=== PATIENT | male | born 1950 | race Two or more races ===

== ENCOUNTER → 2020-01-02 10:49 | Outpatient (BNVA) | payer MEDICARE, MEDICAID, SELFPAY | PROVIDERS: PCP Internal Medicine Geriatric Medicine; Visit Provider Surgery Vascular Surgery | DX: I73.9 Peripheral vascular disease, unspecified (principal) | CPT/HCPCS: 99213 ==

== ENCOUNTER 2020-01-10 05:59 | Day surgery (SDC) | payer MEDICARE, MEDICAID, SELFPAY ==
[2020-01-10] VITALS (11 sets, daily range): BP systolic 112–147; BP diastolic 59–83; PULSE 61–90; RESP 16–78; TEMP 36.1–36.6; O2SAT 94–98; BMI 29.2
[2020-01-10 06:26] LABS: Glucose, Whole Blood 166 mg/dL (60-115)
[2020-01-10 06:40] LABS: MANUAL DIFF FLAG NO
[2020-01-10 06:46] LABS: Basophils Absolute Auto 0.1 X10*3/uL (0.0-0.2); Basophils Percent Auto 0.8 % (0-2); Eosinophils Absolute Auto 0.3 X10*3/uL (0.0-0.4); Eosinophils Percent Auto 3.9 % (0-4); Hematocrit 36.7 % (42-52); Hemoglobin 12.6 g/dl (14.0-18.0); Imm Gran Abs Auto 0.05 X10*3/uL (0.00-0.03); Imm Gran Pct Auto 0.6 % (0.0-0.4); Lymphocytes Percent Auto 23.7 % (20-40); Mean Corpuscular HGB Conc 34.3 g/dl (31.0-36.0); Mean Corpuscular Hemoglobin 30.7 pg (27.0-33.0); Mean Corpuscular Volume 89.3 fL (80-98); Mean Platelet Volume 9.5 fL (9.4-12.4); Monocytes Absolute Auto 0.6 X10*3/uL (0.1-1.2); Monocytes Percent Auto 7.3 % (2-11); Neutrophils Absolute Auto 5.5 X10*3/uL (2.0-8.3); Neutrophils Percent Auto 63.7 % (45-73); Platelet Count 375 X10*3/uL (160-400); Red Blood Count 4.11 X10*6/uL (4.60-5.80); Red Cell Distribution Width 12.2 % (11.0-16.0); White Blood Count 8.6 X10*3/uL (4.8-10.8)
[2020-01-10 06:50] LABS: Prothrombin Time 11.9 SEC (10.8-13.0)
[2020-01-10 07:04] LABS: Anion Gap 13 (12-20); Blood Urea Nitrogen 20 mg/dL (9-16); Calcium 9.5 mg/dL (8.4-10.2); Carbon Dioxide 26 mmol/L (22-29); Chloride 103 mmol/L (96-108); Creatinine Clr Calc Pharmacy 47.8; Estimated Glomerular Filt Rate 52; Glucose Random 197 mg/dL (60-115); Partial Thromboplastin Time 32.4 SEC (24.1-38.0); Potassium 4.2 mmol/l (3.3-5.1); Sodium 138 mmol/L (135-145)
[2020-01-10] MEDS: 0.9 % Sodium Chloride 1,000 ML 100 ML IVCONT (07:36)
[2020-01-10] MEDS: iohexoL 300 MG/ML 100 ML INFUS..BTL 40 ML IV (11:16)
[2020-01-10] MEDS: Lidocaine HCl 1 % 20 ML VIAL 10 ML SUBCUT (11:17)
[2020-01-10] MEDS: Heparin Sodium,Porcine 5,000 UNIT/ML VIAL 10000 UNIT IVPUSH (11:23)
--- NOTE | 2020-01-10 12:20 | OP_ITS ---
SURGEON: Ventura Webber MD INDICATIONS: Dg is a 70-year-old gentleman, history of claudication. He had noninvasive testing, which demonstrated some calcified below-knee vessels. He now presents for endovascular intervention. Risks, benefits, and complications were discussed in detail with the patient. The patient understood and consented. PREOPERATIVE DIAGNOSIS: POSTOPERATIVE DIAGNOSIS: PROCEDURE PERFORMED: ESTIMATED BLOOD LOSS: Minimal. COMPLICATIONS: ANESTHESIA: Local with moderate conscious sedation performed by me for a total of 31 minutes. ASSISTANTS: SPECIMENS: None. PREPROCEDURE DIAGNOSIS: Atherosclerosis with claudication. POSTPROCEDURE DIAGNOSIS: Atherosclerosis with claudication. PROCEDURES PERFORMED: 1. Ultrasound-guided right common femoral access. 2. Aortogram with left lower extremity runoff (third order catheter placement). 3. StarClose closure device placement. DESCRIPTION OF PROCEDURE: The patient was brought to the angiography suite, prior to which timeout was called for patient identification and site verification. Bilateral groins were prepped and draped in standard surgical fashion. Under ultrasound guidance, right common femoral was accessed using micropuncture needle, wire, subsequently 4-Wallisian sheath. Flush catheter was brought up to the level of the aorta. Aortogram was then undertaken, brought down to the level of the iliacs. Iliacs were subsequently imaged. Catheter was brought up and over and parked into the SFA, through which runoff study was undertaken. No intervention was indicated. Catheter, wire, and sheath were then removed. Direct pressure was held for 10 minutes. The patient tolerated the procedure well, returned to Recovery with stable vitals. INTERPRETATION OF FILMS: 1. Ultrasound guidance demonstrated appropriate puncture. 2. Aortogram demonstrated normal-caliber aorta with good flow down to the iliacs. 3. Left lower extremity study demonstrated good flow all the way down through the common femoral, profunda femoris. SFA was patent throughout its entire length. Popliteal seemed reasonable with minimal disease. Below-knee anterior tibial and peroneal seem to be fairly normal. Posterior tibial significantly calcified, but patent all the way through with no flow-limiting stenosis and there was a completion arch at the foot. CONCLUSION: Successful diagnostic angiogram. No intervention indicated. The patient will follow up with me as an outpatient. DRAINS: None. MD BIMAL Nye/MLL / [id number]
== END 2020-01-10 13:20 | disposition home or self-care (01) ==
LOC: HO.SSS 06:00
PROVIDERS: PCP Internal Medicine Geriatric Medicine; Visit Provider Surgery Vascular Surgery
PROC: (CPT 36247; principal; 2020-01-10 07:30)
DX: E11.51 Type 2 diabetes mellitus with diabetic peripheral angiopathy without gangrene (principal); I70.212 Atherosclerosis of native arteries of extremities with intermittent claudication, left leg; Z79.4 Long term (current) use of insulin
CPT/HCPCS: 36247; 36245; 36415; 75625; 75710; 76937; 80048; 82947; 85025; 85610; 85730; 99152; 99153; C1760; C1769; C1887; J2250; J3010; Q9967

== ENCOUNTER → 2020-01-23 13:47 | Outpatient (BNVA) | payer MEDICARE, MEDICAID, SELFPAY | PROVIDERS: PCP Internal Medicine Geriatric Medicine; Visit Provider Surgery Vascular Surgery | DX: I73.9 Peripheral vascular disease, unspecified (principal); Z98.890 Other specified postprocedural states | CPT/HCPCS: 99212 ==

== ENCOUNTER 2020-02-12 08:42 | Outpatient (REF) | payer MEDICARE, MEDICAID, SELFPAY ==
[2020-02-12 10:21] LABS: MANUAL DIFF FLAG NO
[2020-02-12 10:34] LABS: Basophils Absolute Auto 0.1 X10*3/uL (0.0-0.2); Basophils Percent Auto 0.7 % (0-2); Eosinophils Absolute Auto 0.3 X10*3/uL (0.0-0.4); Eosinophils Percent Auto 3.1 % (0-4); Hematocrit 38.3 % (42-52); Imm Gran Abs Auto 0.05 X10*3/uL (0.00-0.03); Imm Gran Pct Auto 0.6 % (0.0-0.4); Lymphocytes Absolute Auto 1.9 X10*3/uL (1.2-4.9); Lymphocytes Percent Auto 23.4 % (20-40); Mean Corpuscular HGB Conc 33.9 g/dl (31.0-36.0); Mean Corpuscular Hemoglobin 30.7 pg (27.0-33.0); Mean Corpuscular Volume 90.3 fL (80-98); Monocytes Absolute Auto 0.5 X10*3/uL (0.1-1.2); Monocytes Percent Auto 5.4 % (2-11); Neutrophils Absolute Auto 5.5 X10*3/uL (2.0-8.3); Neutrophils Percent Auto 66.8 % (45-73); Platelet Count 372 X10*3/uL (160-400); Red Blood Count 4.24 X10*6/uL (4.60-5.80); Red Cell Distribution Width 12.3 % (11.0-16.0); White Blood Count 8.3 X10*3/uL (4.8-10.8)
[2020-02-12 10:49] LABS: Glucose Urine UA NEG (NEG); Leukocyte Esterase Urine NEG (NEG); Nitrite Urine NEG (NEG); Specific Gravity - Urine 1.025 (1.005-1.025); Urine Blood NEG (NEG); Urine Ketones NEG (NEG); Urine Protein 1+ MG/DL (NEG-TRACE)
[2020-02-12 10:52] LABS: Appearance Urine CLEAR; Color Urine YELLOW
[2020-02-12 11:04] LABS: Albumin Level 4.3 g/dL (3.5-5.0); Anion Gap 15 (12-20); Blood Urea Nitrogen 25 mg/dL (9-16); Calcium 9.4 mg/dL (8.4-10.2); Carbon Dioxide 27 mmol/L (22-29); Chloride 101 mmol/L (96-108); Estimated Glomerular Filt Rate 52; Magnesium 1.9 mg/dL (1.6-2.6); Phosphorus 3.8 mg/dL (2.7-4.5); Potassium 4.9 mmol/l (3.3-5.1); Sodium 138 mmol/L (135-145)
[2020-02-12 11:08] LABS: Mucus Urine 1+ /LPF; RBC Urine 0 /HPF (0); Squamous Epithelial Cell Urine 1+ /LPF; WBC Urine 0 /HPF (0-4)
[2020-02-12 11:19] LABS: Renal w Reflex Lab Use Only Order verified
[2020-02-12 11:29] LABS: Vitamin D 25-OH Total 28.5 ng/mL (>30)
[2020-02-12 12:25] LABS: Creatinine, mg/dL 113.48
[2020-02-12 12:40] LABS: Creatinine Urine 130.03 mg/dL; Microalbum/Creatinine Ratio Ur 237.6 ug/mg cr; Total Protein Urine Random 52 mg/dL (<12)
[2020-02-12 13:23] LABS: Uric Acid, mg/dL 37.5 mg/dL
[2020-02-12 13:56] LABS: Creatinine (CrCl) 1.35 mg/dL (0.5-1.4); Creatinine, 24Hr Urine 1.7 G/Day (1.0-2.0); Total Volume 24 Hour Urine 1525 mL
[2020-02-12 13:57] LABS: Creatinine, 24Hr Urine 1.7 G/Day (1.0-2.0); Total Volume 24 Hour Urine 1525 mL; Uric Acid, 24 Hr Urine 571.9 mg/Day (250-750)
[2020-02-13 17:58] LABS: Calcium, 24 Hr Urine 85 mg/24 h; Calcium/Creatinine Ratio 47 mg/g creat (30-210); Creatinine, 24U 1.83 g/24 h (0.50-2.15); Urea, 24 Hr Urine 14 g/24 h (6-17)
[2020-02-14 12:12] LABS: Calcium (PTHI) 9.7 mg/dL (8.6-10.3); PTHI 35 pg/mL (14-64)
[2020-02-19 07:42] LABS: 24hr Urine Total Volume 1525 mL; Citric Acid, 24hr Urine 859 mg/24 h (100-1300); Citric Acid/Creat Ratio 24U 486 mg/g creat (60-660)
[2020-02-19 07:59] LABS: Creatinine 24Hr Urine SEE ABOVE
== END 2020-02-12 08:43 | disposition home or self-care (01) ==
LOC: HO.LAB 08:42
PROVIDERS: PCP Internal Medicine Geriatric Medicine; Visit Provider Internal Medicine Nephrology
DX: E11.22 Type 2 diabetes mellitus with diabetic chronic kidney disease (principal); N18.30 Chronic kidney disease, stage 3 unspecified; E78.5 Hyperlipidemia, unspecified
CPT/HCPCS: 36415; 80051; 81001; 82040; 82043; 82306; 82310; 82340; 82507; 82565; 82575; 83735; 83945; 83970; 84100; 84156; 84520; 84540; 84560; 85025

== ENCOUNTER 2020-03-25 11:12 | Outpatient (REF) | payer MEDICARE, MEDICAID, SELFPAY ==
--- NOTE | 2020-03-25 | US_ITS ---
EXAMINATION: US RETROPERITONEAL LIMITED (RENAL ONLY) CLINICAL INFORMATION: Chronic kidney disease stage III. COMPARISON: Renal ultrasound 05/18/2017 TECHNIQUE: Real-time imaging of the kidneys. FINDINGS: RIGHT KIDNEY: 11.8 x 6.3 x 5.1 cm (SAG x AP x TRV). The kidney is normal in size, contour, and echogenicity. Renal cortical thickness is normal. There is a 3 mm echogenic density in the midpole with twinkle artifact questionable for a stone. No focal parenchymal lesions or hydronephrosis. LEFT KIDNEY: 10.7 x 4.9 x 5.4 cm (SAG x AP x TRV). The kidney is normal in size, contour, and echogenicity. Renal cortical thickness is normal. There is a 3 mm echogenic density in the midpole with twinkle artifact and acoustic shadowing suggestive of a stone. No focal parenchymal lesions or hydronephrosis. US/US renal BI IMPRESSION: Left renal stone and probable small right renal stone.
== END 2020-03-25 11:13 | disposition home or self-care (01) ==
LOC: HO.US 11:12
PROVIDERS: Visit Provider Internal Medicine Nephrology
DX: N18.30 Chronic kidney disease, stage 3 unspecified (principal); E11.22 Type 2 diabetes mellitus with diabetic chronic kidney disease; E78.5 Hyperlipidemia, unspecified
CPT/HCPCS: 76775

== ENCOUNTER → 2020-04-03 14:15 | Outpatient (BNVA) | payer MEDICARE, MEDICAID, SELFPAY | PROVIDERS: PCP Internal Medicine Geriatric Medicine; Visit Provider Urology | DX: N48.6 Induration penis plastica (principal) | CPT/HCPCS: 99202 ==

== ENCOUNTER → 2020-05-03 12:16 | Outpatient (BNVA) | payer MEDICARE, MEDICAID, SELFPAY | PROVIDERS: PCP Internal Medicine Geriatric Medicine; Visit Provider Internal Medicine Gastroenterology | DX: Z76.89 Persons encountering health services in other specified circumstances (principal) | CPT/HCPCS: Q3014 ==

== ENCOUNTER 2020-05-09 07:38 | Outpatient (REF) | payer MEDICARE, MEDICAID, SELFPAY | END 2020-05-09 07:39 | disposition home or self-care (01) | LOC: HO.LAB 07:38 | PROVIDERS: Visit Provider Internal Medicine | DX: Z20.822 Contact with and (suspected) exposure to COVID-19 (principal) | CPT/HCPCS: 36415; C9803; U0003; U0005 ==

== ENCOUNTER → 2020-06-20 08:14 | Day surgery (SDC) | payer MEDICARE, MEDICAID, SELFPAY ==
[2020-06-17 08:56] VITALS: BMI 28.9
--- NOTE | 2020-06-19 09:14 | HO.ANESPROP2 ---
Documented by User: Dolores Samayoa 06/19/20 09:15 HPI - Anesthesia Eval Consult details Narrative: 70yo M for Colonoscopy PMFSH Active Problems Active Problems: All Active Problems (Updated 06/17/20 @ 08:56 by Carito Higuera) PAD (peripheral artery disease) (Acute) Peyronie's disease (Acute) Colon polyp (Acute) Past Medical History Medical History (Updated 06/20/20 @ 09:02 by Nesha Driscoll) Anxiety Chronic kidney disease Diabetes Diabetic autonomic neuropathy Hyperglycemia Hyperlipidemia Hypertension S/P angiogram of extremity (~12/2019) Family History Family History Father No problems noted. Mother No problems noted. Surgical History Surgical History History of esophagogastroduodenoscopy (EGD) Hx of colonoscopy Hx of hand surgery Social History Social History (Updated 06/20/20 @ 08:59 by Nesha Driscoll) Smoking Status: Former smoker Tobacco Type: Cigarette Years Smoked: 35 Use of substances other than those prescribed or required for medical reasons: No Advance Directives Information Provided: No Meds Allergies Allergy/AdvReac Type Severity Reaction Status Date / Time No Known Allergies Allergy Verified 05/03/20 12:16 [No Known Allergies*] Home Medications Medication Instructions Recorded Confirmed Last Taken Type atorvastatin 40 mg tablet 40 mg PO DAILY 01/02/20 06/17/20 Unknown History bisacodyl 5 mg tablet,delayed 5 mg PO BEDTIME 01/02/20 05/03/20 Unknown History release escitalopram oxalate 10 mg tablet 10 mg PO DAILY 01/02/20 06/20/20 06/20/20 07:30 History hydrochlorothiazide 25 mg tablet 25 mg PO DAILY 01/02/20 06/17/20 Unknown History insulin admin supplies #1 ea 01/02/20 05/03/20 Unknown History insulin glargine 100 unit/mL 20 unit SUBCUT QPM 01/02/20 06/17/20 Unknown History subcutaneous solution irbesartan 300 mg tablet 300 mg PO DAILY 01/02/20 06/17/20 Unknown History ketotifen fumarate 0.025 % (0.035 1 drp OPHTHALMIC (EYE) BID 10/20/20 04/05/21 Unknown History %) eye drops metformin 1,000 mg tablet 1,000 mg PO DAILY 01/02/20 06/17/20 Unknown History Exam Exam Date and Time: June 19, 2020 0914 Height,Weight and Vital Signs: Height 5 ft 5 in Weight 78.925 kg Pertinent Lab Results Pertinent Lab Results: Laboratory Tests 02/12/20 02/12/20 09:26 09:26 WBC 8.3 Hgb 13.0 L Hct 38.3 L Plt Count 372 Sodium 138 Potassium 4.9 Chloride 101 Carbon Dioxide 27 BUN 25 H Creatinine 1.35 Assessment and Plan Assessment Anesthesia Assessment: Chart Reviewed Documented by User: Nesha Driscoll 06/20/20 09:03 [facility] Past Medical History Medical History (Updated 06/20/20 @ 09:02 by Nesha Driscoll) Anxiety Chronic kidney disease Diabetes Diabetic autonomic neuropathy Hyperglycemia Hyperlipidemia Hypertension S/P angiogram of extremity (~12/2019) Family History Family History Father No problems noted. Mother No problems noted. Family history of problems with anesthesia: No Surgical History Surgical History History of esophagogastroduodenoscopy (EGD) Hx of colonoscopy Hx of hand surgery History of Problems with Anesthesia: No Social History Social History (Updated 06/20/20 @ 08:59 by Nesha Driscoll) Smoking Status: Former smoker Tobacco Type: Cigarette Years Smoked: 35 Use of substances other than those prescribed or required for medical reasons: No Advance Directives Information Provided: No Meds Allergies Allergy/AdvReac Type Severity Reaction Status Date / Time No Known Allergies Allergy Verified 05/03/20 12:16 [No Known Allergies*] Home Medications Medication Instructions Recorded Confirmed Last Taken Type atorvastatin 40 mg tablet 40 mg PO DAILY 01/02/20 06/17/20 Unknown History bisacodyl 5 mg tablet,delayed 5 mg PO BEDTIME 01/02/20 05/03/20 Unknown History release escitalopram oxalate 10 mg tablet 10 mg PO DAILY 01/02/20 06/20/20 06/20/20 07:30 History hydrochlorothiazide 25 mg tablet 25 mg PO DAILY 01/02/20 06/17/20 Unknown History insulin admin supplies #1 ea 01/02/20 05/03/20 Unknown History insulin glargine 100 unit/mL 20 unit SUBCUT QPM 01/02/20 06/17/20 Unknown History subcutaneous solution irbesartan 300 mg tablet 300 mg PO DAILY 01/02/20 06/17/20 Unknown History ketotifen fumarate 0.025 % (0.035 1 drp OPHTHALMIC (EYE) BID 01/02/20 06/17/20 Unknown History %) eye drops metformin 1,000 mg tablet 1,000 mg PO DAILY 01/02/20 06/17/20 Unknown History Exam Height,Weight and Vital Signs: Vital Signs Temp Pulse Resp BP Pulse Ox 06/20/20 08:43 97.5 F 88 18 149/77 H 100 Pertinent Lab Results Pertinent Lab Results: Lab Results 06/20/20 Range/Units 08:31 POC Glucose 143 H (60-115) mg/dL Airway Mallampati Class: III TM Dist: >3cm Neck ROM: Full Loose/Missing/Broken Teeth: Yes (Some missing) Heart: RRR Lungs: CTAB Assessment and Plan Assessment Anesthesia Assessment: Anesthesia Plan Discussed and Chart Reviewed Final Anesthetic Review NPO: Yes ASA Class: III Final Preanesthetic Review: No Changes in Pt Med Stat, Meds/Allgs Chart Reviewed, Consent Obtained/Reviewed and Anes Risks/Benef Reviewed Patient Risk: Intermediate Procedure Risk: Intermediate Assessment/Block/Sedation in SS: Assess/Block/Sedation-SS Anesthetic Plan Anesthetic Plan: MAC: Disposition: Standard PACU
[2020-06-20 08:35] LABS: Glucose, Whole Blood 143 mg/dL (60-115)
[2020-06-20 08:43] VITALS: BP 149/77; PULSE 88; RESP 18; TEMP 36.4; O2SAT 100; BMI 29.2
[2020-06-20] MEDS: Lactated Ringers 1,000 ML 100 ML IVCONT (08:51)
== END ==
PROVIDERS: Visit Provider Internal Medicine Gastroenterology
DX: K63.5 Polyp of colon (principal); E11.9 Type 2 diabetes mellitus without complications; I12.9 Hypertensive chronic kidney disease with stage 1 through stage 4 chronic kidney disease, or unspecified chronic kidney disease; N18.9 Chronic kidney disease, unspecified; Z53.09 Procedure and treatment not carried out because of other contraindication
CPT/HCPCS: 82947

== ENCOUNTER 2020-08-14 08:03 | Outpatient (REF) | payer MEDICARE, SELFPAY | END 2020-08-14 08:04 | disposition home or self-care (01) | LOC: HO.LAB 08:03 | PROVIDERS: Visit Provider Internal Medicine | DX: Z20.822 Contact with and (suspected) exposure to COVID-19 (principal) | CPT/HCPCS: C9803; U0003; U0005 ==

== ENCOUNTER → 2020-11-08 14:29 | Outpatient (BNVA) | payer MEDICARE, SELFPAY | PROVIDERS: Visit Provider Urology | DX: N48.6 Induration penis plastica (principal) | CPT/HCPCS: Q3014 ==

== ENCOUNTER 2021-02-27 14:16 | Emergency (ER) | payer MEDICARE, SELFPAY ==
--- NOTE | ~2021-02-27 | XR_ITS ---
EXAMINATION: XR CHEST CLINICAL INFORMATION: Palpitations COMPARISON: None TECHNIQUE: AP portable view of the chest was obtained. FINDINGS: There is no evidence of acute parenchymal disease, pneumothorax, or pleural effusion. Heart normal size. No evidence of pulmonary edema. XR/XR chest 1V IMPRESSION: No acute disease.
[2021-02-27 14:59] VITALS: BP 147/70; BP 150/83; PULSE 86; PULSE 96; RESP 18; TEMP 36.9; O2SAT 99; BMI 29.2
--- NOTE | 2021-02-27 15:18 | ECG_ITS ---
Test Reason : PALIPITATIONS Blood Pressure : / mmHG Vent. Rate : 071 BPM Atrial Rate : 071 BPM P-R Int : 206 ms QRS Dur : 082 ms QT Int : 392 ms P-R-T Axes : 038 -57 025 degrees QTc Int : 425 ms Normal sinus rhythm Left anterior fascicular block Abnormal ECG No previous ECGs available Referred By: Portillo Jung Electronically Signed By:HERNÁN GARCIA MD
--- NOTE | 2021-02-27 15:29 | ED_ITS ---
HPI - General Adult General Chief complaint: Arrhythmia/Palpitations Stated complaint: ANXIETY W/HEART PALPITATIONS PER PT Time Seen by Provider: 02/27/21 14:45 History of Present Illness HPI narrative: Anterior male history depression, anxiety, and high blood pressure presents to ED for heart palpitations been occurring since last night. He states he had a worrisome thoughts since then been having heart palpitations. Patient denies any chest pain, arm pain, neck pain, swelling of lower extremities, calf pain, coughing up blood, fever, or chills. Patient denies any shortness of breath. Patient denies any recent trauma to the chest. Related Data Home Medications Medication Instructions Recorded Confirmed atorvastatin 40 mg tablet 40 mg PO DAILY 01/02/20 06/17/20 bisacodyl 5 mg tablet,delayed 5 mg PO BEDTIME 01/02/20 05/03/20 release (Dulcolax (bisacodyl)) escitalopram oxalate 10 mg tablet 10 mg PO DAILY 01/02/20 06/20/20 hydrochlorothiazide 25 mg tablet 25 mg PO DAILY 01/02/20 06/17/20 insulin admin supplies (InPen (for #1 ea 01/02/20 05/03/20 Humalog)) insulin glargine 100 unit/mL 20 unit SUBCUT QPM 01/02/20 06/17/20 subcutaneous solution (Lantus U-100 Insulin) irbesartan 300 mg tablet 300 mg PO DAILY 01/02/20 06/17/20 ketotifen fumarate 0.025 % (0.035 1 drp OPHTHALMIC (EYE) BID 01/02/20 06/17/20 %) eye drops (Allergy Eye (ketotifen)) metformin 1,000 mg tablet 1,000 mg PO DAILY 01/02/20 06/17/20 Previous Rx's Medication Instructions Recorded sodium,potassium,mag sulfates 17.5 See Rx Instructions PO .COMPLEX 05/03/20 gram-3.13 gram-1.6 gram oral soln #354 ml (Suprep Bowel Prep Kit) pentoxifylline 400 mg 400 mg PO BID 90 Days #180 tab 09/26/20 tablet,extended release vitamin E (dl, acetate) 450 mg 450 mg PO DAILY #90 cap 09/26/20 (1,000 unit) capsule Allergies Allergy/AdvReac Type Severity Reaction Status Date / Time No Known Allergies Allergy Verified 05/03/20 12:16 [No Known Allergies*] Review of Systems 2 Review of Systems: Yes all other systems are reviewed and are negative Constitutional: Constitutional: Reports as per HPI and Reports no additional constitutional complaints Eyes: Eyes: Reports as per HPI and Reports no additional eye complaints ENT: Reports system reviewed and no additional complaints, except as documented and Reports as per HPI Cardiovascular: Cardiovascular: Reports as per HPI and Reports no additional cardiovascular complaints Comments: Palpitations Respiratory: Respiratory: Reports as per HPI and Reports no additional respiratory complaints Gastrointestinal: Gastrointestinal: Reports as per HPI and Reports no additional gastrointestinal complaints Genitourinary: Genitourinary: Reports no additional male genitourinary complaints and Reports as per HPI Musculoskeletal: Musculoskeletal: Reports no additional musculoskeletal complaints and Reports as per HPI Neurologic: Reports system reviewed and no additional complaints, except as documented and Reports as per HPI Psychiatric: Psychiatric: Reports no additional psychiatric complaints and Reports as per HPI [facility] Past Medical History Medical History (Updated 02/27/21 @ 21:27 by JERAD Crum) Anxiety Chronic kidney disease Diabetes Diabetic autonomic neuropathy Hyperglycemia Hyperlipidemia Hypertension S/P angiogram of extremity (~12/2019) Surgical History History of esophagogastroduodenoscopy (EGD) Hx of colonoscopy Hx of hand surgery Family History Family History Father No problems noted. Mother No problems noted. Social History Social History (Updated 06/20/20 @ 08:59 by Nesha Driscoll MD) Alcohol intake: current Alcohol intake frequency: does not drink Patient Tobacco Use Status: Former Tobacco user Years Smoked: 35 Use of substances other than those prescribed or required for medical reasons: No Advance Directives: No Advance Directives Information Provided: Yes Physical Exam Vital Signs: Vital Signs: Last Vital Signs Temp 98.5 F 02/27/21 14:59 Pulse 67 02/27/21 21:36 Resp 12 02/27/21 21:36 BP 127/64 02/27/21 21:36 Pulse Ox 98 02/27/21 21:36 BMI result Body Mass Index 29.2 Const: General: cooperative, healthy appearing, comfortable, no acute distress, well developed, alert, awake and Physically active Orientation/consciousness: patient oriented x3 HENMT: Head: Yes normal to inspection, Yes No palpable skull fracture present, Yes normocephalic, Yes atraumatic and No abrasion Eyes: General: appearance normal, both eyes and all related structures Neck: Neck: Yes normal visual inspection, Yes full ROM, Yes no lymphadenopathy, Yes no meningeal signs, Yes trachea midline, No supple, No anterior neck swelling and No tender Chest: Chest palpation & inspection: normal inspection of the chest and normal palpation of entire chest wall Resp: Effort & Inspection: normal respiratory effort and able to speak in complete sentences Cardio: Jugular venous distension: no JVD Heart sounds: S1 normal heart sound present and S2 normal heart sound present GI: Inspection: Yes normal to inspection : General: No CVA tenderness and Yes no CVA tenderness Back/Spine/Pelvis: Back: no CVA tenderness, No CVA tenderness and No back tenderness Skin: General skin exam: no rashes or lesions noted and elasticity normal Neuro: General: patient oriented x3, gait normal, no meningeal signs and CN's II-XI intact bilaterally Cranial nerves: Yes CN's II-XII intact bilaterally Extrem: General: Yes normal to inspection and Yes full ROM Psych: Appearance: grossly normal, well kempt and not disheveled Course Course Course Narrative: Patient vital signs are stable. Will do EKG, cardiac evaluation, TSH COVID swab. Chest x-ray ordered. Reevaluation(s) Reevaluation #1: Patient presently asymptomatic. Troponins negative. EKG negative STEMI. Thyroid level normal. Dimer negative. Wells criteria 0. Patient eating food and is comfortable in bed. COVID swab negative. Patient informed to follow-up with primary care provider. Chest x-ray negative pneumonia. Patient never complained of any chest pain or shortness of breath. Symptoms most likely due to anxiety but patient in from he should follow up with primary care provider for referral to cardiology for Holter monitoring if necessary. Time: 21:25 Medical Decision Making [facility] Narrative Medical decision making narrative: Heart palpitation Medical Records Medical records narrative: Normal sinus rhythm. Left anterior fascicular block. Ventricular rate 71. Irritable to a 6. QRS 82. QTC 425. Negative STEMI Lab Data Result diagrams: 02/27/21 15:46 02/27/21 15:46 Labs: Lab Results 02/27/21 02/27/21 02/27/21 Range/Units 15:46 15:46 15:46 WBC 10.3 (4.8-10.8) X10*3/uL RBC 4.20 L (4.60-5.80) X10*6/uL Hgb 12.9 L (14.0-18.0) g/dl Hct 37.4 L (42.0-52.0) % MCV 89.0 (80.0-98.0) fL MCH 30.7 (27.0-33.0) pg MCHC 34.5 (31.0-36.0) g/dl RDW 12.1 (11.0-16.0) % Plt Count 395 (160-400) X10*3/uL MPV 9.4 (9.4-12.4) fL Immature Gran % (Auto) 0.3 (0.0-0.4) % Neut % (Auto) 70.4 (45-73) % Lymph % (Auto) 18.9 L (20-40) % Bulloch % (Auto) 6.9 (2-11) % Eos % (Auto) 2.8 (0-4) % Baso % (Auto) 0.7 (0-2) % Lymph # (Auto) 2.0 (1.2-4.9) X10*3/uL Bulloch # (Auto) 0.7 (0.1-1.2) X10*3/uL Eos # (Auto) 0.3 (0.0-0.4) X10*3/uL Baso # (Auto) 0.1 (0.0-0.2) X10*3/uL Abs Immat Gran (auto) 0.03 (0.00-0.03) X10*3/uL Absolute Neuts (auto) 7.3 (2.0-8.3) x10*3/uL Absolute Nucleated RBC 0.000 (0.0-0.012) X10*3/uL Nucleated RBC % (auto) 0.0 (0.0-0.2) /100WBC PT (9.9-13.0) SEC INR (0.9-1.1) APTT (24.1-38.0) SEC D-Dimer High Sensitivty NG/ML Sodium 137 (135-145) mmol/L Potassium 4.6 (3.3-5.1) mmol/L Chloride 105 (96-108) mmol/L Carbon Dioxide 24 (22-29) mmol/L Anion Gap 13 (12-20) BUN 21 H (9-16) mg/dL Creatinine 1.31 (0.5-1.4) mg/dL Estim Creat Clear Calc 48.8 Estimated GFR 54 Random Glucose 174 H (60-115) mg/dL Calcium 9.7 (8.4-10.2) mg/dL Magnesium 1.7 (1.6-2.6) mg/dL Total Bilirubin 0.4 (0.0-1.0) mg/dL AST 18 (5-37) U/L ALT 18 (0-40) U/L Alkaline Phosphatase 84 (39-117) U/L Troponin I High Sens 6.8 (<3.5-35.0) ng/L B-Natriuretic Peptide 33 (<100) pg/mL Total Protein 7.2 (6.5-8.0) g/dL Albumin 4.3 (3.5-5.0) g/dL TSH 0.87 (0.32-4.0) uIU/mL COVID-19 (TAMANNA) (Negative) COVID-19 Clin Com 02/27/21 02/27/21 02/27/21 Range/Units 15:46 15:46 19:42 WBC (4.8-10.8) X10*3/uL RBC (4.60-5.80) X10*6/uL Hgb (14.0-18.0) g/dl Hct (42.0-52.0) % MCV (80.0-98.0) fL MCH (27.0-33.0) pg MCHC (31.0-36.0) g/dl RDW (11.0-16.0) % Plt Count (160-400) X10*3/uL MPV (9.4-12.4) fL Immature Gran % (Auto) (0.0-0.4) % Neut % (Auto) (45-73) % Lymph % (Auto) (20-40) % Bulloch % (Auto) (2-11) % Eos % (Auto) (0-4) % Baso % (Auto) (0-2) % Lymph # (Auto) (1.2-4.9) X10*3/uL Bulloch # (Auto) (0.1-1.2) X10*3/uL Eos # (Auto) (0.0-0.4) X10*3/uL Baso # (Auto) (0.0-0.2) X10*3/uL Abs Immat Gran (auto) (0.00-0.03) X10*3/uL Absolute Neuts (auto) (2.0-8.3) x10*3/uL Absolute Nucleated RBC (0.0-0.012) X10*3/uL Nucleated RBC % (auto) (0.0-0.2) /100WBC PT 11.1 (9.9-13.0) SEC INR 1.0 (0.9-1.1) APTT 31.6 (24.1-38.0) SEC D-Dimer High Sensitivty < 150 NG/ML Sodium (135-145) mmol/L Potassium (3.3-5.1) mmol/L Chloride (96-108) mmol/L Carbon Dioxide (22-29) mmol/L Anion Gap (12-20) BUN (9-16) mg/dL Creatinine (0.5-1.4) mg/dL Estim Creat Clear Calc Estimated GFR Random Glucose (60-115) mg/dL Calcium (8.4-10.2) mg/dL Magnesium (1.6-2.6) mg/dL Total Bilirubin (0.0-1.0) mg/dL AST (5-37) U/L ALT (0-40) U/L Alkaline Phosphatase (39-117) U/L Troponin I High Sens 7.6 (<3.5-35.0) ng/L B-Natriuretic Peptide (<100) pg/mL Total Protein (6.5-8.0) g/dL Albumin (3.5-5.0) g/dL TSH (0.32-4.0) uIU/mL COVID-19 (TAMANNA) Negative (Negative) COVID-19 Clin Com See Note Discharge Plan Discharge Clinical Impression: Palpitations Patient Disposition: Home, Self-Care Instructions: Heart Palpitations (ED) Prescriptions: No Action pentoxifylline 400 mg tablet extended release 400 mg PO BID 90 Days Qty: 180 RF: 1 vitamin E (dl, acetate) 450 mg (1,000 unit) capsule 450 mg PO DAILY Qty: 90 RF: 1 Suprep Bowel Prep Kit 17.5-3.13-1.6 gram recon soln See Rx Instructions PO .COMPLEX Qty: 354 RF: 0 atorvastatin 40 mg tablet 40 mg PO DAILY RF: 0 irbesartan 300 mg tablet 300 mg PO DAILY RF: 0 metformin 1,000 mg tablet 1,000 mg PO DAILY RF: 0 (DME) InPen (for Humalog) Insulin Pen See Rx Instructions .ROUTE .MEDSUPPLY Qty: 1 RF: 0 Lantus U-100 Insulin 100 unit/mL solution 20 unit subcut QPM RF: 0 hydrochlorothiazide 25 mg tablet 25 mg PO DAILY RF: 0 escitalopram oxalate 10 mg tablet 10 mg PO DAILY RF: 0 bisacodyl [Dulcolax (bisacodyl)] 5 mg tablet,delayed release (DR/EC) 5 mg PO BEDTIME RF: 0 ketotifen fumarate [Allergy Eye (ketotifen)] 0.025 % (0.035 %) drops 1 drp ophthalmic (eye) BID RF: 0 Interventions: ED Discharge Assessment Last Done: 02/27/21 21:37 Discharge Date/Time: 02/27/21 21:50 Print Language: Albanian
[2021-02-27 15:58] LABS: MANUAL DIFF FLAG NO
[2021-02-27 16:00] LABS: Basophils Absolute Auto 0.1 X10*3/uL (0.0-0.2); Basophils Percent Auto 0.7 % (0-2); Eosinophils Absolute Auto 0.3 X10*3/uL (0.0-0.4); Eosinophils Percent Auto 2.8 % (0-4); Hematocrit 37.4 % (42.0-52.0); Hemoglobin 12.9 g/dl (14.0-18.0); Imm Gran Abs Auto 0.03 X10*3/uL (0.00-0.03); Imm Gran Pct Auto 0.3 % (0.0-0.4); Lymphocytes Percent Auto 18.9 % (20-40); Mean Corpuscular HGB Conc 34.5 g/dl (31.0-36.0); Mean Corpuscular Hemoglobin 30.7 pg (27.0-33.0); Mean Platelet Volume 9.4 fL (9.4-12.4); Monocytes Absolute Auto 0.7 X10*3/uL (0.1-1.2); Monocytes Percent Auto 6.9 % (2-11); Neutrophils Absolute Auto 7.3 x10*3/uL (2.0-8.3); Neutrophils Percent Auto 70.4 % (45-73); Platelet Count 395 X10*3/uL (160-400); Red Cell Distribution Width 12.1 % (11.0-16.0); White Blood Count 10.3 X10*3/uL (4.8-10.8)
[2021-02-27 16:01] VITALS: PULSE 90
[2021-02-27 16:05] LABS: Prothrombin Time 11.1 SEC (9.9-13.0)
[2021-02-27 16:08] LABS: Partial Thromboplastin Time 31.6 SEC (24.1-38.0)
[2021-02-27 16:14] LABS: Alanine Aminotransferase 18 U/L (0-40); Albumin Level 4.3 g/dL (3.5-5.0); Alkaline Phosphatase 84 U/L (39-117); Anion Gap 13 (12-20); Aspartate Amino Transferase 18 U/L (5-37); Bilirubin Total 0.4 mg/dL (0.0-1.0); Blood Urea Nitrogen 21 mg/dL (9-16); Calcium 9.7 mg/dL (8.4-10.2); Carbon Dioxide 24 mmol/L (22-29); Chloride 105 mmol/L (96-108); Creatinine Clr Calc Pharmacy 48.8; Estimated Glomerular Filt Rate 54; Glucose Random 174 mg/dL (60-115); Potassium 4.6 mmol/L (3.3-5.1); Sodium 137 mmol/L (135-145); Total Protein 7.2 g/dL (6.5-8.0)
[2021-02-27 16:15] LABS: COVID-19 Test Negative (Negative)
[2021-02-27 16:19] LABS: B Type Natriuretic Peptide 33 pg/mL (<100); Troponin-I High Sensitivity 6.8 ng/L (<3.5-35.0)
[2021-02-27 16:35] LABS: TSH reflex Free T4 0.87 uIU/mL (0.32-4.0)
[2021-02-27 16:37] LABS: D Dimer High Sensitivity < 150 NG/ML
[2021-02-27 16:41] LABS: Magnesium 1.7 mg/dL (1.6-2.6)
[2021-02-27 17:55] VITALS: BP 134/68; PULSE 67; RESP 16; O2SAT 97
--- NOTE | 2021-02-27 17:56 | PC.NURSE ---
Pt denies cp or heart palpitations at this time, awaits repeat troponin
[2021-02-27 20:16] LABS: Troponin-I High Sensitivity 7.6 ng/L (<3.5-35.0)
[2021-02-27 21:36] VITALS: BP 127/64; PULSE 67; RESP 12; O2SAT 98
== END 2021-02-27 21:50 | disposition home or self-care (01) ==
PROVIDERS: Physician Assistant; Emergency Provider Emergency Medicine; PCP Internal Medicine Geriatric Medicine
DX: R00.2 Palpitations (principal); Z20.822 Contact with and (suspected) exposure to COVID-19; F41.9 Anxiety disorder, unspecified; F32.A Depression, unspecified; E11.22 Type 2 diabetes mellitus with diabetic chronic kidney disease; I12.9 Hypertensive chronic kidney disease with stage 1 through stage 4 chronic kidney disease, or unspecified chronic kidney disease; N18.9 Chronic kidney disease, unspecified; Z79.02 Long term (current) use of antithrombotics/antiplatelets; Z79.4 Long term (current) use of insulin
CPT/HCPCS: 36415; 71045; 80053; 83735; 83880; 84443; 84484; 85025; 85379; 85610; 85730; 87635; 93005; 99283; 99284

== ENCOUNTER 2021-09-10 10:03 | Outpatient (REF) | payer MEDICARE, SELFPAY ==
--- NOTE | ~2021-09-10 | XR_ITS ---
EXAMINATION: CHEST, CERVICAL SPINE AND RIGHT KNEE. CLINICAL INFORMATION: Dyspnea. Neck pain and right knee pain. COMPARISON: Chest 02/27/2021. TECHNIQUE: Chest 2 views. Cervical spine 6 views. Right knee 4 views. FINDINGS: Chest: The lungs are well-expanded and clear of acute pneumonic process. The heart size and pulmonary vascularity is normal. No gross bony abnormality seen. Cervical spine: There is mild straightening of cervical lordosis. There is loss of C5-C6, C6-C7 disc heights with mild ventral and posterior spondylosis. Rest the disc heights are normal. There is no visible acute fracture, dislocation or lytic process seen. On oblique views there is mild bilateral narrowing of C5-C6 and C6-C7 neural foramina from uncovertebral hypertrophic changes. There is mild mild S-shaped scoliosis of cervical dorsal spine. Mild left facet joint arthropathy seen at the C2-C3 disc level. The prevertebral soft tissues are normal. Right knee: The tricompartment joint space is maintained normal. There is no bony erosive changes. No acute fractures seen. There is anterior superior patellar enthesophyte. The soft tissues are normal. XR/XR chest 2V IMPRESSION: Mild degenerative changes C5-C6 and C6-C7 disc levels with mild posterior cervical spondylosis. There is bilateral moderate narrowing of neural foramina at these disc levels from uncovertebral hypertrophic changes. Unremarkable right knee exam. Unremarkable chest exam.
--- NOTE | ~2021-09-10 | XR_ITS ---
EXAMINATION: CHEST, CERVICAL SPINE AND RIGHT KNEE. CLINICAL INFORMATION: Dyspnea. Neck pain and right knee pain. COMPARISON: Chest 02/27/2021. TECHNIQUE: Chest 2 views. Cervical spine 6 views. Right knee 4 views. FINDINGS: Chest: The lungs are well-expanded and clear of acute pneumonic process. The heart size and pulmonary vascularity is normal. No gross bony abnormality seen. Cervical spine: There is mild straightening of cervical lordosis. There is loss of C5-C6, C6-C7 disc heights with mild ventral and posterior spondylosis. Rest the disc heights are normal. There is no visible acute fracture, dislocation or lytic process seen. On oblique views there is mild bilateral narrowing of C5-C6 and C6-C7 neural foramina from uncovertebral hypertrophic changes. There is mild mild S-shaped scoliosis of cervical dorsal spine. Mild left facet joint arthropathy seen at the C2-C3 disc level. The prevertebral soft tissues are normal. Right knee: The tricompartment joint space is maintained normal. There is no bony erosive changes. No acute fractures seen. There is anterior superior patellar enthesophyte. The soft tissues are normal. XR/XR knee RT 4V IMPRESSION: Mild degenerative changes C5-C6 and C6-C7 disc levels with mild posterior cervical spondylosis. There is bilateral moderate narrowing of neural foramina at these disc levels from uncovertebral hypertrophic changes. Unremarkable right knee exam. Unremarkable chest exam.
--- NOTE | ~2021-09-10 | XR_ITS ---
EXAMINATION: CHEST, CERVICAL SPINE AND RIGHT KNEE. CLINICAL INFORMATION: Dyspnea. Neck pain and right knee pain. COMPARISON: Chest 02/27/2021. TECHNIQUE: Chest 2 views. Cervical spine 6 views. Right knee 4 views. FINDINGS: Chest: The lungs are well-expanded and clear of acute pneumonic process. The heart size and pulmonary vascularity is normal. No gross bony abnormality seen. Cervical spine: There is mild straightening of cervical lordosis. There is loss of C5-C6, C6-C7 disc heights with mild ventral and posterior spondylosis. Rest the disc heights are normal. There is no visible acute fracture, dislocation or lytic process seen. On oblique views there is mild bilateral narrowing of C5-C6 and C6-C7 neural foramina from uncovertebral hypertrophic changes. There is mild mild S-shaped scoliosis of cervical dorsal spine. Mild left facet joint arthropathy seen at the C2-C3 disc level. The prevertebral soft tissues are normal. Right knee: The tricompartment joint space is maintained normal. There is no bony erosive changes. No acute fractures seen. There is anterior superior patellar enthesophyte. The soft tissues are normal. XR/XR cervical spine 5V IMPRESSION: Mild degenerative changes C5-C6 and C6-C7 disc levels with mild posterior cervical spondylosis. There is bilateral moderate narrowing of neural foramina at these disc levels from uncovertebral hypertrophic changes. Unremarkable right knee exam. Unremarkable chest exam.
== END 2021-09-10 10:04 | disposition home or self-care (01) ==
LOC: HO.XRAY 10:03
PROVIDERS: PCP Internal Medicine Geriatric Medicine; Visit Provider Internal Medicine Geriatric Medicine
DX: M25.561 Pain in right knee (principal); M54.2 Cervicalgia; R06.00 Dyspnea, unspecified
CPT/HCPCS: 71046; 72050; 73564

== ENCOUNTER 2021-10-24 12:24 | Outpatient (REF) | payer OTHER, SELFPAY ==
--- NOTE | ~2021-10-24 | XR_ITS ---
EXAMINATION: XR CHEST CLINICAL INFORMATION: Cough COMPARISON: 09/10/2021, 02/27/2021 TECHNIQUE: 2 views of the chest were obtained. FINDINGS: Frontal view shows questionable faint nodular density overlying confluence right anterior second and right posterior fifth ribs. Additional apical lordotic view is suggested to confirm artifact and exclude nodule in this area. No airspace consolidation or groundglass opacity or effusion. Heart size normal. Vascularity normal. Costophrenic sulci are clear. Heart size normal. The hilar and mediastinal contours normal. There are multilevel degenerative disc changes thoracic spine. XR/XR chest 2V IMPRESSION: -No airspace consolidation or effusion. -Question nodular opacity versus artifact over rib confluence right lateral apex. Recommend apical lordotic view to further assess.
== END 2021-10-24 12:25 | disposition home or self-care (01) ==
LOC: HO.XRAY 12:24
PROVIDERS: Absent Provider Internal Medicine Geriatric Medicine; PCP Internal Medicine Geriatric Medicine; Visit Provider Emergency Medicine
DX: R05.9 Cough, unspecified (principal)
CPT/HCPCS: 71046

== ENCOUNTER 2021-10-28 08:56 | Outpatient (REF) | payer OTHER, SELFPAY ==
--- NOTE | ~2021-10-28 | XR_ITS ---
EXAMINATION: XR CHEST CLINICAL INFORMATION: Solitary pulmonary nodule. COMPARISON: None TECHNIQUE: 2 views of the chest were obtained. FINDINGS: No significant abnormality is noted involving the heart, lungs, mediastinum, bony thorax or soft tissues. XR/XR chest 2V IMPRESSION: Unremarkable chest examination.
== END 2021-10-28 08:57 | disposition home or self-care (01) ==
LOC: HO.XRAY 08:56
PROVIDERS: PCP Internal Medicine Geriatric Medicine; Visit Provider Internal Medicine Geriatric Medicine
DX: R91.1 Solitary pulmonary nodule (principal)
CPT/HCPCS: 71046

== ENCOUNTER 2021-12-24 09:15 | Outpatient (REF) | payer OTHER, SELFPAY ==
--- NOTE | ~2021-12-24 | XR_ITS ---
EXAMINATION: XR CHEST 2 VIEWS CLINICAL INFORMATION: Question pulmonary nodule. COMPARISON: Prior chest radiographs, most recently 10/29/2021 and 10/24/2021. TECHNIQUE: Frontal and lateral views of the chest were obtained. FINDINGS: The heart, great vessels, pulmonary vasculature and mediastinum are normal. The lungs show no focal infiltrate, effusion or pneumothorax. There is no mass, nodule or thoracic lymphadenopathy. There is biapical pleural scarring. There is mild elevation of the right hemidiaphragm. There is no acute osseous abnormality. There are multi-focal mild degenerative changes of the thoracic spine. XR/XR chest 2V IMPRESSION: No active cardiopulmonary disease.
== END 2021-12-24 09:16 | disposition home or self-care (01) ==
LOC: HO.XRAY 09:15
PROVIDERS: PCP Internal Medicine Geriatric Medicine; Visit Provider Internal Medicine Geriatric Medicine
DX: R91.1 Solitary pulmonary nodule (principal)
CPT/HCPCS: 71046

== ENCOUNTER 2022-10-28 11:00 | Outpatient (RCR) | payer MEDICARE, MEDICAID, SELFPAY | END 2022-11-11 10:29 | disposition home or self-care (01) | LOC: HO.PT 11:00 | PROVIDERS: PCP Internal Medicine Geriatric Medicine; Visit Provider Internal Medicine Geriatric Medicine | DX: M47.812 Spondylosis without myelopathy or radiculopathy, cervical region (principal); M54.2 Cervicalgia | CPT/HCPCS: 97012; 97110; 97140; 97161; 97535 ==

== ENCOUNTER 2023-02-15 13:53 | Outpatient (AMB) | payer MEDICARE, MEDICAID, SELFPAY ==
--- NOTE | 2023-02-15 14:11 | MHC.OFFVIS ---
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 Patient reports that he is having neck pain that radiates to bilateral extremities. 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 He complains of pain which radiates from his neck down into his shoulders & arms. He has pain in the axial neck that extends into the head. He does not have shoulder pain. [facility] Medical History (Updated 02/16/23 @ 07:42 by Gume Singh MD) Hyperlipidemia S/P angiogram of extremity (~12/2019) Diabetic autonomic neuropathy Chronic kidney disease Hyperglycemia Anxiety Diabetes Hypertension Surgical History History of esophagogastroduodenoscopy (EGD) Hx of colonoscopy Hx of hand surgery Family History Father No problems noted. Mother No problems noted. Social History (Updated 06/20/20 @ 08:59 by Nesha Driscoll MD) Alcohol intake: current Alcohol intake frequency: does not drink Patient Tobacco Use Status: Former Tobacco user Years Smoked: 35 Review of Systems Const All systems reviewed & are unremarkable except as noted in HPI and below Physical Exam Const General: no acute distress, alert and awake Orientation/consciousness: patient oriented x3 HEENT Head: Yes normocephalic and Yes atraumatic Eyes EOM: EOMs intact bilaterally Resp Effort & Inspection: normal respiratory effort and able to speak in complete sentences Cardio Jugular venous distension: no JVD Skin General skin exam: turgor normal Rashes: no rashes Neuro General: patient oriented x3 Extrem Other: Dull ttp axial neck FUll ROM bilateral shoulders Psych Appearance: grossly normal Affect: normal affect Attitude: cooperative Results Reviewed Results Reviewed: I personally reviewed relevant radiographs. Left shoulder with calcification at RTC insertion. Radiographs otherwise unremarkable Assessment & Plan Assessment & Plan (1) Neck arthralgia: Code(s): M54.2 - Cervicalgia Plan: This is a 73 yo M with axial neck pain without radiations. I referred him to pain management for further workup. No symptomatic shoulder pathology. Orders: Orders XR shoulder LT min 2V 02/15/23 M25.519 - Pain in unspecified shoulder XR shoulder RT min 2V 02/15/23 M25.519 - Pain in unspecified shoulder Referrals Pain Management Referral M54.2 - Cervicalgia Coding Level of Care Code New Pt Level 3 (02108) Diagnoses Neck arthralgia M54.2
== END 2023-02-15 15:03 | disposition home or self-care (01) ==
PROVIDERS: PCP Internal Medicine Geriatric Medicine; Visit Provider Orthopaedic Surgery
DX: M54.2 Cervicalgia (principal); M75.02 Adhesive capsulitis of left shoulder
CPT/HCPCS: 99203

== ENCOUNTER 2023-02-15 13:53 | Outpatient (REF) | payer MEDICARE, MEDICAID, SELFPAY ==
--- NOTE | ~2023-02-15 | XR_ITS ---
EXAMINATION: XR SHOULDER, BILATERAL CLINICAL INFORMATION: Pain COMPARISON: None available. TECHNIQUE: 3 views of each shoulder FINDINGS: RIGHT: No acute visible fracture or dislocation. Mild degenerative changes of the glenohumeral and acromioclavicular joint. Joint spaces and alignment are otherwise maintained. Soft tissues are unremarkable. Visualized portions of the right chest are unremarkable. LEFT: No acute visible fracture or dislocation. Mild to moderate degenerative changes of the glenohumeral and acromioclavicular joint. Suggestion of calcific tendinosis of the supraspinatus tendon. Spaces and alignment are otherwise maintained. Soft tissues are unremarkable. Visualized portions of the right chest are unremarkable. XR/XR shoulder LT min 2V IMPRESSION: 1. No acute visible fracture or dislocation. 2. Bilateral mild to moderate degenerative changes of the bilateral glenohumeral and acromioclavicular joints. 3. Suggestion of calcific tendinosis of the left supraspinatus tendon.
--- NOTE | ~2023-02-15 | XR_ITS ---
EXAMINATION: XR SHOULDER, BILATERAL CLINICAL INFORMATION: Pain COMPARISON: None available. TECHNIQUE: 3 views of each shoulder FINDINGS: RIGHT: No acute visible fracture or dislocation. Mild degenerative changes of the glenohumeral and acromioclavicular joint. Joint spaces and alignment are otherwise maintained. Soft tissues are unremarkable. Visualized portions of the right chest are unremarkable. LEFT: No acute visible fracture or dislocation. Mild to moderate degenerative changes of the glenohumeral and acromioclavicular joint. Suggestion of calcific tendinosis of the supraspinatus tendon. Spaces and alignment are otherwise maintained. Soft tissues are unremarkable. Visualized portions of the right chest are unremarkable. XR/XR shoulder RT min 2V IMPRESSION: 1. No acute visible fracture or dislocation. 2. Bilateral mild to moderate degenerative changes of the bilateral glenohumeral and acromioclavicular joints. 3. Suggestion of calcific tendinosis of the left supraspinatus tendon.
== END 2023-02-15 13:54 | disposition home or self-care (01) ==
LOC: HO.HOSX 13:53
PROVIDERS: PCP Internal Medicine Geriatric Medicine; Visit Provider Orthopaedic Surgery
DX: M54.2 Cervicalgia (principal); M25.511 Pain in right shoulder; M25.512 Pain in left shoulder
CPT/HCPCS: 73030; 99202

== ENCOUNTER 2023-02-22 10:14 | Outpatient (AMB) | payer MEDICARE, MEDICAID, SELFPAY ==
--- NOTE | 2023-02-22 10:27 | A.OFFVIS_ITS ---
Intake Vital Signs 02/22/23 10:42 Height 5 ft 5 in Weight 171 lb BMI 28.5 BP 128/62 Blood Pressure Location Lt brachial Position Sitting Respiration 14 Pulse 92 Pulse Source Pulse Oximeter Pulse Oximetry (%) 98 Oxygen Delivery Method Room Air Intake Visit Reasons: Cervicalgia/confirmed Intake Note: patient comes in for initial visit was referred by orthopedic. He reports pain level of 8/10. Allergies No Known Allergies [No Known Allergies*] Allergy (Verified 05/03/20 12:16) HPI HPI Comments History of Present Illness Details Dg is very pleasant 73 years old Slovenian-speaking gentleman who presents in my office with complains on pain in the base of his skull at these top of his neck with radiation into the posterior head occipital area as well as into bilateral shoulders. He reports that he cannot sleep normally because of his pain he may be able to perform activities of daily living he can take care of himself but he cannot function normally. 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 He reports that movements aggravates his pain and heat from the shower make his pain slightly better. His pain is most severe in the morning. In terms of tissue damage he reports his pain is pulsing, throbbing, pounding, stabbing, lancinating, tugging, pulling, ranging, dull, hurting, heavy, spreading, radiating, piercing, tight, squeezing, tearing sensation. He had physical therapy with some help. He never had any images. His past medical history significant for hypertension and diabetes. Past surgical history significant for Dupuytren contracture bilateral removal. Social history retired individual he denies smoking cigarettes drinking alcohol using recreational drugs. [facility] Medical History (Updated 02/22/23 @ 17:17 by Chase Bateman MD) Hyperlipidemia S/P angiogram of extremity (~12/2019) Diabetic autonomic neuropathy Chronic kidney disease Hyperglycemia Anxiety Diabetes Hypertension Surgical History History of esophagogastroduodenoscopy (EGD) Hx of colonoscopy Hx of hand surgery Family History Father No problems noted. Mother No problems noted. Social History (Updated 06/20/20 @ 08:59 by Nesha Driscoll MD) Alcohol intake: current Alcohol intake frequency: does not drink Patient Tobacco Use Status: Former Tobacco user Years Smoked: 35 Review of Systems Const Denies fatigue, Denies weight gain and Denies weight loss Eyes Denies blurry vision ENT Denies sore throat Card Denies dyspnea Resp Denies cough and Denies dyspnea GI Denies constipation and Denies diarrhea Denies dysuria and Denies urinary frequency Musc Denies numbness and Reports tingling Neuro Denies numbness, Reports tingling and Denies tremor(s) Psych Reports abnormal sleep pattern and Denies depression Endo Denies fatigue Physical Exam Vital Signs: Last Vital Signs Pulse 92 02/22/23 10:42 Resp 14 02/22/23 10:42 BP 128/62 02/22/23 10:42 Pulse Ox 98 02/22/23 10:42 Oxygen Delivery Method Room Air 02/22/23 10:42 BMI result Body Mass Index 28.5 Const General: no acute distress, alert and awake Orientation/consciousness: patient oriented x3 HEENT Head: Yes normocephalic and Yes atraumatic Eyes EOM: EOMs intact bilaterally Neck Other: Significant tenderness on palpation in the projection of bilateral atlantooccipital joints. No tenderness on palpation on paraspinal spinal region cervical spine. Mild tenderness on palpation in bilateral shoulders. Axial compression does not aggravate his pain but axial head extension aggravate his pain!. Flexing head forward and flexing head backwards equal aggravate his pain. 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 I could have offered him injections however never performed this procedures. I offered him to be referred to [facility] for this procedure but he stated that this is very far for him to considered. In this situation I can offer him only physical therapy which was helpful for him continue to perform home exercise program. I will start him on small dose of tizanidine. Orders: Orders PT Evaluation and Treatment Today M47.811 - Spondylosis without myelopathy or radiculopathy, kwcdzwft-ipbnajl-roxet region, M54.2 - Cervicalgia Medications: New tizanidine 2 mg PO Q8H PRN 90 tabs 8RF muscle spasticity 30 days Coding Level of Care Code New Pt Level 3 (63038) Diagnoses Osteoarthritis of xbvedswl-lrztrjm-putgv region without myelopathy or radiculopathy M47.811 Neck arthralgia M54.2
[2023-02-22 10:42] VITALS: BP 128/62; PULSE 92; RESP 14; O2SAT 98; BMI 28.5
== END 2023-02-22 11:20 | disposition home or self-care (01) ==
PROVIDERS: PCP Internal Medicine Geriatric Medicine; Referring Provider Orthopaedic Surgery; Visit Provider Anesthesiology
DX: M47.811 Spondylosis without myelopathy or radiculopathy, occipito-atlanto-axial region (principal); M54.2 Cervicalgia
CPT/HCPCS: 99203

== ENCOUNTER → 2023-02-22 10:14 | Outpatient (BNVA) | payer MEDICARE, MEDICAID, SELFPAY | PROVIDERS: PCP Internal Medicine Geriatric Medicine; Referring Provider Orthopaedic Surgery; Visit Provider Anesthesiology | DX: M47.811 Spondylosis without myelopathy or radiculopathy, occipito-atlanto-axial region (principal); M54.2 Cervicalgia | CPT/HCPCS: 99202 ==

== ENCOUNTER 2023-05-21 08:04 | Outpatient (REF) | payer MEDICARE, MEDICAID, SELFPAY ==
[2023-05-21 11:26] LABS: MANUAL DIFF FLAG NO
[2023-05-21 11:30] LABS: Basophils Absolute Auto 0.1 X10*3/uL (0.0-0.2); Eosinophils Absolute Auto 0.4 X10*3/uL (0.0-0.4); Eosinophils Percent Auto 4.4 % (0-4); Hematocrit 43.5 % (42.0-52.0); Hemoglobin 14.4 g/dl (14.0-18.0); Imm Gran Abs Auto 0.04 X10*3/uL (0.00-0.03); Imm Gran Pct Auto 0.4 % (0.0-0.4); Lymphocytes Absolute Auto 2.2 X10*3/uL (1.2-4.9); Lymphocytes Percent Auto 23.8 % (20-40); Mean Corpuscular HGB Conc 33.1 g/dl (31.0-36.0); Mean Corpuscular Hemoglobin 30.3 pg (27.0-33.0); Mean Corpuscular Volume 91.6 fL (80.0-98.0); Mean Platelet Volume 10.1 fL (9.4-12.4); Monocytes Absolute Auto 0.6 X10*3/uL (0.1-1.2); Monocytes Percent Auto 6.7 % (2-11); Neutrophils Absolute Auto 5.9 x10*3/uL (2.0-8.3); Neutrophils Percent Auto 63.7 % (45-73); Platelet Count 424 X10*3/uL (160-400); Red Blood Count 4.75 X10*6/uL (4.60-5.80); Red Cell Distribution Width 12.4 % (11.0-16.0); White Blood Count 9.2 X10*3/uL (4.8-10.8)
[2023-05-21 12:02] LABS: Creatinine Urine 69.19 mg/dL; Microalbum/Creatinine Ratio Ur 267.3 ug/mg cr (<30)
[2023-05-21 12:53] LABS: Alanine Aminotransferase 21 U/L (0-40); Albumin Level 4.2 g/dL (3.5-5.0); Alkaline Phosphatase 85 U/L (39-117); Anion Gap 13 (12-20); Aspartate Amino Transferase 20 U/L (5-37); Bilirubin Total 0.4 mg/dL (0.0-1.0); Blood Urea Nitrogen 22 mg/dL (9-16); Calcium 9.6 mg/dL (8.4-10.2); Carbon Dioxide 28 mmol/L (22-29); Chloride 106 mmol/L (96-108); Cholesterol 132 mg/dL (<200); Estimated Glomerular Filt Rate 55; Glucose Random 83 mg/dL (60-115); HDL Cholesterol 36 mg/dL (>40); LDL Cholesterol Calculated 64 mg/dL (<100); Potassium 4.6 mmol/L (3.3-5.1); Sodium 142 mmol/L (135-145); Total Protein 7.5 g/dL (6.5-8.0); Triglycerides 161 mg/dL (<150)
== END 2023-05-21 08:05 | disposition home or self-care (01) ==
LOC: HO.HHCL 08:04
PROVIDERS: Visit Provider Internal Medicine Geriatric Medicine
DX: E11.69 Type 2 diabetes mellitus with other specified complication (principal); E11.22 Type 2 diabetes mellitus with diabetic chronic kidney disease; I12.9 Hypertensive chronic kidney disease with stage 1 through stage 4 chronic kidney disease, or unspecified chronic kidney disease; E78.5 Hyperlipidemia, unspecified; N18.32 Chronic kidney disease, stage 3b
CPT/HCPCS: 36415; 80053; 80061; 82043; 82570; 85025

== ENCOUNTER 2023-12-03 11:31 | Outpatient (REF) | payer MEDICARE, MEDICAID, SELFPAY ==
--- NOTE | ~2023-12-03 | XR_ITS ---
EXAMINATION: XR CERVICAL SPINE CLINICAL INFORMATION: Chronic neck pain. COMPARISON: Cervical spine September 10, 2021 TECHNIQUE: AP, lateral, odontoid and bilateral oblique views. FINDINGS: The cervical vertebrae have normal height and alignment. No fracture or bone destruction. There is no prevertebral soft tissue swelling. There is degenerative spondylosis. Marked disc height narrowing with vertebral endplate spur C5-C6 and C6-C7 disc space. Severity similar to prior exam of 2001. There is mild narrowing of the neural foramina bilaterally at C5-C6 due to posterior spurs at the uncinate process of the vertebrae. There is also slight narrowing of the right neural foramina at C6-C7. XR/XR cervical spine 4V IMPRESSION: 1. No acute abnormality. 2. Degenerative spondylosis of cervical spine. Marked disc height narrowing C5-C6 and C6-C7. Electronically signed by: Christopher Vigil MD 12/03/2023 03:47 PM EDT
[2023-12-03 16:17] LABS: Appearance Urine Clear; Color Urine Yellow; Glucose Urine UA >=1000 mg/dL (Negative); Leukocyte Esterase Urine Negative (Negative); Nitrite Urine Negative (Negative); PH 5.5 (5.0-9.0); Specific Gravity - Urine >= 1.030 (1.005-1.025); UMIC TRIGGER UACC YES; Urine Blood Negative (Negative); Urine Ketones Negative (Negative); Urine Protein 30 (1+) mg/dL (Neg-Trace)
[2023-12-03 16:24] LABS: Bacteria Urine None Seen (None Seen); Hyaline Casts Urine 0-2 /LPF (0-2); RBC Urine 0-2 /HPF (0-2); Squamous Epithelial Cell Urine 0-2 /HPF (0-2); WBC Urine 0-5 /HPF (0-5)
[2023-12-03 16:58] LABS: Anion Gap 16 (12-20); Blood Urea Nitrogen 22 mg/dL (9-16); Calcium 10.4 mg/dL (8.4-10.2); Carbon Dioxide 21 mmol/L (22-29); Chloride 107 mmol/L (96-108); Estimated Glomerular Filt Rate 45; Glucose Random 124 mg/dL (60-115); Potassium 4.7 mmol/L (3.3-5.1); Sodium 139 mmol/L (135-145)
[2023-12-03 17:10] LABS: Prostate Specific Antigen 2.86 ng/mL (<0.05-4.0)
== END 2023-12-03 11:32 | disposition home or self-care (01) ==
LOC: HO.HHCL 11:31
PROVIDERS: Visit Provider Internal Medicine Geriatric Medicine
DX: M54.2 Cervicalgia (principal); G89.29 Other chronic pain; R82.90 Unspecified abnormal findings in urine; N40.0 Benign prostatic hyperplasia without lower urinary tract symptoms; E11.69 Type 2 diabetes mellitus with other specified complication; Z12.5 Encounter for screening for malignant neoplasm of prostate
CPT/HCPCS: 36415; 72050; 80048; 81001; 84153

== ENCOUNTER 2024-04-10 08:07 | Outpatient (REF) | payer MEDICARE, MEDICAID, SELFPAY ==
[2024-04-10 11:31] LABS: MANUAL DIFF FLAG NO
[2024-04-10 11:34] LABS: Basophils Absolute Auto 0.1 X10*3/uL (0.0-0.2); Basophils Percent Auto 0.9 % (0-2); Eosinophils Absolute Auto 0.3 X10*3/uL (0.0-0.4); Eosinophils Percent Auto 4.4 % (0-4); Hematocrit 42.9 % (42.0-52.0); Hemoglobin 14.4 g/dl (14.0-18.0); Imm Gran Abs Auto 0.04 X10*3/uL (0.00-0.03); Imm Gran Pct Auto 0.5 % (0.0-0.4); Lymphocytes Absolute Auto 1.3 X10*3/uL (1.2-4.9); Lymphocytes Percent Auto 17.2 % (20-40); Mean Corpuscular HGB Conc 33.6 g/dl (31.0-36.0); Mean Corpuscular Hemoglobin 30.8 pg (27.0-33.0); Mean Corpuscular Volume 91.7 fL (80.0-98.0); Monocytes Absolute Auto 0.6 X10*3/uL (0.1-1.2); Monocytes Percent Auto 7.9 % (2-11); Neutrophils Absolute Auto 5.2 x10*3/uL (2.0-8.3); Neutrophils Percent Auto 69.1 % (45-73); Platelet Count 366 X10*3/uL (160-400); Red Blood Count 4.68 X10*6/uL (4.60-5.80); Red Cell Distribution Width 12.6 % (11.0-16.0); White Blood Count 7.5 X10*3/uL (4.8-10.8)
[2024-04-10 12:01] LABS: Alanine Aminotransferase 27 U/L (0-40); Alkaline Phosphatase 74 U/L (39-117); Anion Gap 12 (12-20); Aspartate Amino Transferase 27 U/L (5-37); Bilirubin Total 0.5 mg/dL (0.0-1.0); Blood Urea Nitrogen 23 mg/dL (9-16); Carbon Dioxide 27 mmol/L (22-29); Chloride 105 mmol/L (96-108); Cholesterol 117 mg/dL (<200); Estimated Glomerular Filt Rate 44; Glucose Random 169 mg/dL (60-115); HDL Cholesterol 37 mg/dL (>40); LDL Cholesterol Calculated 49 mg/dL (<100); Potassium 4.6 mmol/L (3.3-5.1); Sodium 139 mmol/L (135-145); Total Protein 7.7 g/dL (6.5-8.0); Triglycerides 156 mg/dL (<150)
[2024-04-10 12:03] LABS: Creatinine Urine 77.62 mg/dL
--- OUTSIDE RECORDS SUMMARY | 2024-04-10 12:34 | XMS_ITS | Encounter Summary ---
Author Organization [facility] Address [address] [place] [address] Care Team Providers Care Skein Winder Name Role Phone Name, Luis Manuel VLEARDE Primary Care Provider [phone] Jennifer Hernandez PharmD Unavailable [phone] Encounter Details Date Type Department Care Team ([facility] st Contact Info) Description 03/24/2024 9:30 AM EST Office Visit [facility] [address] [place] [address] Barbie Nova MD [address] [place] [address] Actinic keratoses (Primary Dx); Seborrheic dermatitis Social History Tobacco Use Types Packs/Day Years Used Date Smoking Tobacco: Former Cigarettes Passive Smoke Exposure: Never Smokeless Tobacco: Never Alcohol Use Standard Drinks/Week Comments Not Currently 0 (1 standard drink = 0.6 oz pur e alcohol) Alcohol Answer Date Recorded Frequency of Alcohol Consumption Not on file 08/31/2023 Average Number of Drinks Not on file 024 Frequency of Binge Drinking Not on file 08/13 Score 0 08/31/2023 Depression Answer Date Recorded Patient Health Questionnaire-9 Score 0 05/18/2023 Patient Health Questionnaire-9 Score 0 05/18/2023 Last PHQ-9: Questionnaire Data Not on file 0 05/18/2023 Housing Stability Answer Date Recorded What is your housing situation today? I have antonia thornton 05/18/[address] you li ve. Do you have problems with any of the following? None of the above 05/18/2023 Food Insecurity Answer Date Recorded Within the past 12 months, y ou worried that your food would run out before you got money to buy more: Never True 05/18/2023 Within the past 12 months,th e food you bought just didn't last and you didn't have enough money to get more: Never True 07/2023 Transportation Answer Date Recorded In the past 12 months, has l ack of transportation kept you from medical appts, meetings, work or from getting things needed for daily living? No 05/18/2023 Utilities Answer Date Recorded In the past 12 months, has t he electric, gas, oil or water company threatened to shut off services in your home? No 05/18/2023 Depression Answer Date Recorded Patient Health Questionnaire-2 Score 0 05/18/2023 Sex and Gender Information Value Date Recorded Sex Assigned at Male 01/12/2022 10:32 AM EDT Legal Sex Male 10:32 AM EDT Gender Identity Male 01/12/2022 10:32 AM EDT Sexual Orientation Straight 01/12/2022 10 :32 AM EDT documented as of this encounter Last Filed Vital Signs Vital Sign Reading Time Taken Comments Blood Pressure 120/58 03/24/2024 9:17 AM EST Pulse 68 03/24/2024 9:17 AM EST Temperature 36.6 ??C (97.8 ??F) 03/24/2024 9:17 AM ES T Respiratory Rate 14 03/24/2024 9:17 AM EST Oxygen Saturation - - Inhaled Oxygen Concentration - - Weight 76.9 kg (169 lb 8 oz) 03/24/2024 9:17 AM EST Height 167.6 cm (5' 6 ) 03/24/2024 9:17 AM EST Body Mass Index 27.36 03/24/2024 9:17 AM EST documented in this encounter Progress Notes * Barbie Nova MD - 03/24/2024 9:30 AM EST Subjective Patient ID: Dg Chand is a 74 y.o. male who presents for No chief complaint on file.. HPI 74 yr old man with hx of AK here today for follow up. He has itchy spots on his eyebrows and scalp to be checked. Review of Systems Constitutional: Negative for diaphoresis, fatigue and fever. HENT: Negative for ear discharge, ear pain, facial swelling and hearing loss. Respiratory: Negative for cough, choking, chest tightness and shortness of breath. Cardiovascular: Negative for chest pain and leg swelling. Gastrointestinal: Negative for abdominal distention, abdominal pain and anal bleeding. Endocrine: Negative for cold intolerance and heat intolerance. Genitourinary: Negative for enuresis, flank pain and frequency. Musculoskeletal: Negative for arthralgias, back pain and gait problem. Neurological: Negative for dizziness, facial asymmetry and headaches. Psychiatric/Behavioral: Negative for agitation, behavioral problems and confusion. Objective Physical Exam Constitutional: Appearance: Normal appearance. HENT: Head: Normocephalic. Nose: Nose normal. Eyes: Extraocular Movements: Extraocular movements intact. Pulmonary: Effort: Pulmonary effort is normal. Musculoskeletal: Cervical back: Normal range of motion and neck supple. Skin: General: Skin is warm and dry. Comments: Multiple hyperkeratotic papules on scalp , eyebrows and L and R forearms Mild erythema with fine scales on eyebrows and nasolabial folds Neurological: Mental Status: He is alert. Mental status is at baseline. Assessment/Plan Diagnoses and all orders for this visit: Actinic keratoses # Actinic keratoses, 7lesions -premalignant nature discussed. Discussed the importance of photoprotection and photoavoidance -Discussed treatment options including destruction with liquid nitrogen cryotherapy, immunomodulating creams, and topical chemotherapies. The patient chose liquid nitrogen cryotherapy. See procedure note. Destruction with Cryotherapy Procedure Note: Indication: Premalignant Lesions Total of 7 lesions Location: as in physical exam Procedure: The risks, benefits and alternatives were discussed with the patient. Risks include, butare not limited to blistering, pain, dyspigmentation, inefficacy, and potential transformation intoa non-melanoma skin cancer despite treatment. The patient provided verbal consent for treatment with liquid nitrogen. Two freeze thaw cycles were performed. The patient tolerated the procedure well. There were no complications. Aftercare discussed with the patient. Seborrheic dermatitis Unstable, affecting face area Apply hydrocortisone 2.5% cream bid as needed documented in this encounter Plan of Treatment Upcoming Encounters Date Type Department Care Team (Late st Contact Info) Description 05/29/2024 11:30 AM EDT Medication Management [facility] [address] [place] [id number] Jennifer Hernandez PharmD [address] [place] [address] documented as of this encounter Goals Goal Patient Goal Type Associated Problems Recent Progress Patient-Stated? Author Hemoglobin A1c < 8 Result Component 7.9( 4 2:22 PM EST) No Jennifer Hernandez PharmD Note: A1 goal of <8% (personalized based on age, hx of hypoBG) Record your blood sugar as directed Result Component On track( 023 12:34 PM EST) No Jennifer Hernandez PharmD Note: Monitor BG via CGM ensuring sensor is scanned at least once every 8 hours. Use manual SMBG as needed & as directed. documented as of this encounter Visit Diagnoses Diagnosis Actinic keratoses- Primary Actinic keratosis Seborrheic dermatitis Unspecified seborrheic dermatitis documented in this encounter Additional Health Concerns Assessment Noted Time PHQ-9 Depression Total Score: 0 05/18/19 24 11:33 AM EST documented as of this encounter Care Teams Skein Winder Relationship Specialty Start Date End Date Name, MD Luis Manuel [address] [place] [address] PCP - General Family Medicine 03/25/17 Jennifer Hernandez PharmD [address] [place] [address] Pharmacist Internal Medicine 03/17/22 documented as of this encounter
--- OUTSIDE RECORDS SUMMARY | 2024-04-10 12:34 | XMS_ITS | Encounter Summary ---
Author Organization [facility] Address [address] [place] [address] Care Team Providers Care Bituminous Paving Machine Operator Name Role Phone Name, Luis Manuel VELARDE Primary Care Provider [phone] Jennifer Hernandez PharmD Unavailable [phone] Reason for Visit * Reason Comments Med Refill Encounter Details Date Type Department Care Team ([facility] st Contact Info) Description 03/29/2024 Refill [facility] [address] [place], [place] [phone] [facility] [address] [place], [place] [phone] Anxiety disorder, unspecified type Social History Tobacco Use Types Packs/Day Years [...] AM EDT documented as of this encounter Plan of Treatment Upcoming Encounters Date Type Department Care Team (Late st Contact Info) Description 05/29/2024 11:30 AM EDT Medication Management [facility] [address] [place] [address] Jennifer Hernandez, PharmD [address] [place] [address] documented as of this encounter Goals Goal Patient Goal Type Associated Problems Recent Progress Patient-Stated? Author Hemoglobin A1c < 8 Result Component 7.9( 4 2:22 PM EST) No Jennifer Hernandez, PharmD Note: A1 goal of <8% (personalized based on age, hx of hypoBG) Record your blood sugar as directed Result Component On track( 023 12:34 PM EST) No Jennifer Hernandez, PharmD Note: Monitor BG via CGM ensuring sensor is scanned at least once every 8 hours. Use manual SMBG as needed & as directed. documented as of this encounter Visit Diagnoses Diagnosis Anxiety disorder, unspecified type documented in this encounter Additional Health Concerns Assessment Noted Time PHQ-9 Depression Total Score: 0 05/18/19 24 11:33 AM EST documented as of this encounter Care Teams Bituminous Paving Machine Operator Relationship Specialty Start Date End Date Name, MD Luis Manuel [address] [place] [address] PCP - General Family Medicine 03/25/17 Jennifer Hernandez PharmD [address] [place] [address] Pharmacist Internal Medicine 03/17/22 documented as of this encounter
--- OUTSIDE RECORDS SUMMARY | 2024-04-10 12:34 | XMS_ITS | Encounter Summary ---
Author Organization [employer] [facility] Address [address] [place] [address] Care Team Providers Care Event Coordinator Marketing And Sales Name Role Phone Name, Luis Manuel VELARDE Primary Care Provider Jennifer Hernandez PharmD Unavailable Encounter Details Date Type Department Care Team ([facility] Contact Info) Description 02/24/2022 Abstract [facility] [address] [place] [address] Name, MD Luis Manuel [address] [place] [phone] Social History Tobacco Use Types Packs/Day Years Used Date Smoking Tobacco: Never Assessed Depression Answer Date Recorded Patient Health Questionnaire-9 Score 0 02/25/2022 Depression Answer Date Recorded Patient Health Questionnaire-2 Score 0 02/25/2022 Sex and Gender Information Value Date Recorded Sex Assigned at Male 01/12/2022 10:32 AM EDT Legal Sex Male 10:32 AM EDT Gender Identity Male 01/12/2022 10:32 AM EDT Sexual Orientation Straight 01/12/2022 10 :32 AM EDT COVID-19 Exposure Response Date Recorded In the last 10 days, have yo u been in contact with someone who was confirmed or suspected to have Coronavirus/COVID-19? No / Unsure 02/25/2022 3:13 PM EST documented as of this encounter Plan of Treatment Upcoming Encounters Date Type Department Care Team (Late Contact Info) Description 05/29/2024 11:30 AM EDT Medication Management [facility] [address] [place] [address] MonikiaTiffanysa, PharmD [address] [place] [address] documented as of this encounter Visit Diagnoses Not on filedocumented in this encounter Care Teams Event Coordinator Marketing And Sales Relationship Specialty Start Date End Date Name, MD Luis Manuel [address] [place] [address] PCP - General Family Medicine 03/25/17 Jennifer Hernandez, Cornelius [address] [place] [address] Pharmacist Internal Medicine 03/17/22 documented as of this encounter
--- OUTSIDE RECORDS SUMMARY | 2024-04-10 12:34 | XMS_ITS | Encounter Summary ---
Author Organization [employer] [facility] Address [address] [facility] 7t [place] [address] Care Team Providers Care Front Counter Attendant Name Role Phone Name, Luis Manuel VELARDE Primary Care Provider [phone] Jennifer Hernandez PharmD Unavailable [phone] Encounter Details Date Type Department Care Team (Late Contact Info) Description 03/02/2022 Orders Only [facility] [address] [place] [address] Nohemy Diaz LPN Social History Tobacco Use Types Packs/Day Years Used Date Smoking Tobacco: Never Smokeless Tobacco: Never Depression Answer Date Recorded Patient Health Questionnaire-9 [...] Description 05/29/2024 11:30 AM EDT Medication Management [facility] [address] [place] [address] Jennifer Hernandez, PharmD [address] [place], [place] [phone] documented as of this encounter Visit Diagnoses Not on filedocumented in this encounter Additional Health Concerns Assessment Noted Time PHQ-9 Depression Total Score: 0 02/26/20 22 3:35 PM EST documented as of this encounter Care Teams Front Counter Attendant Relationship Specialty Start Date End Date Name, MD Luis Manuel [address] [place] [address] PCP - General Family Medicine 03/25/17 Jennifer Hernandez PharmD [address] [place] [address] Pharmacist Internal Medicine 03/17/22 documented as of this encounter
--- OUTSIDE RECORDS SUMMARY | 2024-04-10 12:34 | XMS_ITS | Referral Summary ---
Author Organization [facility] Address [address] [place] [address] Care Team Providers Care Chief Data Officer Name Role Phone Name, Luis Manuel Primary Care Provider [phone] Allergies No known active allergies Medications acetaminophen (TYLENOL) 500 mg tablet 2 Active amLODIPine (NORVASC) 10 mg tablet Take 10 mg by mouth once a day. 2 Active atorvastatin (LIPITOR) 40 mg tablet Take 40 mg by mouth once a day. 2 Active OneTouch Verio test strips TEST BLOOD SUGAR TWICE DAILY 2 Active clonazePAM (KlonoPIN) 1 mg tablet TAKE 1 TABLET BY MOUTH BEFORE FLIGHT 1 Active escitalopram (LEXAPRO) 10 mg tablet Take 10 mg by mouth once a day. 2 Active fluorouraciL (EFUDEX) 5% cream APPLY TO THE AFFECTED AREA(S) TWICE DAILY DIRECTED 1 Active Lantus U-100 Insulin 100 unit/mL solution injection INJECT 35 UNITS SUBCUTANEOUSLY EVERY EVENING 2 Active HumaLOG U-100 Insulin 100 unit/mL injection INJECT 10 UNITS SUBCUTANEOUSLY BEFORE MEALS 2 Active irbesartan (AVAPRO) 300 mg tablet Take 300 mg by mouth once a day. 2 Active metFORMIN (GLUCOPHAGE) 1,000 mg tablet TAKE 1 TABLET BY MOUTH TWICE DAILY IN THE MORNING AND IN THE EVENING WITH MEALS 2 Active omeprazole (PriLOSEC) 20 mg capsule Take 20 mg by mouth once a day. 2 Active Active Problems No known active problems Social History Tobacco Use Types Packs/Day Years Used Date Smoking Tobacco: Never Smokeless Tobacco: Never Sex and Gender Information Value Date Recorded Sex Assigned at Not on file Legal Sex Male 9:57 AM EDT Gender Identity Not on file Sexual Orientation Not on file Last Filed Vital Signs Vital Sign Reading Time Taken Comments Blood Pressure - - Pulse - - Temperature - - Respiratory Rate - - Oxygen Saturation - - Inhaled Oxygen Concentration - - Weight 79.8 kg (176 lb) 06/16/2021 10:50 AM EDT Height 165.1 cm (5' 5 ) 06/16/2021 10:50 AM EDT Body Mass Index 29.29 06/16/2021 10:50 AM EDT Plan of Treatment Not on file Insurance [facility] [address] Care Teams Chief Data Officer Relationship Specialty Start Date End Date Name, Luis Manuel [address] [place] [address] PCP - General Internal Medicine 01/17/21
--- OUTSIDE RECORDS SUMMARY | 2024-04-10 12:34 | XMS_ITS | Encounter Summary ---
Author Organization [facility] Address [address] 7[address] [place] [address] Care Team Providers Care Pig Sticker Name Role Phone Name, Luis Manuel VELARDE Primary Care Provider [phone] Jennifer Hernandez PharmD Unavailable [phone] Reason for Visit * Reason Comments Med Refill Encounter Details Date Type Department Care Team (Late Contact Info) Description 09/09/2022 Refill [facility] [address] [place] [address] Name, MD Luis Manuel [address] [place] [address] Anxiety disorder, unspecified type Social History Tobacco Use Types Packs/Day Years Used Date Smoking Tobacco: Never Passive Smoke Exposure: Never Smokeless Tobacco: Never Alcohol Use Standard Drinks/Week Comments Not Currently 0 (1 standard drink = 0.6 oz pur e alcohol) Depression Answer Date Recorded Patient Health Questionnaire-9 [...] was confirmed or suspected to have Coronavirus/COVID-19? Unable to assess 08/27/2022 9:52 AM EDT documented as of this encounter Plan of Treatment Upcoming Encounters Date Type Department Care Team (Late Contact Info) Description 05/29/2024 11:30 AM EDT Medication Management [facility] [address] [place] [address] Jennifer Hernandez PharmD [address] [place] [address] documented as of this encounter Goals Goal [...] documented as of this encounter Care Teams Pig Sticker Relationship Specialty Start Date End Date Name, MD Luis Manuel [address] [place] [address] PCP - General Family Medicine 03/25/17 Jennifer Hernandez PharmD [address] [place] [address] Pharmacist Internal Medicine 03/17/22 documented as of this encounter
--- OUTSIDE RECORDS SUMMARY | 2024-04-10 12:34 | XMS_ITS | Encounter Summary ---
Author Organization [employer] Address [address] [place] [address] Care Team Providers Care Test Development Engineer Name Role Phone Name, Luis Manuel VELARDE Primary Care Provider [phone] Jennifer Hernandez PharmD Unavailable [phone] Reason for Visit * Reason Onset Date Comments Pre Op 02/22/2024 Encounter Details Date Type Department Care Team ([facility] Contact Info) Description 02/22/2024 Telephone [facility] [address] [place], [place] [phone] Name, MD Luis Manuel [address] [place] [address] Pre Op Social History Tobacco Use Types Packs/Day Years [...] AM EDT documented as of this encounter Miscellaneous Notes * Telephone Encounter - Sayda Guzman - 02/22/2024 1:29 PM EST Pt scheduled for pre op on 03/03/24 with Mo. Appointment reminder letter mailed * Telephone Encounter - Naida Tran - 02/22/2024 10:21 AM EST Date of Surgery: 03/16/24 right eye and 03/31/24 left eye Surgical procedure being done: cataract surgery Type of anesthesia: MAC Lab needed: No EKG: No Surgeon's name: Dr. Dylan Fontaine MD Facility name: [facility] Surgeon's office number: [phone] ext [facility] Surgeon's office fax number: [phone] Contact name (person you spoke with): Maday Newman office note from surgeon requested: Yes Send Message to Sayda Guzman and Yasir Coley Requested to contact office instead of pt. documented in this encounter Plan of Treatment Upcoming Encounters Date Type Department Care Team (Late st Contact Info) Description 05/29/2024 11:30 AM EDT Medication Management [facility] [address] [place] [address] Jennifer Hernandez PharmD [address] [place] [address] documented as of this encounter Goals Goal [...] documented as of this encounter Care Teams Test Development Engineer Relationship Specialty Start Date End Date Name, MD Luis Manuel [address] [place] [id number] PCP - General Family Medicine 03/25/17 Jennifer Hernandez PharmD [address] [place] [address] Pharmacist Internal Medicine 03/17/22 documented as of this encounter
--- OUTSIDE RECORDS SUMMARY | 2024-04-10 12:34 | XMS_ITS | Clinical Summary ---
Author Organization [facility] Address [address] [place] [address] Care Team Providers Care Transition Specialist Name Role Phone Name, Luis Manuel Primary Care Provider [phone] Allergies No known active allergies Medications acetaminophen [...] 06/16/2021 10:50 AM EDT Plan of Treatment Health Maintenance Due Date Last Done Comments Hepatitis C Screening 1950 DTaP,Tdap,and Td Vaccines (1 - Tdap) 01/07/1970 Zoster Vaccines (1 of 2) 01/07/1998 Pneumococcal Vaccine: 65+ Ye ars (1 of 1 - PCV) 01/07/2013 RSV Vaccine (60+ years old a nd patients) (1 - 1-dose 75+ series) 01/07/2023 COVID-19 Vaccine ( - 2023-2 5 season) 2023 Influenza Vaccine (#1) 2023 Alcohol/Substance Use Screening 03/15/2024 Depression Screening and Follow-Up 03/15/2024 Health Care Proxy Review 03/15/2024 Social Drivers of Health Dyana ual Screening 03/15/2024 Hepatitis B Vaccines Aged Out No long er eligible based on patient's age to complete this topic Insurance [facility] MCR Care Teams Transition Specialist Relationship Specialty Start Date End Date Name, Luis Manuel [address] [place] [address] PCP - General Internal Medicine 01/17/21
--- OUTSIDE RECORDS SUMMARY | 2024-04-10 12:34 | XMS_ITS | Encounter Summary ---
Author Organization [facility] Address [address] [place] [address] Care Team Providers Care Semiconductor Development Technician Name Role Phone Name, Luis Manuel VELARDE Primary Care Provider [phone] Jennifer Hernandez PharmD Unavailable [phone] Reason for Visit * Reason Comments Med Refill Encounter Details Date Type Department Care Team ([facility] st Contact Info) Description 03/02/2022 Refill [facility] [address] [place] [address] Name, MD Luis Manuel [address] [place] [address] Social History Tobacco Use Types Packs/Day Years [...] PM EST documented as of this encounter Miscellaneous Notes * Telephone Encounter - Luis Manuel Wall MD - 03/02/2022 4:57 PM EST I ordered this already documented in this encounter Plan of Treatment Upcoming Encounters Date Type Department Care Team (Late st Contact Info) Description 05/29/2024 11:30 AM EDT Medication Management [facility] [address] [place] [address] Jennifer Hernandez PharmD [address] [place] [address] documented as of this encounter Visit Diagnoses Not on filedocumented in this encounter Additional Health Concerns Assessment Noted Time PHQ-9 Depression Total Score: 0 02/26/20 3:35 PM EST documented as of this encounter Care Teams Semiconductor Development Technician Relationship Specialty Start Date End Date Name, MD Luis Manuel [address] [place] [phone] PCP - General Family Medicine 03/25/17 Jennifer Hernandez PharmD [address] [place] [address] Pharmacist Internal Medicine 03/17/22 documented as of this encounter
--- OUTSIDE RECORDS SUMMARY | 2024-04-10 12:34 | XMS_ITS | Encounter Summary ---
Author Organization [employer] Address [address] [place] [address] Care Team Providers Care Camelid Fiber Sorter Name Role Phone Name, Luis Manuel VELARDE Primary Care Provider Jennifer Hernandez PharmD Unavailable [phone] Reason for Visit * Reason Comments Med Refill Encounter Details Date Type Department Care Team ([facility] st Contact Info) Description 12/23/2022 Refill [facility] [address] [place], [place] [phone] Name, MD Luis Manuel [address] [place] [address] Fear of flying Social History Tobacco Use Types Packs/Day Years Used Date Smoking Tobacco: Never Passive Smoke Exposure: Never Smokeless Tobacco: Never Alcohol Use Standard Drinks/Week Comments Not Currently 0 (1 standard drink = 0.6 oz pur e alcohol) Depression Answer Date Recorded Patient Health Questionnaire-9 Score 0 02/25/2022 Housing Stability Answer Date Recorded What is your housing situation today? I have antonia thornton 12/22/[address] you li ve. Do you have problems with any of the following? None of the above 12/22/2022 Food Insecurity Answer Date Recorded Within the past 12 months, y ou worried that your food would run out before you got money to buy more: Never True 12/22/2022 Within the past 12 months,th e food you bought just didn't last and you didn't have enough money to get more: Never True 12/2022 Transportation Answer Date Recorded In the past 12 months, has l ack of transportation kept you from medical appts, meetings, work or from getting things needed for daily living? No 12/22/2022 Utilities Answer Date Recorded In the past 12 months, has t he electric, gas, oil or water company threatened to shut off services in your home? No 12/22/2022 Depression Answer Date Recorded Patient Health Questionnaire-2 [...] Description 05/29/2024 11:30 AM EDT Medication Management [facility] [address] [place] [address] Jennifer Hernandez PharmD [address] [place] [address] documented as of this encounter Goals Goal [...] as of this encounter Visit Diagnoses Diagnosis Fear of flying documented in this encounter Additional Health Concerns Assessment Noted Time PHQ-9 Depression Total Score: 0 02/26/20 22 3:35 PM EST documented as of this encounter Care Teams Camelid Fiber Sorter Relationship Specialty Start Date End Date Name, MD Luis Manuel [address] [place], [place] [phone] PCP - General Family Medicine 03/25/17 Jennifer Hernandez PharmD [address] [place] [address] Pharmacist Internal Medicine 03/17/22 documented as of this encounter
--- OUTSIDE RECORDS SUMMARY | 2024-04-10 12:34 | XMS_ITS | Clinical Summary ---
Author Organization [employer] [facility] Address [address] [place] [address] Care Team Providers Care Missileman Name Role Phone Name, Luis Manuel VELARDE Primary Care Provider [phone] Jennifer Hernandez PharmD Unavailable [phone] Allergies No known active allergies Medications Dextrose, Diabetic Use, (glucose) 1 g chewable tablet use as needed for low blood sugar 03/01/20 19 Active glucose blood (OneTouch Ultra) test strip every 12 (twelve) hours. 10/09/19 22 Active Lancets (OneTouch Delica Plus [id number]) misc USE 1 TO TEST BLOOD SUGAR TWICE DAILY 10/08/19 22 Active Misc. Devices (Cervical Pillow) miscIndications :Cervical spondylosis,Chr onic neck pain Use daily at bedtime 1 each 04/29/19 23 Active Continuous Blood Gluc Sweeper Cleaner Industrial (FreeStyle Rolando 2 [place]) deviceIndicatio ns:Type 2 diabetes mellitus with other specified complication, unspecified whether exterminator helper termite insulin use ([facility]) Use as directed for CGM 1 each 05/15/19 23 Active clonazePAM (KlonoPIN) 0.5 MG tabletIndicatio ns:Fear of flying One tab as needed 1/2 hour prior to flight 4 tablet 07/04/19 23 Active atorvastatin (Lipitor) 40 MG tabletIndicatio ns:Type 2 diabetes mellitus with other specified complication, unspecified whether fci insulin use ([facility]) Take 1 tablet (40 mg) by mouth Once daily. 90 tablet 3 02/10/20 23 Active insulin glargine (Lantus SoloStar) 100 UNIT/ML penIndications: Type 2 diabetes mellitus with other specified complication, unspecified whether exterminator helper termite insulin use (CMS/[facility]) Inject 22 Units under the skin in the evening. 15 mL 1 10/26/19 24 Active Continuous Glucose Sensor (FreeStyle Rolando 2 Sensor) miscIndications :Type 2 diabetes mellitus with other specified complication, unspecified whether fci insulin use (CMS/[facility]) USE DIRECTED. CHANGE EVERY 14 DAYS 2 each 5 10/29/19 24 Active insulin lispro (HumaLOG KWIKPEN) 100 UNIT/ML injectionIndica tions:Type 2 diabetes mellitus with other specified complication, unspecified whether exterminator helper termite insulin use ([facility]) Inject 10 units subQ before breakfast, 12 units before lunch & 16 units before dinner as directed 15 mL 5 11/26/19 24 Active metFORMIN (Glucophage) 500 MG tablet Take 1 tablet (500 mg) by mouth with breakfast and with evening meal. 60 tablet 11 12/07/19 24 025 Active amLODIPine (Norvasc) 10 MG tablet TAKE 1 TABLET BY MOUTH EVERY DAY 30 tablet 5 01/05/20 24 Active irbesartan (Avapro) 300 MG tabletIndicatio ns:Essential hypertension TAKE 1 TABLET BY MOUTH EVERY DAY 90 tablet 1 02/02/20 24 Active pen needle 32G x 4 mm miscIndications :Type 2 diabetes mellitus with other specified complication, unspecified whether exterminator helper termite insulin use ([facility]) Use 4 times daily for insulin injection 100 each 11 02/15/20 24 025 Active ketorolac (Acular) 0.5 % ophthalmic solution Administer 1 drop into both eyes [address] 1 DROP IN THE AFFECTED EYE THREE TIMES DAILY. START 2 DAYS BEFORE SURGERY, CONTINUE DIRECTED 02/29/20 24 Active empagliflozin (Jardiance) 25 MGIndications:T ype 2 diabetes mellitus with other specified complication, unspecified whether fci insulin use ([facility]) Take 1 tablet (25 mg) by mouth in the morning. 30 tablet 5 03/13/20 24 Active hydrocortisone 2.5 % creamIndication s:Seborrheic dermatitis Apply topically 2 times daily. On seborrheic dermatitis on face 28 g 03/24/19 25 Active escitalopram (Lexapro) 10 MG tabletIndicatio ns:Anxiety disorder, unspecified type TAKE 1 TABLET BY MOUTH EVERY DAY 30 tablet 03/29/19 25 Active tamsulosin (Flomax) 0.4 MG 24 hr capsule Take 2 capsules (0.8 mg) by mouth Once per day. 60 capsule 2 04/05/19 25 025 Active Jardiance 25 MGIndications:T ype 2 diabetes mellitus with other specified complication, unspecified whether fci insulin use ([facility]) TAKE 1 TABLET BY MOUTH EVERY MORNING 30 tablet 5 08/30/19 24 024 Discontinued(R eorder (will not trigger notification to Pharmacy)) escitalopram (Lexapro) 10 MG tabletIndicatio ns:Anxiety disorder, unspecified type TAKE 1 TABLET BY MOUTH EVERY DAY 30 tablet 1 01/31/20 24 025 Discontinued tamsulosin (Flomax) 0.4 MG 24 hr capsule TAKE 1 CAPSULE BY MOUTH EVERY DAY 30 capsule 2 02/29/20 24 025 Discontinued(R eorder (will not trigger notification to Pharmacy)) Active Problems Problem Noted Date Diagnosed Date Acquired cataract 02/16/2024 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 We discussed the possible treatment and side effects He is recommended to cut back on caffeine Basal cell carcinoma (BCC) of skin of face 02/25 Cervical spondylosis 02/20/2022 Gastro-esophageal reflux disease with esophagiti s 02/20/2022 Stage 3b chronic kidney disease 02/20/2022 Tubular adenoma 02/20/2022 Postop check 04/04/2021 Dupuytren's contracture 04/13/2018 Food insecurity 12/20/2017 Onychomycosis 10/13/2017 Diabetic nephropathy associa santa with type 2 diabetes mellitus 06/24/2017 Essential hypertension 06/24/2017 Type 2 diabetes mellitus 06/24/2017 Anxiety disorder 02/23/2017 Hearing loss 02/23/2017 Hyperlipidemia associated wi th type 2 diabetes mellitus ([facility]) 02/23/2017 Encounters Date Type Department Care Team Description 04/05/2024 11:30 AM EST Office Visit [facility] [address] [place] [phone] Luis Manuel Wall MD Type 2 diabetes mellitus with other specified complication, unspecified whether exterminator helper termite insulin use ([facility]) (Primary Dx); Prostatism; Essential hypertension; Hyperlipidemia associated with type 2 diabetes mellitus (CMS/HCC) ([facility]); Cervical spondylosis 03/29/2024 Refill [facility] [address] [place] [address] [place], [facility] Anxiety disorder, unspecified type 03/24/2024 9:30 AM EST Office Visit [facility] [address] [place] [phone] Barbie Nova MD Actinic keratoses (Primary Dx); Seborrheic dermatitis 03/24/2024 Travel 03/03/2024 2:15 PM EST Office Visit [facility] [address] [place] [phone] Sheila Castillo FNP Type 2 diabetes mellitus with other specified complication, unspecified whether fci insulin use ([facility]) 03/03/2024 Travel 02/26/2024 Refill [facility] [address] [place] [phone] Luis Manuel Wall MD 02/22/2024 Telephone [facility] [address] [place] [phone] Luis Manuel Wall MD Pre Op 02/15/2024 Refill [facility] [address] [place], [place] [phone] Luis Manuel Wall MD Type 2 diabetes mellitus with other specified complication, unspecified whether fci insulin use ([facility]) 02/02/2024 Refill [facility] [address] [place] [address] Luis Manuel Wall MD Essential hypertension 01/29/2024 Refill [facility] [address] [place] [phone] Luis Manuel Wall MD Anxiety disorder, unspecified type from Last 3 Months Immunizations Name Administration Dates Next Due Moderna Covid-19 Vaccine 12+ 07/29/2021,03/05/20 21,08/15/2020,07/18/2020 Pneumococcal Conjugate PCV 13 04/22/2017 Pneumococcal Conjugate PCV 20 12/03/2023 Tdap 01/16/2022 Social History Tobacco Use Types Packs/Day Years Used Date Smoking Tobacco: Former Cigarettes Passive Smoke Exposure: Never Smokeless Tobacco: Never Tobacco Cessation:Counseling Given: Not Answered Alcohol Use Standard Drinks/Week Comments Not Currently [...] Orientation Straight 01/12/2022 10 :32 AM EDT Last Filed Vital Signs Vital Sign Reading Time Taken Comments Blood Pressure 105/63 04/05/2024 11:50 AM EST Pulse 119 04/05/2024 11:50 AM EST Temperature 35.6 ??C (96 ??F) 04/05/2024 11: 50 AM EST Respiratory Rate 20 04/05/2024 11:5 0 AM EST Oxygen Saturation 97% 04/05/2024 11: 50 AM EST Inhaled Oxygen Concentration - - Weight 75.7 kg (166 lb 12.8 oz) 025 11:50 AM EST Height 165.1 cm (5' 5 ) 04/05/2024 11:5 0 AM EST Body Mass Index 27.76 04/05/2024 11:50 AM EST Plan of Treatment Upcoming Encounters Date Type Department Care Team (Late st Contact Info) Description 05/29/2024 11:30 AM EDT Medication Management [facility] [address] [place], [place] [phone] Jennifer Hernandez, PharmD [address] [place], [place] [phone] Health Maintenance Due Date Last Done Comments Derm Melanoma Skin Check 1950 Hepatitis C Screening 01/07/1966 Zoster Vaccines (1 of 2) 01/07/1998 RSV Patients and Patients Aged 60 years or older (1 - 1-dose 75+ series) 01/07/2023 COVID-19 Vaccine ( season) 2023 06/01/2022, 07/29/2021, 03/05/2021, Additional history exists Influenza Vaccine (#1) 2023 Depression Screening 05/17/2024 05/18/2023, 05/18/19 24 Diabetes: Foot Exam 05/17/2024 05/18/2023, 05/18/2023, 05/18/2023, Additional history exists SDOH Screening 05/17/2024 05/18/2023 Diabetes: Hemoglobin A1C 06/01/202403/03/ 024, 11/26/2023, 08/31/2023, Additional history exists Alcohol/Substance Use Screening 08/30/2024 08/31/2023 Eye Exam 09/21/2024 09/22/2023, 09/12, 09/22/2023, Additional history exists Tobacco Screening 04/05/2025 04/05/2024 Lipid Panel 04/10/2025 04/10/2024, 0310/2023, 02/26/2022, Additional history exists DTaP/Tdap/Td Vaccines (2 - Td or Tdap) 01/17/2032 01/16/2022 Pneumococcal Vaccine: 65+ Years Completed 12/03/2023, 04/22/2017 HIB Vaccines Aged Out No longer eligi ble based on patient's age to complete this topic HPV Vaccines Aged Out No longer eligi ble based on patient's age to complete this topic Hepatitis A Vaccines Aged Out No long er eligible based on patient's age to complete this topic Hepatitis B Vaccines Aged Out No long er eligible based on patient's age to complete this topic IPV Vaccines Aged Out No longer eligi ble based on patient's age to complete this topic Meningococcal Vaccine Aged Out No [place] eligible based on patient's age to complete this topic RSV under 20 months Aged Out No longe r eligible based on patient's age to complete this topic Rotavirus Vaccines Aged Out No longer eligible based on patient's age to complete this topic Goals Goal Patient Goal Type Associated Problems Recent Progress Patient-Stated? Author Hemoglobin A1c < 8 Result Component 7.9( 4 2:22 PM EST) No Jennifer Hernandez, Cornelius Note: A1 goal of <8% (personalized based on age, hx of hypoBG) Record your blood sugar as directed Result Component On track( 023 12:34 PM EST) No Jennifer Hernandez, PharmOg Note: Monitor BG via CGM ensuring sensor is scanned at least once every 8 hours. Use manual SMBG as needed & as directed. Procedures Procedure Name Priority Date/Time Associated Diagnosis Comments ALBUMIN, RANDOM URINE W/CREATININE Routine 04/10/2024 8:10 AM EST Type 2 diabetes mellitus with other specified complication, unspecified whether exterminator helper termite insulin use ([facility]) Prostatism Essential hypertension Hyperlipidemia associated with type 2 diabetes mellitus ([facility]/HCC) ([facility]) LIPID PANEL, STANDARD Routine 04/10/2024 8:10 AM EST Type 2 diabetes mellitus with other specified complication, unspecified whether fci insulin use (CMS/HCC) Prostatism Essential hypertension Hyperlipidemia associated with type 2 diabetes mellitus (CMS/HCC) ([facility]) COMPREHENSIVE METABOLIC PANEL Routine 04/10/2024 8:10 AM EST Type 2 diabetes mellitus with other specified complication, unspecified whether exterminator helper termite insulin use (CMS/HCC) Prostatism Essential hypertension Hyperlipidemia associated with type 2 diabetes mellitus (CMS/HCC) ([facility]/HCC) CBC WITH AUTO DIFFERENTIAL Routine 04/10/2024 8:10 AM EST Type 2 diabetes mellitus with other specified complication, unspecified whether fci insulin use (CMS/HCC) Prostatism Essential hypertension Hyperlipidemia associated with type 2 diabetes mellitus (CMS/HCC) ([facility]) POCT GLUCOSE Routine 04/05/2024 11:54 AM EST Type 2 diabetes mellitus with other specified complication, unspecified whether exterminator helper termite insulin use ([facility]) POCT GLYCATED HEMOGLOBIN, TOTAL Routine 03/03/2024 2:22 PM EST Type 2 diabetes mellitus with other specified complication, unspecified whether fci insulin use ([facility]) POCT GLUCOSE Routine 03/03/2024 2:20 PM EST Type 2 diabetes mellitus with other specified complication, unspecified whether fci insulin use ([facility]) from Last 3 Months Results * (ABNORMAL) Albumin, Random Urine W/Creatinine (04/10/2024 8:10 AM EST) Creatinine, Urine 77.62 mg/dL [facility] Microalbumin Urine 198.0 mg/L [facility] Microalbum Creatinine Ratio Ur 255.0(H) <30 ug/mg cr [facility] Comment:Albumin/Creatinine R atio Reference Ranges: Normal: < 30 ug/mg creatinine Microalbuminuria: 30 - 300 ug/mg creatinineClinical Albuminuria: > 300 ug/mg creatinine Urine (Urine, Random) 04/10/2024 8:10 AM EST 04/10/2024 11:21 AM EST us Luis Manuel Name LAB URINE ORDERABLES Final Resul t [facility] [address] [place] [address] [phone] * (ABNORMAL) CBC auto differential (04/10/2024 8:10 AM EST) White Blood Count 7.5 4.8 - 10.8 X10*3/uL [facility] Red Blood Count 4.68 4.60 - 5.80 X10*6/uL [facility] Hemoglobin 14.4 14.0 - 18.0 g/dl [facility] Hematocrit 42.9 42.0 - 52.0 % [facility] Mean Corpuscular Volume 91.7 80.0 - 98.0 fL [facility] Mean Corpuscular Hemoglobin 30.8 27.0 - 33.0 pg [facility] Mean Corpuscular HGB Conc 33.6 31.0 - 36.0 g/dl [facility] Red Cell Distribution Width 12.6 11.0 - 16.0 % [facility] Platelet Count 366 160 - 400 X10*3/uL [facility] Mean Platelet Volume 10.0 9.4 - 12.4 fL [facility] Neutrophils Percent Auto 69.1 45 - 73 % [facility] Imm Gran Pct Auto 0.5(H) 0.0 - 0.4 % [facility] Lymphocytes Percent Auto 17.2(L) 20 - 40 % [facility] Monocytes Percent Auto 7.9 2 - 11 % [facility] Eosinophils Percent Auto 4.4(H) 0 - 4 % [facility] Basophils Percent Auto 0.9 0 - 2 % [facility] NRBC Pct Auto 0.0 0.0 - 0.2 /100WBC [facility] Neutrophils Absolute Auto 5.2 2.0 - 8.3 x10*3/uL [facility] Imm Gran Abs Auto 0.04(H) 0.00 - 0.03 X10*3/uL [facility] Lymphocytes Absolute Auto 1.3 1.2 - 4.9 X10*3/uL [facility] Monocytes Absolute Auto 0.6 0.1 - 1.2 X10*3/uL [facility] Eosinophils Absolute Auto 0.3 0.0 - 0.4 X10*3/uL [facility] Basophils Absolute Auto 0.1 0.0 - 0.2 X10*3/uL [facility] NRBC Abs Auto 0.000 0.0 - 0.012 X10*3/uL [facility] Blood Venous blood specimen / Unknown 04/10/2024 8:10 AM EST 04/10/2024 11:25 AM EST us Luis Manuel Name LAB BLOOD ORDERABLES Final Resul t [facility] [address] [place] [address] [phone] * (ABNORMAL) Lipid Panel, Standard (04/10/2024 8:10 AM EST) Triglycerides 156(H) <150 mg/dL [facility] Comment:Desirable Triglyceri de: less than 150 mg/dLBorderline High Triglyceride 150-199 mg/dLHigh Triglyceride: 200-499 mg/dLVery High Triglyceride: greater than or equal to 5OO mg/dL Cholesterol 117 <200 mg/dL [facility] Comment:Desirable Cholestero l: less than 200 mg/dLBorderline High Cholesterol: 200-239 mg/dLHigh Cholesterol: greater than 239 mg/dL LDL Cholesterol Calculated 49 <100 mg/dL [facility] Comment:Desirable LDL: less than 100 mg/dLNear Optimal/Above Optimal LDL: 110- 129 mg/dLBorderline High LDL: 130-159 mg/dLHigh LDL: 160-189 mg/dLVery High LDL: greater than or equal to 190 mg/dL HDL Cholesterol 37(L) >40 mg/dL [facility] Comment:Desirable HDL: great er than 40 mg/dL Note: This HDL assay may give artificially low results in patients with liver disease. Blood Venous blood specimen / Unknown 04/10/2024 8:10 AM EST 04/10/2024 11:25 AM EST us Luis Manuel Name MD LAB BLOOD ORDERABLES Final Resul t [facility] [address] [place] [address] [phone] * (ABNORMAL) Comprehensive Metabolic Panel (04/10/2024 8:10 AM EST) Sodium 139 135 - 145 mmol/L [facility] Potassium 4.6 3.3 - 5.1 mmol/L [facility] Chloride 105 96 - 108 mmol/L [facility] Carbon Dioxide 27 22 - 29 mmol/L [facility] Anion Gap 12 12 - 20 [facility] Urea Nitrogen (BUN) 23(H) 9 - 16 mg/dL [facility] Creatinine, Serum 1.53(H) 0.5 - 1.4 mg/dL [facility] Estimated Glomerular Filt Rate 44 [facility] Comment:Chronic Kidney Disea se: Estimated GFR < 60 mL/min/[id number] Kidney Disease: Estimated GFR < 15 mL/min/1.73m2 Glucose 169(H) 60 - 115 mg/dL [facility] Calcium 9.0 8.4 - 10.2 mg/dL [facility] Bilirubin, Total 0.5 0.0 - 1.0 mg/dL [facility] Aspartate Amino Transferase 27 5 - 37 U/L [facility] Alanine Aminotransferase 27 0 - 40 U/L [facility] Total Protein 7.7 6.5 - 8.0 g/dL [facility] Albumin Level 4.0 3.5 - 5.0 g/dL [facility] Alkaline Phosphatase 74 39 - 117 U/L [facility] Blood Venous blood specimen / Unknown 04/10/2024 8:10 AM EST 04/10/2024 11:25 AM EST Luis Manuel Wall MD LAB BLOOD ORDERABLES Final Resul t [facility] [address], [place] [phone] * (ABNORMAL) POCT Glucose (04/05/2024 11:54 AM EST) Only the most recent of2 resultswithin the time period is included. Glucose Blood, POC 387(A) 60 - 200 mg/dL [employer] Lot # [id number] Lot# Expiration Date 53,025 Blood Capillary blood specimen / Unknown 04/05/2024 11:54 AM EST Luis Manuel Wall MD POINT OF CARE TEST ENTER/EDIT OR DERABLES Final Result * (ABNORMAL) POCT HGB A1C (03/03/2024 2:22 PM EST) Hemoglobin A1C 7.9(A) 4.0 - 6.0 % [employer] Lot # [id number] Lot# Expiration Date 80,826 Blood 03/03/2024 2:22 PM EST Sheila Castillo FLIGHT OPERATIONS COORDINATOR POINT OF CARE TEST ENTER/EDIT ORDERABLES Final Result from Last 3 Months Insurance [facility] DUAL COMPLETE [facility] STANDARD Care Teams [place]man Relationship Specialty Start Date End Date Name, MD Luis Manuel [address] [place] [address] PCP - General Family Medicine 03/25/17 Jennifer Hernandez PharmD [address] [place] [address] Pharmacist Internal Medicine 03/17/22
--- OUTSIDE RECORDS SUMMARY | 2024-04-10 12:34 | XMS_ITS | Encounter Summary ---
Author Organization [employer] [facility] Address [address] [place] [address] Care Team Providers Care Senior Business Intelligence Analyst Name Role Phone Name, Luis Manuel VELARDE Primary Care Provider [phone] Jennifer Hernandez PharmD Unavailable [phone] Encounter Details Date Type Department Care Team (Latest Contact Info) Description 03/24/2024 Travel Social History Tobacco Use Types Packs/Day Years [...] Description 05/29/2024 11:30 AM EDT Medication Management [facility] [address] [place] [address] Jennifer Hernandez PharmD [address] [place] [address] documented as of this encounter Goals Goal [...] documented as of this encounter Care Teams Senior Business Intelligence Analyst Relationship Specialty Start Date End Date Name, MD Luis Manuel [address] [place] [address] PCP - General Family Medicine 03/25/17 Jennifer Hernandez PharmD [address] [place] [address] Pharmacist Internal Medicine 03/17/22 documented as of this encounter
--- OUTSIDE RECORDS SUMMARY | 2024-04-10 12:34 | XMS_ITS | Encounter Summary ---
Author Organization [employer] Address [address] [place] [address] Care Team Providers Care Stripper Apprentice Name Role Phone Name, Luis Manuel VELARDE Primary Care Provider [phone] Jennifer Hernandez PharmD Unavailable [phone] Reason for Visit * Reason Comments Follow-up Encounter Details Date Type Department Care Team ([facility] st Contact Info) Description 04/05/2024 11:30 AM EST Office Visit [facility] [address] [place], [place] [phone] Name, MD Luis Manuel [address] [place] [address] Type 2 diabetes mellitus with other specified complication, unspecified whether polymerization oven tender insulin use (CMS/HCC) (Primary Dx); Prostatism; Essential hypertension; Hyperlipidemia associated with type 2 diabetes mellitus (CMS/HCC) (CMS/HCC); Cervical spondylosis Social History Tobacco Use Types Packs/Day Years [...] Mass Index 27.76 04/05/2024 11:50 AM EST documented in this encounter Progress Notes * Luis Manuel Wall MD - 04/05/2024 11:30 AM EST Subjective Patient ID: Dg Chand is a 74 y.o. male who presents for Follow-up. Patient comes for a follow-up visit. He did not bring his glucose meter. His blood pressure is good. His blood sugar control is acceptable based on his most recent A1c. He is using his medications regularly but continues to have a liberal diet and he is again recommended to avoid sugar in his diet.He has chronic neck pain related to DJD. We discussed the results of his most recent cervical spinex-ray. I would only suggest acetaminophen given his history of CKD. He does not want to do physicaltherapy. I suggested he comes for acupuncture for his chronic neck pain. He describes significant improvement of symptoms of prostatism since he started on Flomax. He is still waking up to urinate at least twice a night. I suggested to double dose of Flomax and he agreed. Review of Systems Constitutional: Negative for chills, fatigue and fever. HENT: Negative for sore throat. Respiratory: Negative for cough, chest tightness and shortness of breath. Cardiovascular: Negative for chest pain, palpitations and leg swelling. Gastrointestinal: Negative for abdominal pain and blood in stool. Musculoskeletal: Positive for neck pain. He has occasional radiation of the pain to the right shoulder and arm Visit Vitals BP 105/63 (BP Location: Right arm, Patient Position: Sitting, BP Cuff Size: Adult) Pulse (!) 119 Temp 96 ??F (35.6 ??C) (Temporal) Resp 20 Ht 5' 5 (1.651 m) Wt 166 lb 12.8 oz (75.7 kg) SpO2 97% BMI 27.76 kg/m?? Smoking Status Former BSA 1.86 m?? Objective Physical Exam Constitutional: Appearance: Normal appearance. Cardiovascular: Rate and Rhythm: Normal rate and regular rhythm. Heart sounds: No murmur heard. Comments: Repeat HR in the 90s and regular Pulmonary: Effort: Pulmonary effort is normal. No respiratory distress. Breath sounds: No wheezing, rhonchi or rales. Abdominal: Palpations: Abdomen is soft. Tenderness: There is no abdominal tenderness. Musculoskeletal: Right lower leg: No edema. Left lower leg: No edema. Neurological: Mental Status: He is alert. Lab Results Component Value Date HGBA1C 7.9 (A) 03/03/2024 HGBA1C 7.8 (A) 11/26/2023 HGBA1C 8.0 (A) 08/31/2023 HGBA1C 7.8 (A) 05/14/2023 HGBA1C 7.6 (A) 02/09/2023 HGBA1C 7.9 (A) 11/09/2022 HGBA1C 7.9 (H) 08/06/2022 HGBA1C 8.0 (H) 05/14/2022 HGBA1C 7.5 (H) 02/26/2022 HGBA1C 8.0 (A) 01/16/2022 HGBA1C 7.7 (H) 09/09/2021 HGBA1C 8.6 (H) 04/11/2020 CREATININE 1.52 (H) 12/03/2023 CREATININE 1.28 05/21/2023 CREATININE 1.41 (H) 05/14/2022 CREATININE 1.36 (H) 02/26/2022 CREATININE 1.31 02/27/2021 CREATININE 1.31 02/27/2021 CREATININE 1.31 02/27/2021 CREATININE 1.35 02/12/2020 CREATININE 1.35 02/12/2020 CREATININE 1.35 02/12/2020 CREATININE 1.36 01/10/2020 Current Outpatient Medications on File Prior to Visit Medication Sig Dispense Refill amLODIPine (Norvasc) 10 MG tablet TAKE 1 TABLET BY MOUTH EVERY DAY 30 tablet 5 atorvastatin (Lipitor) 40 MG tablet Take 1 tablet (40 mg) by mouth Once daily. 90 tablet 3 clonazePAM (KlonoPIN) 0.5 MG tablet One tab as needed 1/2 hour prior to flight 4 tablet 0 Continuous Blood Gluc Quality Head (FreeStyle Rolando 2 [place]) device Use as directed for CGM 1 each 0 Continuous Glucose Sensor (FreeStyle Rolando 2 Sensor) [facility] USE DIRECTED. CHANGE EVERY 14 DAYS 2 each 5 Dextrose, Diabetic Use, (glucose) 1 g chewable tablet use as needed for low blood sugar empagliflozin (Jardiance) 25 MG Take 1 tablet (25 mg) by mouth in the morning. 30 tablet 5 escitalopram (Lexapro) 10 MG tablet TAKE 1 TABLET BY MOUTH EVERY DAY 30 tablet 0 glucose blood (OneTouch Ultra) test strip every 12 (twelve) hours. hydrocortisone 2.5 % cream Apply topically 2 times daily. On seborrheic dermatitis on face 28 g 0 insulin glargine (Lantus SoloStar) 100 UNIT/ML pen Inject 22 Units under the skin in the evening. 15 mL 1 insulin lispro (HumaLOG KWIKPEN) 100 UNIT/ML injection Inject 10 units subQ before breakfast, 12 units before lunch & 16 units before dinner as directed 15 mL 5 irbesartan (Avapro) 300 MG tablet TAKE 1 TABLET BY MOUTH EVERY DAY 90 tablet 1 ketorolac (Acular) 0.5 % ophthalmic solution Administer 1 drop into both eyes [address] 1 DROP IN THE AFFECTED EYE THREE TIMES DAILY. START 2 DAYS BEFORE SURGERY, CONTINUE DIRECTED Lancets (OneTouch Delica Plus [id number]) misc USE 1 TO TEST BLOOD SUGAR TWICE DAILY metFORMIN (Glucophage) 500 MG tablet Take 1 tablet (500 mg) by mouth with breakfast and with evening meal. 60 tablet 11 Misc. Devices (Cervical Pillow) misc Use daily at bedtime 1 each 0 pen needle 32G x 4 mm misc Use 4 times daily for insulin injection 100 each 11 [DISCONTINUED] tamsulosin (Flomax) 0.4 MG 24 hr capsule TAKE 1 CAPSULE BY MOUTH EVERY DAY 30 capsule 2 No current facility-administered medications on file prior to visit. Assessment/Plan Diagnoses and all orders for this visit: Type 2 diabetes mellitus with other specified complication, unspecified whether detention insulin use ([facility]) Comments: Continue current meds. Avoid sweets. Check fasting blood work. Walk daily Orders: - POCT Glucose - CBC auto differential; Future - Comprehensive Metabolic Panel; Future - Lipid Panel, Standard; Future - Albumin, Random Urine W/Creatinine; Future Prostatism Comments: I will double his Flomax Orders: - CBC auto differential; Future - Comprehensive Metabolic Panel; Future - Lipid Panel, Standard; Future - Albumin, Random Urine W/Creatinine; Future Essential hypertension Comments: Continue current meds and check fasting blood work Orders: - CBC auto differential; Future - Comprehensive Metabolic Panel; Future - Lipid Panel, Standard; Future - Albumin, Random Urine W/Creatinine; Future Hyperlipidemia associated with type 2 diabetes mellitus ([facility]) ([facility]) Comments: Continue current meds and check fasting blood work Orders: - CBC auto differential; Future - Comprehensive Metabolic Panel; Future - Lipid Panel, Standard; Future - Albumin, Random Urine W/Creatinine; Future Cervical spondylosis Comments: I recommended to go for acupuncture. Continue as needed Tylenol. Avoid NSAIDs. Other orders - tamsulosin (Flomax) 0.4 MG 24 hr capsule; Take 2 capsules (0.8 mg) by mouth Once per day. documented in this encounter Plan of Treatment Upcoming Encounters Date Type Department Care Team (Late st Contact Info) Description 05/29/2024 11:30 AM EDT Medication Management [facility] [address] [place] [address] Jennifer Hernandez PharmD [address] [place] [address] documented as of this encounter Goals Goal [...] as directed. documented as of this encounter Procedures Procedure Name Priority Date/Time Associated Diagnosis Comments ALBUMIN, RANDOM URINE W/CREATININE Routine 04/10/2024 8:10 AM EST Type 2 diabetes mellitus with other specified complication, unspecified whether detention insulin use ([facility]) Prostatism Essential hypertension Hyperlipidemia associated with type 2 diabetes mellitus (CMS/HCC) ([facility]) CBC WITH AUTO DIFFERENTIAL Routine 04/10/2024 8:10 AM EST Type 2 diabetes mellitus with other specified complication, unspecified whether polymerization oven tender insulin use ([facility]) Prostatism Essential hypertension Hyperlipidemia associated with type 2 diabetes mellitus (CMS/HCC) ([facility]) LIPID PANEL, STANDARD Routine 04/10/2024 8:10 AM EST Type 2 diabetes mellitus with other specified complication, unspecified whether detention insulin use ([facility]) Prostatism Essential hypertension Hyperlipidemia associated with type 2 diabetes mellitus (CMS/HCC) ([facility]) COMPREHENSIVE METABOLIC PANEL Routine 04/10/2024 8:10 AM EST Type 2 diabetes mellitus with other specified complication, unspecified whether polymerization oven tender insulin use ([facility]) Prostatism Essential hypertension Hyperlipidemia associated with type 2 diabetes mellitus ([facility]) ([facility]) POCT GLUCOSE Routine 04/05/2024 11:54 AM EST Type 2 diabetes mellitus with other specified complication, unspecified whether polymerization oven tender insulin use ([facility]) documented in this encounter Results * (ABNORMAL) Albumin, Random Urine W/Creatinine (04/10/2024 8:10 AM EST) Creatinine, Urine 77.62 mg/dL [facility] Microalbumin Urine 198.0 mg/L [facility] Microalbum Creatinine Ratio Ur 255.0(H) <30 ug/mg cr [facility] Comment:Albumin/Creatinine R atio Reference Ranges: Normal: < 30 ug/mg creatinine Microalbuminuria: 30 - 300 ug/mg creatinineClinical Albuminuria: > 300 ug/mg creatinine Urine (Urine, Random) 04/10/2024 8:10 AM EST 04/10/2024 11:21 AM EST us Luis Manuel Name MD LAB URINE ORDERABLES Final Resul t [facility] [address] [place] [address] [phone] * (ABNORMAL) Lipid Panel, Standard (04/10/2024 8:10 AM EST) Triglycerides 156(H) <150 mg/dL [facility] Comment:Desirable Triglyceri de: less than 150 mg/dLBorderline High Triglyceride 150-199 mg/dLHigh Triglyceride: 200-499 mg/dLVery High Triglyceride: greater than or equal to 5OO mg/dL Cholesterol 117 <200 mg/dL [facility] Comment:Desirable Cholestero l: less than 200 mg/dLBorderline High Cholesterol: 200-239 mg/dLHigh Cholesterol: greater than 239 mg/dL LDL Cholesterol Calculated 49 <100 mg/dL [facility] Comment:Desirable LDL: less than 100 mg/dLNear Optimal/Above Optimal LDL: 110- 129 mg/dLBorderline High LDL: 130-159 mg/dLHigh LDL: 160-189 mg/dLVery High LDL: greater than or equal to 190 mg/dL HDL Cholesterol 37(L) >40 mg/dL [facility] Comment:Desirable HDL: great er than 40 mg/dL Note: This HDL assay may give artificially low results in patients with liver disease. Blood Venous blood specimen / Unknown 04/10/2024 8:10 AM EST 04/10/2024 11:25 AM EST us Luis Manuel Name LAB BLOOD ORDERABLES Final Resul t [facility] [address] [place] [phone] * (ABNORMAL) Comprehensive Metabolic Panel (04/10/2024 8:10 AM EST) Sodium 139 135 - 145 mmol/L [facility] Potassium 4.6 3.3 - 5.1 mmol/L [facility] Chloride 105 96 - 108 mmol/L [facility] Carbon Dioxide 27 22 - 29 mmol/L [facility] Anion Gap 12 12 - 20 [facility] Urea Nitrogen (BUN) 23(H) 9 - 16 mg/dL [facility] Creatinine, Serum 1.53(H) 0.5 - 1.4 mg/dL [facility] Estimated Glomerular Filt Rate 44 [facility] Comment:Chronic Kidney Disea se: Estimated GFR < 60 mL/min/[id number] Kidney Disease: Estimated GFR < 15 mL/min/1.73m2 Glucose 169(H) 60 - 115 mg/dL [facility] Calcium 9.0 8.4 - 10.2 mg/dL [facility] Bilirubin, Total 0.5 0.0 - 1.0 mg/dL [facility] Aspartate Amino Transferase 27 5 - 37 U/L [facility] Alanine Aminotransferase 27 0 - 40 U/L [facility] Total Protein 7.7 6.5 - 8.0 g/dL [facility] Albumin Level 4.0 3.5 - 5.0 g/dL [facility] Alkaline Phosphatase 74 39 - 117 U/L [facility] Blood Venous blood specimen / Unknown 04/10/2024 8:10 AM EST 04/10/2024 11:25 AM EST us Luis Manuel Name MD LAB BLOOD ORDERABLES Final Resul t [facility] [address] [place] [phone] * (ABNORMAL) CBC auto differential (04/10/2024 8:10 AM EST) White Blood Count 7.5 4.8 - 10.8 X10*3/uL [facility] Red Blood Count 4.68 4.60 - 5.80 X10*6/uL [facility] Hemoglobin 14.4 14.0 - 18.0 g/dl [facility] Hematocrit 42.9 42.0 - 52.0 % [facility] Mean Corpuscular Volume 91.7 80.0 - 98.0 fL [facility] Mean Corpuscular Hemoglobin 30.8 27.0 - 33.0 pg [facility] Mean Corpuscular HGB Conc 33.6 31.0 - 36.0 g/dl [facility] Red Cell Distribution Width 12.6 11.0 - 16.0 % [facility] Platelet Count 366 160 - 400 X10*3/uL [facility] Mean Platelet Volume 10.0 9.4 - 12.4 fL [facility] Neutrophils Percent Auto 69.1 45 - 73 % [facility] Imm Gran Pct Auto 0.5(H) 0.0 - 0.4 % [facility] Lymphocytes Percent Auto 17.2(L) 20 - 40 % [facility] Monocytes Percent Auto 7.9 2 - 11 % [facility] Eosinophils Percent Auto 4.4(H) 0 - 4 % [facility] Basophils Percent Auto 0.9 0 - 2 % [facility] NRBC Pct Auto 0.0 0.0 - 0.2 /100WBC [facility] Neutrophils Absolute Auto 5.2 2.0 - 8.3 x10*3/uL [facility] Imm Gran Abs Auto 0.04(H) 0.00 - 0.03 X10*3/uL [facility] Lymphocytes Absolute Auto 1.3 1.2 - 4.9 X10*3/uL [facility] Monocytes Absolute Auto 0.6 0.1 - 1.2 X10*3/uL [facility] Eosinophils Absolute Auto 0.3 0.0 - 0.4 X10*3/uL [facility] Basophils Absolute Auto 0.1 0.0 - 0.2 X10*3/uL [facility] NRBC Abs Auto 0.000 0.0 - 0.012 X10*3/uL [facility] Blood Venous blood specimen / Unknown 04/10/2024 8:10 AM EST 04/10/2024 11:25 AM EST us Luis Manuel Wall MD LAB BLOOD ORDERABLES Final Resul t [facility] [address] [place] [phone] * (ABNORMAL) POCT Glucose (04/05/2024 11:54 AM EST) [facility] Signature Glucose Blood, POC 387(A) 60 - 200 mg/dL [employer] Lot # [id number] Lot# Expiration Date Blood Capillary blood specimen / Unknown 04/05/2024 11:54 AM EST us Luis Manuel Wall MD POINT OF CARE TEST ENTER/EDIT OR DERABLES Final Result documented in this encounter Visit Diagnoses Diagnosis Type 2 diabetes mellitus with other specified complication, unspecified whether polymerization oven tender insulin use ([facility])- Primary Prostatism Unspecified hyperplasia of prostate without urinary obstruction and other lower urinary tract symptoms (LUTS) Essential hypertension Unspecified essential hypertension Hyperlipidemia associated with type 2 diabetes mellitus ([facility]) ([facility]) Cervical spondylosis Cervical spondylosis without myelopathy documented in this encounter Additional Health Concerns Assessment Noted Time PHQ-9 Depression Total Score: 0 05/18/19 24 11:33 AM EST documented as of this encounter Care Teams Stripper Apprentice Relationship Specialty Start Date End Date Name, MD Luis Manuel [address] [place] [address] PCP - General Family Medicine 03/25/17 Jennifer Hernandez PharmD [address] [place] [address] Pharmacist Internal Medicine 03/17/22 documented as of this encounter
== END 2024-04-10 08:08 | disposition home or self-care (01) ==
LOC: HO.HHCL 08:07
PROVIDERS: Visit Provider Internal Medicine Geriatric Medicine
DX: E11.69 Type 2 diabetes mellitus with other specified complication (principal); N40.0 Benign prostatic hyperplasia without lower urinary tract symptoms; I10 Essential (primary) hypertension; E78.5 Hyperlipidemia, unspecified
CPT/HCPCS: 36415; 80053; 80061; 82043; 82570; 85025

== ENCOUNTER 2024-10-23 10:55 | Outpatient (AMB) | payer MEDICARE, MEDICAID, SELFPAY ==
--- NOTE | 2024-10-23 11:02 | MHC.OFFVIS ---
Intake Visit Reasons: BPH with nocturia Intake Note: New patient presents today for initial visit for BPH w/nocturia Urology Medication:None Blood Thinner:Aspirin Antibiotic Allergies:None PVR:12ml Hospital Nurse Liaison Name: Magdaleno Spicer Allergies No Known Allergies (No Known Allergies*) Allergy (Verified 10/23/24 11:56) Medication List - Last Reconciled 10/23/24 by KAREEM JerezP- atorvastatin 40 mg PO DAILY bisacodyl (Dulcolax (bisacodyl)) 5 mg PO BEDTIME escitalopram oxalate 10 mg PO DAILY hydrochlorothiazide 25 mg PO DAILY insulin admin supplies (InPen (for Humalog) subcutaneous) As directed insulin glargine (Lantus U-100 Insulin) 20 units subcut QPM irbesartan 300 mg PO DAILY ketotifen fumarate 0.025%(0.035%) (Allergy Eye (ketotifen)) 1 drp ophthalmic (eye) BID metformin 1,000 mg PO DAILY tizanidine 2 mg PO Q8H PRN 30 days HPI Comments Details: Dg is a 74-year-old Albanian-speaking male patient of Dr. Wall. He has a past medical history of hyperlipidemia, diabetes, chronic kidney disease, anxiety, and hypertension. He presents to the office today as a new patient for ongoing lower urinary tract symptoms he is experiencing as well as Peyronie's disease (left dorsal). In discussion with the patient today he reports previously following up here many years ago for Peyronie's disease however never underwent treatment as planned. He discusses more recently over the last 1-2 years he has been experiencing intermittent episodes of nocturia, urinary hesitancy, and weak urinary stream. He reports having followed up with his PCP at which time recommendations were made for urology referral for further assessment evaluation. We did discussed at length potential causes of lower urinary tract symptoms as well as Peyronie's disease. We discussed further treatment options of both these urological conditions as well as risks and benefits of these treatment options. All questions were answered to the best of my ability. He denies urinary urgency, urinary frequency, incontinence,, hematuria, dysuria, foul smelling urine, flank pain, fever, and or chills. In review of patient's chart it appears PSA 12/06 2.9 Information provided regarding Peyronie's disease. We discussed obtaining retroperitoneal ultrasound and PSA for further assessment evaluation. XIMENA was offered however deferred. We discussed importance of management and diabetes for improvement in urological conditions as well as overall health and well-being. In office urinalysis results reviewed with the patient today. PVR 12 mL. He otherwise offers no other issues or concerns at this time. FORMERLY [facility], [facility] Medical History Hyperlipidemia S/P angiogram of extremity (~12/2019) Diabetic autonomic neuropathy Chronic kidney disease Hyperglycemia Anxiety Diabetes Hypertension Surgical History History of esophagogastroduodenoscopy (EGD) Hx of colonoscopy Hx of hand surgery Family History Father No problems noted. Mother No problems noted. Social History Alcohol intake: current Alcohol intake frequency: does not drink Patient Tobacco Use Status: Former Tobacco user Years Smoked: 35 Review of Systems Const All systems reviewed & are unremarkable except as noted in HPI and below Physical Exam Const General: cooperative, healthy appearing, comfortable, no acute distress, well developed, alert and awake Orientation/consciousness: patient oriented x3 Limitations: language barrier HEENT Head: Yes normal to inspection, Yes normocephalic and Yes atraumatic Ears: hearing grossly normal bilaterally Eyes General: appearance normal, both eyes and all related structures Neck Neck: Yes normal visual inspection and Yes trachea midline Chest Chest palpation & inspection: normal inspection of the chest Resp Effort & Inspection: normal respiratory effort and able to speak in complete sentences Cardio Rate: regular rate GI Inspection: Yes normal to inspection General: Yes no CVA tenderness Back/Spine/Pelvis Back: no CVA tenderness Skin General skin exam: no rashes or lesions noted Neuro General: patient oriented x3 Extrem General: Yes normal to inspection Psych Appearance: grossly normal and well kempt Mental Status: mental status grossly normal Speech and movement: Normal speech and movement present and Clear speech present Affect: normal affect Attitude: cooperative Thought process: Normal thought process present Thought content: Normal thought content present Insight: Fair insight present (Psych) Judgement: Fair judgement present (Psych) Office Procedures Post Void Residual Post Residual Void Post Void Residual (PVR): 12 [id number]-[id number] Void Residual by ultrasound Assessment & Plan Assessment & Plan (1) Nocturia: Code(s): R35.1 - Nocturia Category: Medical (2) History of urinary hesitancy: Code(s): Z87.898 - Personal history of other specified conditions Category: Medical (3) Peyronie's disease: Comment: Medications for 6 months Code(s): N48.6 - Induration penis plastica Category: Medical (4) BPH (benign prostatic hyperplasia): Code(s): N40.0 - Benign prostatic hyperplasia without lower urinary tract symptoms Category: Medical Plan In office urinalysis results reviewed with the patient today; as noted above. PVR 12 mL. We discussed potential causes of lower urinary tract symptoms patient is experiencing as well as further treatment options and risks and benefits of these treatment options. We discussed Peyronie's disease at length; information provided We discussed the importance of management and diabetes for improvement lower urinary tract symptoms as well as overall health and well-being. We discussed limiting fluids 2-3 hours prior to bed to decrease episodes of nocturia. Will obtain PSA. Will obtain retroperitoneal ultrasound for further assessment evaluation. All questions were answered. Follow-up in 1-3 months with imaging and labs; or sooner with any issues, concerns, or questions. Orders: Orders US retroperitoneal comp Today R35.1 - Nocturia Prostate Specific Antigen Today N40.0 - Benign prostatic hyperplasia without lower urinary tract symptoms AMB Urinalysis Automated Today N40.0 - Benign prostatic hyperplasia without lower urinary tract symptoms, R35.1 - Nocturia, Z87.898 - Personal history of other specified conditions AMB Post Void Residual by ultrasound Today N40.0 - Benign prostatic hyperplasia without lower urinary tract symptoms, R35.1 - Nocturia, Z87.898 - Personal history of other specified conditions Hemoglobin A1c Today E11.9 - Type 2 diabetes mellitus without complications Medications: Discontinued vitamin E (dl, acetate) Discontinued Reason: Patient no longer taking 450 mg PO DAILY 90 caps 1RF N48.6 - Induration penis plastica pentoxifylline ER administer with meals Discontinued Reason: Patient Refused 400 mg PO BID 90 days 180 tabs 1RF Patient Instructions: The patient had an opportunity to ask questions regarding the treatment plan. All questions were answered. Physical exam, labs, and imaging were discussed and reviewed in detail. As well as risks, benefits, and discussion of treatment choices. No major barriers to understanding were identified. The patient expressed understanding and agreement with the above treatment plan. The patient was made aware they should contact our office by phone for worsening of their current condition, the appearance of new symptoms, or with any questions or concerns. Compliance is encouraged with any medications and follow up testing that is ordered. It is a privilege to be allowed the opportunity to participate in? your urological care.? Again, if you have any questions or concerns If you have any questions or concerns please do not hesitate to contact me. The office is [phone]. This note is constructed using voice recognition software. While every effort has been made to ensure accuracy forensic artist errors may have been included. Yours sincerely, LAMINE Jerez Coding Level of Care Code New Pt Level 4 (62615) Diagnoses Nocturia R35.1 History of urinary hesitancy Z87.898 Peyronie's disease N48.6 BPH (benign prostatic hyperplasia) N40.0 CPT Codes Post Residual Void - PVR CPT Code: 91055-Mfqu Void Residual by ultrasound ([id number]) Time Spent (min) 40
--- OUTSIDE RECORDS SUMMARY | 2024-10-23 11:38 | XMS_ITS | Clinical Summary ---
Author Organization [facility] Address [address] [place] [address] Care Team Providers Care Integration Lead Name Role Phone Name, Luis Manuel Primary Care Provider Allergies No known active allergies Medications acetaminophen [...] Plan of Treatment Not on file Insurance [facility] MCR Care Teams Integration Lead Relationship Specialty Start Date End Date Name, Luis Manuel [address] [place] [address] PCP - General Internal Medicine 01/17/21
--- OUTSIDE RECORDS SUMMARY | 2024-10-23 11:38 | XMS_ITS | Encounter Summary ---
Author Organization [facility] Address [address] [place] [address] Care Team Providers Care Route Supervisor Name Role Phone Name, Luis Manuel VELARDE Primary Care Provider [phone] Jennifer Hernandez PharmD Unavailable [phone] Encounter Details Date Type Department Care Team ([facility] Contact Info) Description 03/02/2022 Orders Only [facility] [address] [place] [address] Nohemy Diaz LPN Social History Tobacco Use [...] Department Care Team (Late Contact Info) Description 12/13/2024 10:45 AM EDT Office Visit [facility] [address] [place], [place] [phone] Name, MD Luis Manuel [address] [place] [address] 01/15/2025 10:00 AM EST Office Visit [facility] [address] [place], [place] [phone] Braydon, Bette, OD [address] [place], [place] [phone] documented as of this encounter Visit Diagnoses Not on filedocumented in this encounter Additional Health Concerns Assessment Noted Time PHQ-9 Depression Total Score: 0 02/26/20 22 3:35 PM EST documented as of this encounter Care Teams Route Supervisor Relationship Specialty Start Date End Date Name, MD Luis Manuel [address] [place], [place] [phone] PCP - General Family Medicine 03/25/17 Jennifer Hernandez PharmD [address] [place], [place] [phone] Pharmacist Internal Medicine 03/17/22 08/23/24 documented as of this encounter
== END 2024-10-23 11:57 | disposition home or self-care (01) ==
LOC: HO.HUSH 10:56
PROVIDERS: PCP Internal Medicine Geriatric Medicine; Visit Provider Nurse Practitioner Family
DX: R35.1 Nocturia (principal); Z87.898 Personal history of other specified conditions; N48.6 Induration penis plastica; N40.0 Benign prostatic hyperplasia without lower urinary tract symptoms
CPT/HCPCS: 99204

== ENCOUNTER → 2024-10-23 10:55 | Outpatient (BNVA) | payer OTHER, SELFPAY | PROVIDERS: PCP Internal Medicine Geriatric Medicine; Visit Provider Nurse Practitioner Family | DX: N40.1 Benign prostatic hyperplasia with lower urinary tract symptoms (principal); R35.1 Nocturia; N48.6 Induration penis plastica; Z87.898 Personal history of other specified conditions | CPT/HCPCS: 51798; 81003; 99202 ==

== ENCOUNTER 2024-12-06 11:03 | Outpatient (REF) | payer OTHER, SELFPAY ==
[2024-12-06 12:31] LABS: Prostate Specific Antigen 2.03 ng/mL (<0.05-4.0)
[2024-12-06 12:34] LABS: Hemoglobin A1C 410.7425 umol/L; Total Hemoglobin (HGBA1C) 5735.1635 umol/L
--- OUTSIDE RECORDS SUMMARY | 2024-12-06 14:14 | XMS_ITS | Encounter Summary ---
Author Organization [employer] Address [address] [place] [address] Care Team Providers Care Digital Specialist Name Role Phone Name, Luis Manuel VELARDE Primary Care Provider [phone] Encounter Details Date Type Department Care Team (Late st Contact Info) Description 12/06/2024 Orders Only GENERIC EXTERNAL DATA DEPARTMENT Provider, Generic External Data Social History Tobacco Use Types Packs/Day Years Used Date Smoking Tobacco: Former Cigarettes Passive Smoke Exposure: Past Smokeless Tobacco: Never Alcohol Use Standard Drinks/Week Comments Not Currently 0 (1 standard drink = 0.6 oz pur e alcohol) Alcohol Answer Date Recorded Frequency of Alcohol Consumption Not on file 08/31/2023 Average Number of Drinks Not on file 024 Frequency of Binge Drinking Not on file 08/13 Score 0 08/31/2023 Depression Answer Date Recorded Patient Health Questionnaire-9 Score 7 08/01/2024 Patient Health Questionnaire-9 Score 7 08/01/2024 Last PHQ-9: Questionnaire Data Not on file 0 08/01/2024 Housing Stability Answer Date Recorded What is your housing situation today? I have antonia thornton 08/01/[address] you li ve. Do you have problems with any of the following? Pests such as bugs, ants, or mice 08/01/2024 Food Insecurity Answer Date Recorded Within the past 12 months, y ou worried that your food would run out before you got money to buy more: Never True 08/01/2024 Within the past 12 months,th e food you bought just didn't last and you didn't have enough money to get more: Never True Transportation Answer Date Recorded In the past 12 months, has l ack of transportation kept you from medical appts, meetings, work or from getting things needed for daily living? No 08/01/2024 Utilities Answer Date Recorded In the past 12 months, has t he electric, gas, oil or water company threatened to shut off services in your home? No 08/01/2024 Depression Answer Date Recorded Patient Health Questionnaire-2 Score 2 08/01/2024 Internet Access Answer Date Recorded Internet Access Q1 Yes 08/01/2024 Internet Access Q2 Not on file 08/01/2024 Sex and Gender Information Value Date Recorded Sex Assigned at Male 01/12/2022 10:32 AM EDT Legal Sex Male 10:32 AM EDT Gender Identity Male 01/12/2022 10:32 AM EDT Sexual Orientation Straight 01/12/2022 10 :32 AM EDT documented as of this encounter Plan of Treatment Upcoming Encounters Date Type Department Care Team (Late st Contact Info) Description 12/13/2024 10:45 AM EDT Office Visit [facility] [address] [place] [address] Name, MD Luis Manuel [address] [place] [address] 01/15/2025 10:00 AM EST Office Visit [facility] OPTOMETRY [address] [place] [address] Braydon, Bette, OD [address] [place] [address] 02/16/2025 1:00 PM EST Office Visit [facility] MED[facility] [address] [place] [address] Barbie Nova MD [address] [place] [address] documented as of this encounter Goals Goal Patient Goal Type Associated Problems Recent Progress Patient-Stated? Author Hemoglobin A1c < 8 Result Component 8.7( 11:23 AM EDT) No Jennifer Hernandez PharmD Note: A1 goal of <8% (personalized based on age, hx of hypoBG) Record your blood sugar as directed Result Component On track( 023 12:34 PM EST) No Puia, Jennifer, PharmD Note: Monitor BG via CGM ensuring sensor is scanned at least once every 8 hours. Use manual SMBG as needed & as directed. documented as of this encounter Procedures Procedure Name Priority Date/Time Associated Diagnosis Comments PSA, TOTAL Routine 12/06/2024 11:23 AM EDT HEMOGLOBIN A1C Routine 12/06/2024 11:23 AM EDT documented in this encounter Results * (ABNORMAL) Hemoglobin A1c (12/06/2024 11:23 AM EDT) Hemoglobin A1c 8.7(H) <6.0 % [facility] Comment:Hemoglobin A1C Refer ence Range Adults: 4.8 - 6.0 % Non diabetic: < 6.0 % Goal: < 7.0 %Additional Action Suggested: > 8.0 %Note: Hemoglobin A1c results are invalid for patients with abnormal amounts of HbF. Blood transfusions may impact the HbA1c concentration in the patient sample. Estimated Average Glucose 203 mg/dL [facility] Comment:eAG = Estimated ave rage glucose which is %A1C expressed asaverage glucose, using the formula of the E8I-FniwbkdPjxeqsk Glucose study (ADAG), Diabetes Care, Vol.31,#8,Oct. 2007 12/06/2024 11:2 3 AM EDT 12/06/2024 11:23 AM EDT us Generic External Data Provider LAB BLOOD ORDERAB LES Final Result [facility] [address] [place] [phone] * PSA,Total (12/06/2024 11:23 AM EDT) Prostate Specific Antigen 2.03 <0.05 - 4.0 ng/mL [facility] Comment:PSA methodology: Abb charlene Alinity i ChemiluminescentMicroparticle Immunoassay (CMIA) 12/06/2024 11:2 3 AM EDT 12/06/2024 11:23 AM EDT us Generic External Data Provider LAB BLOOD ORDERAB LES Final Result [facility] [address] [place] [address] [phone] documented in this encounter Visit Diagnoses Not on filedocumented in this encounter Additional Health Concerns Assessment Noted Time PHQ-9 Depression Total Score: 7 08/02/19 25 11:00 AM EDT documented as of this encounter Care Teams Digital Specialist Relationship Specialty Start Date End Date Name, MD Luis Manuel [address] [place] [address] PCP - General Family Medicine 03/25/17 documented as of this encounter
--- OUTSIDE RECORDS SUMMARY | 2024-12-06 14:14 | XMS_ITS | Encounter Summary ---
Author Organization [facility] Address [address] [place] [address] Care Team Providers Care Service Car Driver Name Role Phone Name, Luis Manuel VELARDE Primary Care Provider [phone] Jennifer Hernandez PharmD Unavailable [phone] Reason for Visit * Reason Comments Med Refill Encounter Details Date Type Department Care Team (Late Contact Info) Description 09/09/2022 Refill [facility] [address] [place] [address] Name, MD Luis Manuel [address] [place] [address] Anxiety disorder, unspecified type Social History Tobacco [...] Description 12/13/2024 10:45 AM EDT Office Visit [facility] [address] [place] [address] Name, MD Luis Manuel [address] [place] [address] 01/15/2025 10:00 AM EST Office Visit [facility] OPTOMETRY [address] [place] [address] Braydon, Bette, OD [address] [place] [address] 02/16/2025 1:00 PM EST Office Visit [facility] [address] [place] [address] Barbie Nova MD [address] [place], [place] [phone] documented as of this encounter Goals Goal [...] documented as of this encounter Care Teams Service Car Driver Relationship Specialty Start Date End Date Name, MD Luis Manuel [place] [place], [place] PCP - General Family Medicine 03/25/17 Jennifer Hernandez PharmD [address] [place] [phone] Pharmacist Internal Medicine 03/17/22 08/23/24 documented as of this encounter
--- OUTSIDE RECORDS SUMMARY | 2024-12-06 14:14 | XMS_ITS | Encounter Summary ---
Author Organization [employer] Address [address] [place] [address] Care Team Providers Care Distribution Driver Name Role Phone Name, Luis Manuel VELARDE Primary Care Provider [phone] Jennifer Hernandez PharmD Unavailable [phone] Reason for Visit * Reason Onset Date Comments Pre Op 02/22/2024 Encounter Details Date Type Department Care Team ([facility] st Contact Info) Description 02/22/2024 Telephone [facility] [address] [place] [address] Name, MD Luis Manuel [address] [place] [address] Pre Op Social History Tobacco Use Types [...] MD Facility name: [facility] Surgeon's office number: [phone] ext [facility] Surgeon's office fax number: [phone] Contact name (person you spoke with): Maday Newman office note from surgeon requested: Yes Send Message to Sayda Guzman and Yasir Coley Requested to contact office instead of pt. documented in this encounter Plan of Treatment Upcoming Encounters Date Type Department Care Team (Late st Contact Info) Description 12/13/2024 10:45 AM EDT Office Visit [facility] [address] [place] [address] Name, MD Luis Manuel [address] [place] [address] 01/15/2025 10:00 AM EST Office Visit [facility] OPTOMETRY [address] [place] [address] Braydon, Bette, OD [address] [place] [address] 02/16/2025 1:00 PM EST Office Visit [facility] MED[facility] [address] [place] [address] Barbie Nova MD [address] [place] [address] documented as of this encounter Goals Goal [...] documented as of this encounter Care Teams Distribution Driver Relationship Specialty Start Date End Date Name, MD Luis Manuel [address] [place], [place] PCP - General Family Medicine 03/25/17 Jennifer Hernandez PharmD [address] [place], [place] [phone] Pharmacist Internal Medicine 03/17/22 08/23/24 documented as of this encounter
--- OUTSIDE RECORDS SUMMARY | 2024-12-06 14:14 | XMS_ITS | Encounter Summary ---
Author Organization [employer] Address [address] [place] [address] Care Team Providers Care Head Golf Professional Name Role Phone Name, Luis Manuel VELARDE Primary Care Provider [phone] Jennifer Hernandez PharmD Unavailable [phone] Reason for Visit * Reason Comments Med Refill Encounter Details Date Type Department Care Team ([facility] st Contact Info) Description 12/23/2022 Refill [facility] [address] [place], [place] [phone] Name, MD Luis Manuel [address] [place] [address] Fear of flying Social History Tobacco Use [...] Description 12/13/2024 10:45 AM EDT Office Visit [facility] MED[facility] [address] [place] [phone] Name, MD Luis Manuel [address] [place] [address] 01/15/2025 10:00 AM EST Office Visit [facility] OPTOMETRY [address] [place] [address] Braydon, Bette, OD [address] [place] [address] 02/16/2025 1:00 PM EST Office Visit [facility] MED[facility] [address] [place] [address] Barbie Nova MD [address] [place] [address] documented as of this encounter Goals Goal Patient Goal Type Associated Problems Recent Progress Patient-Stated? Author Hemoglobin A1c < 8 Result Component 8.7( 5 11:23 AM EDT) No Jennifer Hernandez, PharmD Note: A1 goal [...] documented as of this encounter Care Teams Head Golf Professional Relationship Specialty Start Date End Date Name, MD Luis Manuel [address] [place] [address] PCP - General Family Medicine 03/25/17 Jennifer Hernandez PharmD [address] [place] [address] Pharmacist Internal Medicine 03/17/22 08/23/24 documented as of this encounter
--- OUTSIDE RECORDS SUMMARY | 2024-12-06 14:14 | XMS_ITS | Encounter Summary ---
Author Organization [employer] Address [address] [place] [address] Care Team Providers Care Milk Route Supervisor Name Role Phone Name, Luis Manuel VELARDE Primary Care Provider [phone] Jennifer Hernandez PharmD Unavailable Reason for Visit * Reason Comments Med Refill Encounter Details Date Type Department Care Team ([facility] st Contact Info) Description 03/02/2022 Refill [facility] MED[facility] [address] [place] [address] Name, MD Luis Manuel [address] [place] [address] Social History Tobacco Use Types Packs/Day Years [...] Description 12/13/2024 10:45 AM EDT Office Visit [facility] MEDIC[facility] [address] [place] [address] Name, MD Luis Manuel [address] [place], [place] 01/15/2025 10:00 AM EST Office Visit [facility] OPTOMETRY [address] [place] [address] Braydon, Bette, OD [address] [place] [address] 02/16/2025 1:00 PM EST Office Visit [facility] MEDICINE [address] [place] [address] Barbie Nova MD [address] [place], [place] documented as of this encounter Visit Diagnoses Not on filedocumented in this encounter Additional Health Concerns Assessment Noted Time PHQ-9 Depression Total Score: 0 02/26/20 22 3:35 PM EST documented as of this encounter Care Teams Milk Route Supervisor Relationship Specialty Start Date End Date Name, MD Luis Manuel [address] [place] [address] PCP - General Family Medicine 03/25/17 Jennifer Hernandez PharmD [address] [place] [address] Pharmacist Internal Medicine 03/17/22 08/23/24 documented as of this encounter
--- OUTSIDE RECORDS SUMMARY | 2024-12-06 14:14 | XMS_ITS | Clinical Summary ---
Author Organization [employer] Address [address] [place] [address] Care Team Providers Care Pie Filler Name Role Phone Name, Luis Manuel VELARDE Primary Care Provider [phone] Allergies No known active allergies Medications Dextrose, Diabetic Use, (glucose) 1 g chewable tablet use as needed for low blood sugar 019 Active Misc. Devices (Cervical Pillow) miscIndications :Cervical spondylosis,Chr onic neck pain Use daily at bedtime 1 each 023 Active clonazePAM (KlonoPIN) 0.5 MG tabletIndicatio ns:Fear of flying One tab as needed 1/2 hour prior to flight 4 tablet 023 Active Additional Information Patient not taking.Reason: prescribed for use prior to flights, last in 2022, Reported on 08/24/2024 metFORMIN (Glucophage) 500 MG tablet Take 1 tablet (500 mg) by mouth with breakfast and with evening meal. 60 tablet 11 024 Active pen needle 32G x 4 mm miscIndications :Type 2 diabetes mellitus with other specified complication, unspecified whether retirement insulin use ([facility]) Use 4 times daily for insulin injection 100 each 11 024 2024 Active amLODIPine (Norvasc) 10 MG tablet TAKE 1 TABLET BY MOUTH EVERY DAY 30 tablet 5 025 Active irbesartan (Avapro) 300 MG tabletIndicatio ns:Essential hypertension TAKE 1 TABLET BY MOUTH EVERY DAY 90 tablet 1 025 Active Continuous Glucose Sound Recordist (FreeStyle Rolando 3 Amery) device 1 each Once per day. Use as directed for CGM 1 each 025 Active Continuous Glucose Sensor (FreeStyle Rolando 3 Plus Sensor) misc Apply 1 every 15 days as directed for CGM 2 each 025 Active empagliflozin (Jardiance) 25 MGIndications:T ype 2 diabetes mellitus with other specified complication, unspecified whether retirement insulin use ([facility]) Take 1 tablet (25 mg) by mouth in the morning. 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 15 mL 5 025 Active insulin lispro (HumaLOG) 100 UNIT/ML injectionIndica tions:Type 2 diabetes mellitus with other specified complication, unspecified whether retirement insulin use ([facility]) INJECT 10 UNITS SUBCUTANEOUSLY EVERY DAY BEFORE BREAKFAST, 12 UNITS DAILY BEFORE LUNCH, AND 16 UNITS DAILY BEFORE SUPPER DIRECTED 15 mL 025 Active Additional Information Patient taking differently: No details specified, Reason: taking 14 units w/ dinner but directed to use 16 units in CDTM 08/24/24, Reported on 08/24/2024 Lancets (OneTouch Delica Plus [id number]) [facility] Use to test blood sugar 4 times daily as directed 100 each 025 Active atorvastatin (Lipitor) 40 MG tabletIndicatio ns:Type 2 diabetes mellitus with other specified complication, 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 ([facility]) Use to test blood sugar 4 time(s) daily as directed 100 each 025 Active tamsulosin (Flomax) 0.4 MG 24 hr capsule TAKE 2 CAPSULES BY MOUTH EVERY DAY 60 capsule 2 025 Active escitalopram (Lexapro) 10 MG tabletIndicatio ns:Anxiety disorder, unspecified type TAKE 1 TABLET BY MOUTH EVERY DAY 30 tablet 025 Active escitalopram (Lexapro) 10 MG tabletIndicatio ns:Anxiety disorder, unspecified type TAKE 1 TABLET BY MOUTH EVERY DAY 30 tablet 025 2024 Discontinued Active Problems Problem Noted Date Diagnosed Date Acquired cataract 02/16/2024 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 02/16/2024 Overview (02/16/2024): Follows and [facility] Essential tremor 02/25/2022 Overview [...] disorder 02/23/2017 Hearing loss 02/23/2017 Hyperlipidemia associated with type 2 diabetes m adelfo 02/23/2017 Encounters Date Type Department Care Team Description 12/06/2024 Orders Only GENERIC EXTERNAL DATA DEPARTMENT Provider, Generic External Data 12/04/2024 Refill [facility] [address] [place], [place] [phone] Luis Manuel Wall MD Anxiety disorder, unspecified type 11/21/2024 Telephone [facility] MEDICINE [address] [place] [address] Luis Manuel Wall MD telephone call 11/21/2024 Telephone [facility] [address] [place], [place] [phone] Luis Manuel Wall MD Referral 11/01/2024 Refill [facility] [address] [place], [place] [phone] Luis Manuel Wall MD Anxiety disorder, unspecified type 09/29/2024 Refill [facility] [address] [place] [address] NameLuis Manuel MD Anxiety disorder, unspecified type 09/14/2024 Telephone [facility] [address] [place] [address] Kirit Jesus [place] november recalls 09/08/2024 Refill [facility] [address] [place] [address] Name, MD Luis Manuel from Last 3 Months Immunizations Immunization Administration Dates Next Due Moderna Covid-19 Vaccine 12+ 07/29/2021,03/05/20 21,08/15/2020,07/18/2020 Pneumococcal Conjugate PCV 13 04/22/2017 Pneumococcal Conjugate PCV 20 12/03/2023 Tdap 01/16/2022 Social History Tobacco Use Types Packs/Day Years Used Date Smoking Tobacco: Former Cigarettes Passive Smoke Exposure: Past Smokeless Tobacco: Never Tobacco Cessation:Counseling Given: Not [...] Sign Reading Time Taken Comments Blood Pressure 111/63 08/01/2024 10:55 AM EDT Pulse 82 08/01/2024 10:55 AM EDT Temperature 36.7 C (98 F) 08/01/2024 10:55 AM EDT Respiratory Rate 18 08/01/2024 10:55 AM EDT Oxygen Saturation 98% 08/01/2024 10:55 AM EDT Inhaled Oxygen Concentration - - Weight 76.4 kg (168 lb 6 oz) 08/01/2024 10:55 AM EDT Height 165.1 cm (5' 5 ) 08/01/2024 10:55 AM EDT Body Mass Index 28.02 08/01/2024 10:55 AM EDT Plan of Treatment Upcoming Encounters Date Type Department Care Team (Late st Contact Info) Description 12/13/2024 10:45 AM EDT Office Visit [facility] MED[facility]INE [address] [place] [phone] Name, MD Luis Manuel [address] [place] [address] 01/15/2025 10:00 AM EST Office Visit [facility] OPTOMETRY [address] [place] [address] Bette Bryson, OD [address] [place] [address] 02/16/2025 1:00 PM EST Office Visit [facility] MEDICINE [address] [place] [address] Barbie Nova MD [address] [place] [address] Health Maintenance Due Date Last Done Comments Derm Melanoma Skin Check 1948 Alcohol/Substance Use Screening 1960 Hepatitis C Screening 01/07/1966 Zoster Vaccines (1 of 2) 01/07/1998 RSV Patients and Patients Aged 60 years or older (1 - 1-dose 75+ series) 01/07/2023 Diabetes: Foot Exam 05/17/2024 05/18/2023, 05/18/2023, 05/18/2023, Additional history exists Eye Exam 09/21/2024 09/22/2023, 09/12, 09/22/2023, Additional history exists COVID-19 Vaccine ( season) 2024 06/01/2022, 07/29/2021, 03/05/2021, Additional history exists Influenza Vaccine (#1) 2024 Diabetes: Hemoglobin A1C 03/07/2025 025, 08/01/2024, 03/03/2024, Additional history exists Lipid Panel 04/10/2025 04/10/2024, 03/0 10/2023, 02/26/2022, Additional history exists Depression Screening 08/01/2025 08/01/2024, 08/02/19 SDOH Screening 08/01/2025 08/01/2024 Tobacco Screening 08/01/2025 08/01/2024 DTaP/Tdap/Td Vaccines (2 - Td or Tdap) 01/17/2032 01/16/2022 Pneumococcal Vaccine: 50+ Years Completed 12/03/2023, 04/22/2017 HIB Vaccines Aged [...] patient's age to complete this topic Meningococcal B Vaccine Aged Out No l onger eligible based on patient's age to complete [...] Procedure Name Priority Date/Time Associated Diagnosis Comments HEMOGLOBIN A1C Routine 12/06/2024 11:23 AM EDT PSA, TOTAL Routine 12/06/2024 11:23 AM EDT LIPID PANEL, STANDARD Routine 04/10/2024 8:10 AM EST Type 2 diabetes mellitus with other specified complication, 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 ([facility]) Prostatism Essential hypertension Hyperlipidemia associated with type 2 diabetes mellitus ([facility]) ([facility]) from Last 3 Months or Most Recently Relevant to Health Maintenance Results * PSA,Total (12/06/2024 11:23 AM EDT) Prostate Specific Antigen 2.03 <0.05 - 4.0 ng/mL [facility] Comment:PSA methodology: Missy Funez i ChemiluminescentMicroparticle Immunoassay (CMIA) 12/06/2024 11:2 3 AM EDT 12/06/2024 11:23 AM EDT Generic External Data Provider LAB BLOOD ORDERAB LES Final Result Performing Organization Address [facility]/ZIP Co de Phone Number [facility] [address] [place] [phone] * (ABNORMAL) Hemoglobin A1c (12/06/2024 11:23 AM EDT) Hemoglobin A1c 8.7(H) <6.0 % [facility] Comment:Hemoglobin A1C Refer ence Range Adults: 4.8 - 6.0 % Non diabetic: < 6.0 % Goal: < 7.0 %Additional Action Suggested: > 8.0 %Note: Hemoglobin A1c results are invalid for patients with abnormal amounts of HbF. Blood transfusions may impact the HbA1c concentration in the patient sample. Estimated Average Glucose 203 mg/dL [facility] Comment:eAG = Estimated ave rage glucose which is %A1C expressed asaverage glucose, using the formula of the S3Y-QauihrfPlgwzff Glucose study (ADAG), Diabetes Care, Vol.31,#8,Oct. 2007 12/06/2024 11:2 3 AM EDT 12/06/2024 11:23 AM EDT Generic External Data Provider LAB BLOOD ORDERAB LES Final Result Performing Organization Address [facility] Co de Phone Number [facility] [address] [place] [phone] * (ABNORMAL) Lipid Panel, Standard (04/10/2024 8:10 AM EST) Triglycerides 156(H) <150 mg/dL [facility] Comment:Desirable Triglyceri de: less than 150 mg/dLBorderline High Triglyceride 150-199 mg/dLHigh Triglyceride: 200-499 mg/dLVery High Triglyceride: greater than or equal to 5OO mg/dL Cholesterol 117 <200 mg/dL [facility] Comment:Desirable Cholestero l: less than 200 mg/dLBorderline High Cholesterol: 200-239 mg/dLHigh Cholesterol: greater than 239 mg/dL LDL Cholesterol Calculated 49 <100 mg/dL [facility] Comment:Desirable LDL: less than 100 mg/dLNear Optimal/Above Optimal LDL: 110- 129 mg/dLBorderline High LDL: 130-159 mg/dLHigh LDL: 160-189 mg/dLVery High LDL: greater than or equal to 190 mg/dL HDL Cholesterol 37(L) >40 mg/dL [facility] Comment:Desirable HDL: great er than 40 mg/dL Note: This HDL assay may give artificially low results in patients with liver disease. Blood Venous blood specimen / Unknown 04/10/2024 8:10 AM EST 04/10/2024 11:25 AM EST us Luis Manuel Wall MD LAB BLOOD ORDERABLES Final Resul t [facility] [address] [place] [phone] from Last 3 Months or Most Recently Relevant to Health Maintenance Insurance [facility] DUAL COMPLETE [facility] STANDARD Care Teams Pie Filler Relationship Specialty Start Date End Date Name, MD Luis Manuel [address] [place] [phone] PCP - General Family Medicine 03/25/17
--- OUTSIDE RECORDS SUMMARY | 2024-12-06 14:14 | XMS_ITS | Clinical Summary ---
Author Organization [facility] Address [address] [place] [address] Care Team Providers Care Filling Station Attendant Name Role Phone Name, Luis Manuel Primary Care Provider [phone] Allergies No known active allergies Medications acetaminophen [...] Plan of Treatment Not on file Insurance [facility] MCR Care Teams Filling Station Attendant Relationship Specialty Start Date End Date Name, Luis Manuel [address] [place] [address] PCP - General Internal Medicine 01/17/21
--- OUTSIDE RECORDS SUMMARY | 2024-12-06 14:14 | XMS_ITS | Encounter Summary ---
Author Organization [employer] Address [address]t [place] [address] Care Team Providers Care Board Turner Name Role Phone Name, Luis Manuel VELARDE Primary Care Provider [phone] Jennifer Hernandez PharmD Unavailable Encounter Details Date Type Department Care Team ([facility] st Contact Info) Description 02/24/2022 Abstract [facility] [address] [place] [address] Name, MD Luis Manuel [address] [place] [address] Social History Tobacco Use Types Packs/Day Years [...] PM EST documented as of this encounter Functional Status * Over the past 2 weeks, how often have you been bothered by any of the following problems? Question Answer Date of Assessment Author Little interest or pleasure in doing things Not at all 02/25/2022 3:35 PM EST Ruth Euceda MA Feeling down, depressed, or hopeless Not at all 02/25/2022 3:35 PM Ruth Sutherland MA Patient Health Questionnaire -2 Score 0 02/25/2022 3:35 PM Ruth Sutherland MA * Over the past 2 weeks, how often have you been bothered by any of the following problems? Question Answer Date of Assessment Author Trouble falling or staying asleep, or sleeping too much Not at all 02/25/2022 3:35 PM Ruth Sutherland MA Feeling tired or having sylvia le energy Not at all 02/25/2022 3:35 PM Ruth Sutherland [place] Poor appetite or overeating Not at all 02/25/2022 3: 35 PM Ruth Sutherland MA Feeling bad about yourself - or that you are a failure or have let yourself or your family down Not at all 02/25/2022 3:35 PM Ruth Sutherland MA Trouble concentrating on things, such as reading the newspaper or watching television Not at all 02/25/2022 3:35 PM Ruth Sutherland MA Moving or speaking so slowly that other people could have noticed? Or the opposite - being so fidgety or restless that you have been moving around a lot more than usual. Not at all 02/25/2022 3:35 PM Ruth Sutherland MA Thoughts that you would be better off or hurting yourself in some way Not at all 02/25/2022 3:35 PM Ruth Sutherland MA Patient Health Questionnaire -9 Score 0 02/25/2022 3:35 PM Ruth Sutherland MA documented as of this encounter Plan of Treatment Upcoming Encounters Date Type Department Care Team (Late st Contact Info) Description 12/13/2024 10:45 AM EDT Office Visit [facility] [address] [place] [address] Name, MD Luis Manuel [address] [place] [address] 01/15/2025 10:00 AM EST Office Visit [facility] OPTOMETRY [address] [place] [address] Bette Bryson, OD [address] [place], [place] [phone] 02/16/2025 1:00 PM EST Office Visit [facility] [address] [place], [place] [phone] Barbie Nova MD [address] [place], [place] [phone] documented as of this encounter Visit Diagnoses Not on filedocumented in this encounter Care Teams Board Turner Relationship Specialty Start Date End Date Name, MD Luis Manuel [address] [place], [place] [phone] PCP - General Family Medicine 03/25/17 Jennifer Hernandez PharmD [address] [place] [phone] Pharmacist Internal Medicine 03/17/22 08/23/24 documented as of this encounter
--- OUTSIDE RECORDS SUMMARY | 2024-12-06 14:14 | XMS_ITS | Encounter Summary ---
Author Organization [employer] Address [address] [place] [address] Care Team Providers Care Brick Tester Name Role Phone Name, Luis Manuel VELARDE Primary Care Provider [phone] Reason for Visit * Reason Comments Med Refill Encounter Details Date Type Department Care Team (Late st Contact Info) Description 12/04/[address] [facility] [address] [place], [place] [phone] Name, MD Luis Manuel [address] [place] [address] Anxiety disorder, unspecified type Social History Tobacco [...] your housing situation today? I have antonia norberto 08/01/[address] you li [...] Description 12/13/2024 10:45 AM EDT Office Visit [facility] [address] [place] [phone] Name, MD Luis Manuel [address] [place] [address] 01/15/2025 10:00 AM EST Office Visit [facility] OPTOMETRY [address] [place] [address] Bette Bryson, OD [address] [place] [address] 02/16/2025 1:00 PM EST Office Visit [facility] [address] [place] [address] Barbie Nova MD [address] [place] [address] documented as of this encounter Goals Goal Patient Goal Type Associated Problems Recent Progress Patient-Stated? Author Hemoglobin A1c < 8 Result Component 8.7( 11:23 AM EDT) No Jennifer Hernandez Cornelius Note: A1 goal of <8% (personalized based on age, hx of hypoBG) Record your blood sugar as directed Result Component On track( 023 12:34 PM EST) No Jennifer Hernandez, Cornelius Note: Monitor BG via CGM ensuring sensor is scanned at least once every 8 hours. Use manual SMBG as needed & as directed. documented as of this encounter Visit Diagnoses Diagnosis Anxiety disorder, unspecified type documented in this encounter Additional Health Concerns Assessment Noted Time PHQ-9 Depression Total Score: 7 08/02/19 25 11:00 AM EDT documented as of this encounter Care Teams Brick Tester Relationship Specialty Start Date End Date Name, MD Luis Manuel [address] [place] [address] PCP - General Family Medicine 03/25/17 documented as of this encounter
--- OUTSIDE RECORDS SUMMARY | 2024-12-06 14:14 | XMS_ITS | Encounter Summary ---
Author Organization [employer] [facility] Address [address] [facility] [address] [place] [address] Care Team Providers Care Tile Grinder Name Role Phone Name, Luis Manuel VELARDE Primary Care Provider [phone] Jennifer Hernandez PharmD Unavailable [phone] Encounter Details Date Type Department Care Team ([facility] Contact Info) Description 03/02/2022 Orders Only [facility] [address] [place] [address] Nohemy Diaz LPN Social History Tobacco Use [...] Description 12/13/2024 10:45 AM EDT Office Visit [facility] [address] [place], [place] [phone] Name, MD Luis Manuel [address] [place] [address] 01/15/2025 10:00 AM EST Office Visit [facility] OPTOMETRY [address] [place], [place] [phone] Braydon, Bette, OD [address] [place] [address] 02/16/2025 1:00 PM EST Office Visit [facility] MED[facility] [address] [place] [address] Barbie Nova MD [address] [place] [address] documented as of this encounter Visit Diagnoses Not on filedocumented in this encounter Additional Health Concerns Assessment Noted Time PHQ-9 Depression Total Score: 0 02/26/20 22 3:35 PM EST documented as of this encounter Care Teams Tile Grinder Relationship Specialty Start Date End Date Name, MD Luis Manuel [address] [place] [phone] PCP - General Family Medicine 03/25/17 Jennifer Hernandez PharmD [address] [place] [address] [phone] Pharmacist Internal Medicine 03/17/22 08/23/24 documented as of this encounter
== END 2024-12-06 11:04 | disposition home or self-care (01) ==
LOC: HO.LAB 11:03
PROVIDERS: PCP Internal Medicine Geriatric Medicine; Visit Provider Nurse Practitioner Family
DX: Z12.5 Encounter for screening for malignant neoplasm of prostate (principal); E11.9 Type 2 diabetes mellitus without complications; N40.0 Benign prostatic hyperplasia without lower urinary tract symptoms
CPT/HCPCS: 36415; 83036; 84153

== ENCOUNTER 2024-12-18 12:59 | Outpatient (REF) | payer OTHER, SELFPAY ==
--- OUTSIDE RECORDS SUMMARY | 2024-12-13 10:45 | XMS_ITS | Encounter Summary ---
Author Organization [employer] Address [address] [place] [address] Care Team Providers Care Review Engineer Name Role Phone Name, Luis Manuel VELARDE Primary Care Provider [phone] Reason for Visit * Reason Comments Diabetes Encounter Details Date Type Department Care Team (Late st Contact Info) Description 12/13/2024 10:45 AM EDT Office Visit [facility] MEDICINE [address] [place], [place] [phone] Name, MD Luis Manuel [address] [place] [address] Type 2 diabetes mellitus with stage 3a chronic kidney disease, with long-term current use of insulin (HCC) (Primary Dx) Social History Tobacco Use Types Packs/Day Years [...] the past 12 months, has t he [place], gas, oil or water company threatened to [...] Sign Reading Time Taken Comments Blood Pressure 130/54 12/13/2024 10:45 AM EDT Pulse 100 12/13/2024 10:45 AM EDT Temperature 35.7 C (96.2 F) 12/13/2024 10:45 AM EDT Respiratory Rate 12 12/13/2024 10:45 AM EDT Oxygen Saturation 98% 12/13/2024 10:45 AM EDT Inhaled Oxygen Concentration - - Weight 75.8 kg (167 lb 3.2 oz) 12/13/2024 10:45 AM EDT Height 165.1 cm (5' 5 ) 12/13/2024 10:45 AM EDT Body Mass Index 27.82 12/13/2024 10:45 AM EDT documented in this encounter Progress Notes * Luis Manuel Wall MD - 12/13/2024 10:45 AM EDT Images from the original note were not included. Subjective Patient ID: Dg Chand is a 74 y.o. male who presents for Diabetes. Patient comes for follow-up visit. He is doing well. Blood sugar control is acceptable without episodes of hypoglycemia. He is using his metformin, Jardiance, insulin as prescribed. He has CGM in place. He has upcoming appointments for eye exam, dermatology. Unfortunately he refuses any vaccination. Review of Systems Constitutional: Negative for chills, fatigue and fever. HENT: Negative for sore throat. Respiratory: Negative for cough, chest tightness and shortness of breath. Cardiovascular: Negative for chest pain, palpitations and leg swelling. Gastrointestinal: Negative for abdominal pain and blood in stool. 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 Cardiovascular: Rate and Rhythm: Normal rate and regular rhythm. Pulses: Dorsalis pedis pulses are 2+ on the right side and 2+ on the left side. Posterior tibial pulses are 2+ on the right side and 2+ on the left side. Heart sounds: No murmur heard. Pulmonary: Effort: Pulmonary effort is normal. No respiratory distress. Breath sounds: No wheezing, rhonchi or rales. Abdominal: Palpations: Abdomen is soft. Tenderness: There is no abdominal tenderness. Musculoskeletal: Right lower leg: No edema. Left lower leg: No edema. Right foot: Normal range of motion. Bunion present. Left foot: Normal range of motion. Bunion present. Feet: Right foot: Protective Sensation: 5 sites tested. 5 sites sensed. Skin integrity: Skin integrity normal. Toenail Condition: Right toenails are normal. Left foot: Protective Sensation: 5 sites tested. 5 sites sensed. Skin integrity: Skin integrity normal. Toenail Condition: Left toenails are normal. Neurological: General: No focal deficit present. Mental Status: He is alert. Motor: No weakness. Hemoglobin A1c Order: [id number] Status: Final result Test Result Released: No (inaccessible in [facility]) 0 Result Notes 1 Topic Component Ref Range & Units (hover) 7 d ago (12/06/24) 4 mo ago (5/20/25) 9 mo ago (03/03/24) 1 yr ago (11/26/23) 1 yr ago (08/31/23) 1 yr ago (05/14/23) 1 yr ago (02/09/23) Hemoglobin A1c 8.7 High 8.1 Abnormal R 7.9 Abnormal R 7.8 Abnormal R 8.0 Abnormal R 7.8 Abnormal R 7.6 Abnormal R Latest Reference Range & Units 04/10/24 08:10 Glucose 60 - 115 mg/dL 169 (H) Urea Nitrogen (BUN) 9 - 16 mg/dL 23 (H) Creatinine, Serum 0.5 - 1.4 mg/dL 1.53 (H) Sodium 135 - 145 mmol/L 139 Potassium 3.3 - 5.1 mmol/L 4.6 Chloride 96 - 108 mmol/L 105 Carbon Dioxide 22 - 29 mmol/L 27 Calcium 8.4 - 10.2 mg/dL 9.0 Albumin Level 3.5 - 5.0 g/dL 4.0 Bilirubin, Total 0.0 - 1.0 mg/dL 0.5 AST 5 - 37 U/L 27 ALT 0 - 40 U/L 27 Anion Gap 12 - 20 12 Total Protein 6.5 - 8.0 g/dL 7.7 Cholesterol <200 mg/dL 117 HDL Cholesterol >40 mg/dL 37 (L) LDL Cholesterol Calculated <100 mg/dL 49 Triglycerides <150 mg/dL 156 (H) Red Blood Count 4.60 - 5.80 X10*6/uL 4.68 Hemoglobin 14.0 - 18.0 g/dl 14.4 Hematocrit 42.0 - 52.0 % 42.9 Mean Corpuscular Volume 80.0 - 98.0 fL 91.7 Mean Corpuscular Hemoglobin 27.0 - 33.0 pg 30.8 Mean Corpuscular HGB Conc 31.0 - 36.0 g/dl 33.6 Red Cell Distribution Width 11.0 - 16.0 % 12.6 Platelet Count 160 - 400 X10*3/uL 366 Eosinophils Percent Auto 0 - 4 % 4.4 (H) Lymphocytes Absolute Auto 1.2 - 4.9 X10*3/uL 1.3 Basophils Absolute Auto 0.0 - 0.2 X10*3/uL 0.1 Monocytes Absolute Auto 0.1 - 1.2 X10*3/uL 0.6 Neutrophils Absolute Auto 2.0 - 8.3 x10*3/uL 5.2 Neutrophils Percent Auto 45 - 73 % 69.1 Basophils Percent Auto 0 - 2 % 0.9 Eosinophils Absolute Auto 0.0 - 0.4 X10*3/uL 0.3 Lymphocytes Percent Auto 20 - 40 % 17.2 (L) Monocytes Percent Auto 2 - 11 % 7.9 Imm Gran Abs Auto 0.00 - 0.03 X10*3/uL 0.04 (H) Imm Gran Pct Auto 0.0 - 0.4 % 0.5 (H) Microalbumin Urine mg/L 198.0 Alkaline Phosphatase 39 - 117 U/L 74 Creatinine, Urine mg/dL 77.62 Estimated Glomerular Filt Rate 44 Mean Platelet Volume 9.4 - 12.4 fL 10.0 Microalbum Creatinine Ratio Ur <30 ug/mg cr 255.0 (H) NRBC Abs Auto 0.0 - 0.012 X10*3/uL 0.000 NRBC Pct Auto 0.0 - 0.2 /100WBC 0.0 White Blood Count 4.8 - 10.8 X10*3/uL 7.5 (H): Data is abnormally high (L): Data is abnormally low Assessment/Plan Diagnoses and all orders for this visit: Type 2 diabetes mellitus with stage 3a chronic kidney disease, with long-term current use of insulin (HCC) Comments: Continue current medication regimen, patient is reminded to avoid sweets and soda, I recommended towalk after meals, he is recommended to go to the lab for BMP and urine for microalbumin we ordered for him back in July Orders: - POCT Glucose Future Appointments Date Time Provider Department Center 01/15/2025 10:00 AM Bette Bryson OD [facility] 02/16/2025 1:00 PM Barbie Nova MD MEDICINE [facility] documented in this encounter Plan of Treatment Upcoming Encounters Date Type Department Care Team (Late st Contact Info) Description 01/15/2025 10:00 AM EST Office Visit [facility] OPTOMETRY [address] [place] [address] Bette Bryson, BALAJI [address] [place], [place] [phone] 02/16/2025 1:00 PM EST Office Visit [facility] [place] [address] Barbie Nova MD [address] [place], [place] [phone] 03/13/2025 10:00 AM EST Office Visit [facility] [address] [place], [place] [phone] Name, MD Luis Manuel [place] [place], [place] [phone] documented as of this encounter Goals Goal Patient Goal Type Associated Problems Recent Progress Patient-Stated? Author Hemoglobin A1c < 8 Result Component 8.7( 11:23 AM EDT) No Jennifer Hernandez, Cornelius Note: A1 goal [...] Procedure Name Priority Date/Time Associated Diagnosis Comments POCT GLUCOSE Routine 12/13/2024 10:46 AM EDT Type 2 diabetes mellitus with stage 3a chronic kidney disease, with long-term current use of insulin ([facility]) documented in this encounter Results * (ABNORMAL) POCT Glucose (12/13/2024 10:46 AM EDT) [facility] Glucose Blood, POC 312(A) 60 - 200 mg/dL QC Media Lot # [id number] Lot# Expiration Date Blood Capillary blood specimen / Unknown 12/13/2024 10:46 AM EDT us Luis Manuel Wall MD POINT OF CARE TEST ENTER/EDIT OR DERABLES Final Result documented in this encounter Visit Diagnoses Diagnosis Type 2 diabetes mellitus with stage 3a chronic kidney disease, with long-term current use of insulin (HCC)- Primary documented in this encounter Additional Health Concerns Assessment Noted Time PHQ-9 Depression Total Score: 7 08/02/19 25 11:00 AM EDT documented as of this encounter Care Teams Review Engineer Relationship Specialty Start Date End Date Name, MD Luis Manuel [address] [place] [address] PCP - General Family Medicine 03/25/17 documented as of this encounter
--- NOTE | ~2024-12-18 | US_ITS ---
EXAMINATION: US RETROPERITONEAL COMPLETE (RENAL) CLINICAL INFORMATION: Nocturia. COMPARISON: Renal ultrasound 03/25/2020. TECHNIQUE: Real-time imaging of the kidneys and bladder. FINDINGS: RIGHT KIDNEY: 11.1 x 5.3 x 6.1 cm (SAG x AP x TRV). The kidney is normal in size, contour, and echogenicity. Renal cortical thickness is normal. No calculi or focal parenchymal lesions. No hydronephrosis. There is a mid pole simple cyst measuring 3 mm. LEFT KIDNEY: 10.6 x 4.5 x 4.5 cm (SAG x AP x TRV). The kidney is normal in size, contour, and echogenicity. Renal cortical thickness is normal. No focal parenchymal lesions. No hydronephrosis. There is a nonobstructing 5 mm calculus in the mid to lower pole. BLADDER: Well-distended. The wall is mildly thickened and trabeculated suggesting chronic outlet obstruction versus neurogenic bladder. Bilateral ureteral jets are demonstrated. Prevoid bladder volume is 178 mL. Postvoid bladder volume is 67 mL. (Postvoid residual = 38%) Prostate volume is estimated at 43 mL. US/US retroperitoneal comp IMPRESSION: 1. Nonobstructing 5 mm calculus in the left kidney mid to lower pole. 2. No hydronephrosis of either kidney. 3. Bladder demonstrates mild wall thickening and trabeculation, suggesting chronic outlet obstruction versus neurogenic bladder. 38% post void residual is present. Normal ureteral jets. 4. Prostate is moderately enlarged at 43 mL estimated. Electronically signed by: Chadd Chapa MD 12/18/2024 02:08 PM EDT
--- OUTSIDE RECORDS SUMMARY | 2024-12-18 15:20 | XMS_ITS | Encounter Summary ---
Author Organization [employer] Address [address] [place] [address] Care Team Providers Care Senior Associate Name Role Phone Name, Luis Manuel VELARDE Primary Care Provider [phone] Encounter Details Date Type Department Care Team (Latest Contact Info) Description 12/13/2024 Travel Social History Tobacco Use Types Packs/Day [...] Description 01/15/2025 10:00 AM EST Office Visit [facility] OPTOMETRY [address] [place] [address] Braydon, Bette, OD [address] [place] [address] 02/16/2025 1:00 PM EST Office Visit [facility] MEDICINE [address] [place] [address] Barbie Nova MD [address] [place] [address] 03/13/2025 10:00 AM EST Office Visit [facility] MEDICINE [address] [place] [address] Name, MD Luis Manuel [address] [place] [address] documented as of this encounter Goals Goal Patient Goal Type Associated Problems Recent Progress Patient-Stated? Author Hemoglobin A1c < 8 Result Component 8.7( 11:23 AM EDT) No Jennifer Hernandez, PharmOg Note: A1 goal of <8% (personalized based [...] as of this encounter Care Teams Senior Associate Relationship Specialty Start Date End Date Name, MD Luis Manuel [address] [place] [address] PCP - General Family Medicine 03/25/17 documented as of this encounter
--- OUTSIDE RECORDS SUMMARY | 2024-12-18 15:20 | XMS_ITS | Clinical Summary ---
Author Organization [facility] Address [address] [place] [address] Care Team Providers Care Lead Person Name Role Phone Name, Luis Manuel Primary [...] Plan of Treatment Not on file Insurance [facility] M[facility] Care Teams Lead Person Relationship Specialty Start Date End Date Name, Luis Manuel [address] [place] [address] PCP - General Internal Medicine 01/17/21
--- OUTSIDE RECORDS SUMMARY | 2024-12-18 15:20 | XMS_ITS | Encounter Summary ---
Author Organization [employer] Address [address] [place] [address] Care Team Providers Care Claim Representative Name Role Phone Name, Luis Manuel VELARDE Primary Care Provider [phone] Jennifer Hernandez PharmD Unavailable [phone] Reason for Visit * Reason Comments Med Refill Encounter Details Date Type Department Care Team ([facility] st Contact Info) Description 03/02/2022 Refill [facility] MEDICINE [address] [place] [address] Name, MD Luis Manuel [address] [place] [address] Social History Tobacco Use Types Packs/Day Years [...] Description 01/15/2025 10:00 AM EST Office Visit [facility] OPTOMETRY [address] [place] [address] Braydon, Bette, OD [address] [place] [address] 02/16/2025 1:00 PM EST Office Visit [facility] MEDICINE [address] [place] [address] Barbie Nova MD [address] [place] [address] 03/13/2025 10:00 AM EST Office Visit [facility] MEDICINE [address] [place] [address] Name, MD Luis Manuel [address] [place] [address] documented as of this encounter Visit Diagnoses Not on filedocumented in this encounter Additional Health Concerns Assessment Noted Time PHQ-9 Depression Total Score: 0 02/26/20 22 3:35 PM EST documented as of this encounter Care Teams Claim Representative Relationship Specialty Start Date End Date Name, MD Luis Manuel [address] [place] [address] PCP - General Family Medicine 03/25/17 Jennifer Hernandez PharmD [address] [place] [address] Pharmacist Internal Medicine 03/17/22 08/23/24 documented as of this encounter
--- OUTSIDE RECORDS SUMMARY | 2024-12-18 15:20 | XMS_ITS | Encounter Summary ---
Author Organization [employer] Address [address] [place] [address] Care Team Providers Care Anesthesiology Physician Name Role Phone Name, Luis Manuel VELARDE Primary Care Provider [phone] Reason for Visit * Reason Comments Med Refill Encounter Details Date Type Department Care Team (Late st Contact Info) Description 12/14/2024 Refill [facility] MEDICINE [address] [place], [place] [phone] Name, MD Luis Manuel [address] [place] [address] Type 2 diabetes mellitus with other specified complication, unspecified whether terminal system operator insulin use (HCC) Social History Tobacco Use Types Packs/Day Years [...] Description 01/15/2025 10:00 AM EST Office Visit [facility] OPTOMETRY [address] [place] [address] Braydon, Bette, OD [address] [place] [address] 02/16/2025 1:00 PM EST Office Visit [facility] MEDICINE [address] [place] [address] Barbie Nova MD [address] [place] [address] 03/13/2025 10:00 AM EST Office Visit [facility] MEDICINE [address] [place] [address] Name, MD Luis Manuel [address] [place] [address] documented as of this encounter Goals Goal Patient Goal Type Associated Problems Recent Progress Patient-Stated? Author Hemoglobin A1c < 8 Result Component 8.7(09/24/202 5 11:23 AM EDT) No Jennifer Hernandez PharmD [...] as of this encounter Visit Diagnoses Diagnosis Type 2 diabetes mellitus with other specified complication, unspecified whether halfway insulin use (HCC) documented in this encounter Additional Health Concerns Assessment Noted Time PHQ-9 Depression Total Score: 7 08/02/19 25 11:00 AM EDT documented as of this encounter Care Teams Anesthesiology Physician Relationship Specialty Start Date End Date Name, MD Luis Manuel [address] [place] [address] PCP - General Family Medicine 03/25/17 documented as of this encounter
--- OUTSIDE RECORDS SUMMARY | 2024-12-18 15:20 | XMS_ITS | Encounter Summary ---
Author Organization [employer] [facility] Address [address] [facility] 7t [place] [address] Care Team Providers Care Hog Pusher Name Role Phone Name, Luis Manuel VELARDE Primary Care Provider [phone] Jennifer Hernandez PharmD Unavailable [phone] Encounter Details Date Type Department Care Team ([facility] Contact Info) Description 03/02/2022 Orders Only [facility] [address] [place] [address] Nohemy Diaz LPN Social History Tobacco Use [...] Department Care Team (Late Contact Info) Description 01/15/2025 10:00 AM EST Office Visit [facility] OPTOMETRY [address] [place] [address] Braydon, Bette, OD [address] [place] [address] 02/16/2025 1:00 PM EST Office Visit [facility] MEDICINE [address] [place] [address] Barbie Nova MD [address] [place] [address] 03/13/2025 10:00 AM EST Office Visit [address] [address] Name, MD Luis Manuel [address] [place] [address] documented as of this encounter Visit Diagnoses Not on filedocumented in this encounter Additional Health Concerns Assessment Noted Time PHQ-9 Depression Total Score: 0 02/26/20 22 3:35 PM EST documented as of this encounter Care Teams Hog Pusher Relationship Specialty Start Date End Date Name, MD Luis Manuel [address] [place] [address] PCP - General Family Medicine 03/25/17 Jennifer Hernandez, AnjelicaD [address] [place] [address] Pharmacist Internal Medicine 03/17/22 08/23/24 documented as of this encounter
--- OUTSIDE RECORDS SUMMARY | 2024-12-18 15:20 | XMS_ITS | Encounter Summary ---
Author Organization [employer] Address [address] [place] [address] Care Team Providers Care Melter Supervisor Oxygen Furnace Name Role Phone Name, Luis Manuel VELARDE Primary Care Provider [phone] Reason for Visit * Reason Comments Med Refill Encounter Details Date Type Department Care Team ([facility] st Contact Info) Description 12/13/2024 Refill [facility] MEDICINE [address] [place], [place] [phone] Name, MD Luis Manuel [address] [place] [address] Social History Tobacco Use Types Packs/Day Years [...] Description 01/15/2025 10:00 AM EST Office Visit [facility] OPTOMETRY [address] [place] [address] Braydon, Bette, OD [address] [place] [address] 02/16/2025 1:00 PM EST Office Visit [facility] MEDICINE [address] [place] [address] Barbie Nova MD [address] [place] [address] 03/13/2025 10:00 AM EST Office Visit [facility] MEDICINE [address] [place] [address] Name, MD Luis Manuel [address] [place] [address] documented as of this encounter Goals Goal Patient Goal Type Associated Problems Recent Progress Patient-Stated? Author Hemoglobin A1c < 8 Result Component 8.7( 11:23 AM EDT) No Jennifer Hernandez, PharmD [...] documented as of this encounter Care Teams Melter Supervisor Oxygen Furnace Relationship Specialty Start Date End Date Name, MD Luis Manuel [address] [place] [address] PCP - General Family Medicine 03/25/17 documented as of this encounter
--- OUTSIDE RECORDS SUMMARY | 2024-12-18 15:20 | XMS_ITS | Encounter Summary ---
Author Organization [employer] Address [address] [place] [address] Care Team Providers Care Tar Heater Name Role Phone Name, Luis Manuel VELARDE Primary Care Provider [phone] Jennifer Hernandez PharmD Unavailable [phone] Reason for Visit * Reason Onset Date Comments Pre Op 02/22/2024 Encounter Details Date Type Department Care Team ([facility] st Contact Info) Description 02/22/2024 Telephone [facility] MEDICINE [address] [place] [address] Name, MD Luis Manuel [address] [place] [address] Pre Op Social History Tobacco Use Types [...] MD Facility name: [facility] Surgeon's office number: [phone] ext [facility] Surgeon's office fax number: [phone] Contact name (person you spoke with): Maday [place] office note from surgeon requested: Yes Send Message to Sayda Guzman and Yasir Coley Requested to contact office instead of pt. documented in this encounter Plan of Treatment Upcoming Encounters Date Type Department Care Team (Late st Contact Info) Description 01/15/2025 10:00 AM EST Office Visit [facility] OPTOMETRY [address] [place] [address] Bette Bryson, OD [address] [place] [address] 02/16/2025 1:00 PM EST Office Visit [facility] MEDICINE [address] [place] [address] Barbie Nova MD [address] [place] [address] 03/13/2025 10:00 AM EST Office Visit [facility] MEDICINE [address] [place] [address] Name, MD Luis Manuel [address] [place] [address] documented as of this encounter Goals Goal [...] documented as of this encounter Care Teams Tar Heater Relationship Specialty Start Date End Date NameLuis Manuel [place] [address] PCP - General Family Medicine 03/25/17 Jennifer Hernandez [place] [address] Pharmacist Internal Medicine 03/17/22 08/23/24 documented as of this encounter
--- OUTSIDE RECORDS SUMMARY | 2024-12-18 15:20 | XMS_ITS | Encounter Summary ---
Author Organization [employer] Address [address] [place] [address] Care Team Providers Care Conservator Artifacts Name Role Phone Name, Luis Manuel VELARDE Primary Care Provider [phone] Jennifer Hernandez PharmD Unavailable Encounter Details Date Type Department Care Team ([facility] st Contact Info) Description 02/24/2022 Abstract [facility] MEDICINE [address] [place] [address] Name, MD Luis Manuel [address] [place] [address] Social History Tobacco Use Types Packs/Day Years [...] Office Visit [facility] OPTOMETRY [address] [place] [address] Bette Bryson OD [address] [place] [address] 02/16/2025 1:00 PM EST Office Visit [facility] MEDICINE [address] [place] [address] Barbie Nova MD [address] [place] [address] 03/13/2025 10:00 AM EST Office Visit [facility] MEDICINE [address] [place], [place] [phone] Name, MD [place] [address] documented as of this encounter Visit Diagnoses Not on filedocumented in this encounter Care Teams Conservator Artifacts Relationship Specialty Start Date End Date Name, [place] [address] PCP - General Family Medicine 03/25/17 Jennifer Hernandez PharmD [address] [place] [address] Pharmacist Internal Medicine 03/17/22 08/23/24 documented as of this encounter
--- OUTSIDE RECORDS SUMMARY | 2024-12-18 15:20 | XMS_ITS | Encounter Summary ---
Author Organization [employer] Address [address] [place] [address] Care Team Providers Care Documentation Writer Name Role Phone Name, Luis Manuel VELARDE Primary Care Provider [phone] Jennifer Hernandez PharmD Unavailable [phone] Reason for Visit * Reason Comments Med Refill Encounter Details Date Type Department Care Team ([facility] st Contact Info) Description 12/23/2022 Refill [facility] MEDICINE [address] [place], [place] [phone] Name, MD Luis Manuel [address] [place] [address] Fear of flying Social History Tobacco Use [...] Description 01/15/2025 10:00 AM EST Office Visit [facility] OPTOMETRY [address] [place] [address] BraydonBette, OD [address] [place] [address] 02/16/2025 1:00 PM EST Office Visit [facility] MEDICINE [address] [place] [address] Barbie Nova MD [address] [place] [address] 03/13/2025 10:00 AM EST Office Visit [facility] MEDICINE [address] [place] [address] Name, MD Luis Manuel [address] [place] [address] documented as of this encounter Goals Goal [...] documented as of this encounter Care Teams Documentation Writer Relationship Specialty Start Date End Date Name, MD Luis Manuel [address] [place] [address] PCP - General Family Medicine 03/25/17 Jennifer Hernandez, Cornelius [address] [place] [address] Pharmacist Internal Medicine 03/17/22 08/23/24 documented as of this encounter
--- OUTSIDE RECORDS SUMMARY | 2024-12-18 15:21 | XMS_ITS | Clinical Summary ---
Author Organization [employer] Address [address] [place] [address] Care Team Providers Care Retail Stock Clerk Name Role Phone Name, Luis Manuel VELARDE Primary Care Provider [phone] Allergies No known active allergies Medications Dextrose, Diabetic Use, (glucose) 1 g chewable tablet use as needed for low blood sugar 019 Active Misc. Devices (Cervical Pillow) miscIndications :Cervical spondylosis,Chr onic neck pain Use daily at bedtime 1 each 023 Active clonazePAM (KlonoPIN) 0.5 MG tabletIndicatio ns:Fear of flying One tab as needed 1/2 hour prior to flight 4 tablet 023 Active pen needle 32G x 4 mm miscIndications :Type 2 diabetes mellitus with other specified complication, unspecified whether intermediate insulin use (HCC) Use 4 times daily for insulin injection 100 each 024 2024 Active amLODIPine (Norvasc) 10 MG tablet TAKE 1 TABLET BY MOUTH EVERY DAY 30 tablet 5 025 Active irbesartan (Avapro) 300 MG tabletIndicatio ns:Essential hypertension TAKE 1 TABLET BY MOUTH EVERY DAY 90 tablet 1 025 Active Continuous Glucose Landscape Crew Member (FreeStyle Rolando 3 [place]) device 1 each Once per day. Use as directed for CGM 1 each 025 Active Continuous Glucose Sensor (FreeStyle Rolando 3 Plus Sensor) misc Apply 1 every 15 days as directed for CGM 2 each 025 Active empagliflozin (Jardiance) 25 MGIndications:T ype 2 diabetes mellitus with other specified complication, unspecified whether intermediate insulin use (HCC) Take 1 tablet (25 mg) by mouth in the morning. 30 tablet 5 025 Active insulin glargine (Lantus SoloStar) 100 UNIT/ML penIndications: Type 2 diabetes mellitus with other specified complication, unspecified whether intermediate insulin use (HCC) Inject 22 Units under the skin at bedtime. 15 mL 5 025 Active Lancets (OneTouch Delica Plus [id number]) mis Use to test blood sugar 4 times daily as directed 100 each 025 Active atorvastatin (Lipitor) 40 MG tabletIndicatio ns:Type 2 diabetes mellitus with other specified complication, unspecified whether intermodal customer service insulin use (HCC) Take 1 tablet (40 mg) by mouth Once per day. 90 tablet 3 025 Active glucose blood (OneTouch Verio) test stripIndication s:Type 2 diabetes mellitus with other specified complication, unspecified whether intermediate insulin use (HCC) Use to test blood sugar 4 time(s) daily as directed 100 each 025 Active escitalopram (Lexapro) 10 MG tabletIndicatio ns:Anxiety disorder, unspecified type TAKE 1 TABLET BY MOUTH EVERY DAY 30 tablet 025 Active tamsulosin (Flomax) 0.4 MG 24 hr capsule TAKE 2 CAPSULES BY MOUTH EVERY DAY 60 capsule 2 025 Active metFORMIN (Glucophage) 500 MG tablet TAKE 1 TABLET BY MOUTH TWICE DAILY IN THE MORNING AND IN THE EVENING WITH MEALS 60 tablet 11 025 Active insulin lispro (HumaLOG) 100 UNIT/ML injectionIndica tions:Type 2 diabetes mellitus with other specified complication, unspecified whether intermodal customer service insulin use (HCC) INJECT 10 UNITS SUBCUTANEOUSLY BEFORE BREAKFAST, 12 UNITS BEFORE LUNCH, AND 16 UNITS BEFORE SUPPER DIRECTED 15 mL 1 025 Active metFORMIN (Glucophage) 500 MG tablet Take 1 tablet (500 mg) by mouth with breakfast and with evening meal. 60 tablet 11 024 2024 Discontinued insulin lispro (HumaLOG) 100 UNIT/ML injectionIndica tions:Type 2 diabetes mellitus with other specified complication, unspecified whether intermodal customer service insulin use (HCC) INJECT 10 UNITS SUBCUTANEOUSLY EVERY DAY BEFORE BREAKFAST, 12 UNITS DAILY BEFORE LUNCH, AND 16 UNITS DAILY BEFORE SUPPER DIRECTED 15 mL 025 2024 Discontinued tamsulosin (Flomax) 0.4 MG 24 hr capsule TAKE 2 CAPSULES BY MOUTH EVERY DAY 60 capsule 2 025 2024 Discontinued escitalopram (Lexapro) 10 MG tabletIndicatio ns:Anxiety disorder, unspecified type TAKE 1 TABLET BY MOUTH EVERY DAY 30 tablet 025 2024 Discontinued Active Problems Problem Noted Date Diagnosed Date Acquired cataract 02/16/2024 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 06/24/2017 Essential hypertension 06/24/2017 Type 2 diabetes mellitus 06/24/2017 Anxiety disorder 02/23/2017 Hearing loss 02/23/2017 Hyperlipidemia associated with type 2 diabetes m adelfo 02/23/2017 Encounters Date Type Department Care Team Description 12/14/2024 Refill [facility] [address] [place], [place] [phone] Name, MD Luis Manuel Type 2 diabetes mellitus with other specified complication, unspecified whether intermediate insulin use (HCC) 12/13/2024 10:45 AM EDT Office Visit [facility] [address] [place] [address] Name, MD Luis Manuel Type 2 diabetes mellitus with stage 3a chronic kidney disease, with long-term current use of insulin (HCC) (Primary Dx) 12/13/2024 Travel 12/13/2024 Refill [facility] [address] [place] [address] Luis Manuel Wall MD 12/06/2024 Orders Only GENERIC EXTERNAL DATA DEPARTMENT Provider, Generic External Data 12/04/2024 Refill [facility] [address] [place] [address] Luis Manuel Wall MD Anxiety disorder, unspecified type 11/21/2024 Telephone [facility] [address] [place] [address] Luis Manuel Wall MD telephone call 11/21/2024 Telephone [facility] [address] [place] [address] [phone] Luis Manuel Wall MD Referral 11/01/2024 Refill [facility] [address] [place], [place] [phone] Luis Manuel Wall MD Anxiety disorder, unspecified type 09/29/2024 Refill [facility] [address] [place], [place] [phone] Luis Manuel Wall MD Anxiety disorder, unspecified type from Last 3 Months Immunizations Immunization Administration [...] Mass Index 27.82 12/13/2024 10:45 AM EDT Plan of Treatment Upcoming Encounters Date Type Department Care Team (Late st Contact Info) Description 01/15/2025 10:00 AM EST Office Visit [facility] [address] [place] [address] Bette Bryson, OD [address] [place] [address] 02/16/2025 1:00 PM EST Office Visit [facility] [address] [place] [address] Barbie Nova MD [address] [place] [address] 03/13/2025 10:00 AM EST Office Visit [facility] [address] [place] [address] Luis Manuel Wall MD [address] [place], [place] [phone] Health Maintenance Due Date Last Done Comments Derm Melanoma Skin Check 1950 Alcohol/Substance Use Screening 1960 Hepatitis C Screening 01/07/1966 Zoster Vaccines (1 of 2) 01/07/1998 RSV Patients and Patients Aged 60 years or older (1 - 1-dose 75+ series) 01/07/2023 Eye Exam 09/21/2024 09/22/2023, 09/12, 09/22/2023, Additional history exists COVID-19 Vaccine ( season) 2024 06/01/2022, 07/29/2021, 03/05/2021, Additional history exists Influenza Vaccine (#1) 2024 Diabetes: Hemoglobin A1C 03/07/20252 025, 08/01/2024, 03/03/2024, Additional history exists Lipid Panel 04/10/2025 04/10/2024, 0310/2023, 02/26/2022, Additional history exists Depression Screening 08/01/2025 08/01/2024, 08/02/19 SDOH Screening 08/01/2025 08/01/2024 Diabetes: Foot Exam 12/13/2025 12/13/2024, 12/13/2024, 12/13/2024, Additional history exists Tobacco Screening 12/13/2025 12/13/2024 DTaP/Tdap/Td Vaccines (2 - Td or Tdap) [...] Procedure Name Priority Date/Time Associated Diagnosis Comments US RETROPERITONEAL COMPLETE Routine 12/18/2024 1:33 PM EDT POCT GLUCOSE Routine 12/13/2024 10:46 AM EDT Type 2 diabetes mellitus with stage 3a chronic kidney disease, with long-term current use of insulin (HCC) HEMOGLOBIN A1C Routine 12/06/2024 11:23 AM EDT PSA, TOTAL Routine 12/06/2024 11:23 AM EDT LIPID PANEL, STANDARD Routine 04/10/2024 8:10 AM EST Type 2 diabetes mellitus with other specified complication, unspecified whether intermodal customer service insulin use (CMS/HCC) Prostatism Essential hypertension Hyperlipidemia associated with type 2 diabetes mellitus (CMS/HCC) (CMS/HCC) from Last 3 Months or Most Recently Relevant to Health Maintenance Results * US Retroperitoneal Complete (12/18/2024 1:33 PM EDT) Anatomical Region Laterality Modality Ultrasound 12/18/2024 1:33 PM EDT Narrative 12/18/2024 2:11 PM EDT [place] [id number] Ultrasound Report Signed Patient: Dg Meza MR#: [id number] : 1950 Acct:[id number] Age/Sex: 74 / M ADM Date: 12/18/24 Loc: HO.US Attending Dr: Caren RAMAN Ordering Physician: Caren Gambino Date of Service: 12/18/24 Procedure(s): US retroperitoneal comp Accession Number(s): [id number] cc: Caren Gambino; Name,Luis Manuel VELARDE Reason for Exam: R35.1 - Nocturia EXAMINATION: US RETROPERITONEAL COMPLETE (RENAL) CLINICAL INFORMATION: Nocturia. COMPARISON: Renal ultrasound 03/25/2020. TECHNIQUE: Real-time imaging of the kidneys and bladder. FINDINGS: RIGHT KIDNEY: 11.1 x 5.3 x 6.1 cm (SAG x AP x TRV). The kidney is normal in size, contour, and echogenicity. Renal cortical thickness is normal. No calculi or focal parenchymal lesions. No hydronephrosis. There is a mid pole simple cyst measuring 3 mm. LEFT KIDNEY: 10.6 x 4.5 x 4.5 cm (SAG x AP x TRV). The kidney is normal in size, contour, and echogenicity. Renal cortical thickness is normal. No focal parenchymal lesions. No hydronephrosis. There is a nonobstructing 5 mm calculus in the mid to lower pole. BLADDER: Well-distended. The wall is mildly thickened and trabeculated suggesting chronic outlet obstruction versus neurogenic bladder. Bilateral ureteral jets are demonstrated. Prevoid bladder volume is 178 mL. Postvoid bladder volume is 67 mL. (Postvoid residual = 38%) Prostate volume is estimated at 43 mL. US/US retroperitoneal comp IMPRESSION: 1. Nonobstructing 5 mm calculus in the left kidney mid to lower pole. 2. No hydronephrosis of either kidney. 3. Bladder demonstrates mild wall thickening and trabeculation, suggesting chronic outlet obstruction versus neurogenic bladder. 38% post void residual is present. Normal ureteral jets. 4. Prostate is moderately enlarged at 43 mL estimated. Electronically signed by: Chadd Chapa MD 12/18/2024 02:08 PM EDT RP Dictated By: Chadd Chapa MD Signed By: <Electronically signed by Chadd Chapa MD in [place]> 12/18/24 1408 DD/ 1333 TD/TT: 12/18/24 1355 Golf Cart Repairer: Procedure Note Donotuseinterpreter, Image - 12/18/2024 [place] [address] Ultrasound Report Signed Patient: Dg MezaMR#: [id number] : 8Acct:[id number] Age/Sex: 74 / MADM Date: 12/18/24 Loc: HO.US Attending Dr: Caren RAMAN Ordering Physician: Caren Gambino Date of Service: 12/18/24 Procedure(s): US retroperitoneal comp Accession Number(s): [id number] cc: Caren Gambino; Name,Luis Manuel VELARDE Reason for Exam: R35.1 - Nocturia EXAMINATION: US RETROPERITONEAL COMPLETE (RENAL) CLINICAL INFORMATION: Nocturia. COMPARISON: Renal ultrasound 03/25/2020. TECHNIQUE: Real-time imaging of the kidneys and bladder. FINDINGS: RIGHT KIDNEY: 11.1 x 5.3 x 6.1 cm (SAG x AP x TRV). The kidney is normal in size, contour, and echogenicity. Renal cortical thickness is normal. No calculi or focal parenchymal lesions. No hydronephrosis. There is a mid pole simple cyst measuring 3 mm. LEFT KIDNEY: 10.6 x 4.5 x 4.5 cm (SAG x AP x TRV). The kidney is normal in size, contour, and echogenicity. Renal cortical thickness is normal. No focal parenchymal lesions. No hydronephrosis. There is a nonobstructing 5 mm calculus in the mid to lower pole. BLADDER: Well-distended. The wall is mildly thickened and trabeculated suggesting chronic outlet obstruction versus neurogenic bladder. Bilateral ureteral jets are demonstrated. Prevoid bladder volume is 178 mL. Postvoid bladder volume is 67 mL. (Postvoid residual = 38%) Prostate volume is estimated at 43 mL. US/US retroperitoneal comp IMPRESSION: 1. Nonobstructing 5 mm calculus in the left kidney mid to lower pole. 2. No hydronephrosis of either kidney. 3. Bladder demonstrates mild wall thickening and trabeculation, suggesting chronic outlet obstruction versus neurogenic bladder. 38% post void residual is present. Normal ureteral jets. 4. Prostate is moderately enlarged at 43 mL estimated. Electronically signed by: Chadd Chapa MD 12/18/2024 02:08 PM EDT Dictated By: Chadd Chapa MD Signed By: <Electronically signed by Chadd Chapa MD in [place]> 12/18/24 1408 DD/ 1333 TD/TT: 12/18/24 1355 Golf Cart Repairer: [facility] External Provider IMG US PROCEDURES Final Result * (ABNORMAL) POCT Glucose (12/13/2024 10:46 AM EDT) Glucose Blood, POC 312(A) 60 - 200 mg/dL QC Media Lot # [id number] Lot# Expiration Date Blood Capillary blood specimen / Unknown 12/13/2024 10:46 AM EDT Luis Manuel Name MD POINT OF CARE TEST ENTER/EDIT OR DERABLES Final Result * PSA,Total (12/06/2024 11:23 AM EDT) Prostate Specific Antigen 2.03 <0.05 - 4.0 ng/mL [facility] Comment:PSA methodology: Missy chang Alijenellety i ChemiluminescentMicroparticle Immunoassay (CMIA) 12/06/2024 11:2 3 AM EDT 12/06/2024 11:23 AM EDT Generic External Data Provider LAB BLOOD ORDERAB LES Final Result Performing Organization Address [facility] Co de Phone Number [facility] [address] [place] [phone] * (ABNORMAL) Hemoglobin A1c (12/06/2024 11:23 AM EDT) Hemoglobin A1c 8.7(H) <6.0 % [facility] Comment:Hemoglobin A1C Refer ence Range Adults: 4.8 - 6.0 % Non diabetic: < 6.0 % Goal: < 7.0 %Additional Action Suggested: > 8.0 %Note: Hemoglobin A1c results are invalid for patients with abnormal amounts of HbF. Blood transfusions may impact the HbA1c concentration in the patient sample. Estimated Average Glucose 203 mg/dL [facility] Comment:eAG = Estimated ave rage glucose which is %A1C expressed asaverage glucose, using the formula of the [id number] Glucose study (ADAG), Diabetes Care, Vol.31,#8,Oct. 2007 12/06/2024 11:2 3 AM EDT 12/06/2024 11:23 AM EDT Generic External Data Provider LAB BLOOD ORDERAB LES Final Result Performing Organization Address [facility] Co de Phone Number [facility] [address] [place] [phone] * (ABNORMAL) Lipid Panel, Standard (04/10/2024 8:10 AM EST) Triglycerides 156(H) <150 mg/dL [facility] Comment:Desirable Triglyceri de: less than 150 mg/dLBorderline High Triglyceride 150-199 mg/dLHigh Triglyceride: 200-499 mg/dLVery High Triglyceride: greater than or equal to 5OO mg/dL Cholesterol 117 <200 mg/dL [facility] Comment:Desirable Cholestero l: less than 200 mg/dLBorderline High Cholesterol: 200-239 mg/dLHigh Cholesterol: greater than 239 mg/dL LDL Cholesterol Calculated 49 <100 mg/dL [facility] Comment:Desirable LDL: less than 100 mg/dLNear Optimal/Above Optimal LDL: 110- 129 mg/dLBorderline High LDL: 130-159 mg/dLHigh LDL: 160-189 mg/dLVery High LDL: greater than or equal to 190 mg/dL HDL Cholesterol 37(L) >40 mg/dL [facility] Comment:Desirable HDL: great er than 40 mg/dL Note: This HDL assay may give artificially low results in patients with liver disease. Blood Venous blood specimen / Unknown 04/10/2024 8:10 AM EST 04/10/2024 11:25 AM EST us Luis Manuel Wall MD LAB BLOOD ORDERABLES Final Resul t [facility] [address] [place] [phone] from Last 3 Months or Most Recently Relevant to Health Maintenance Insurance [facility] DUAL COMPLETE [facility] STANDARD Care Teams Retail Stock Clerk Relationship Specialty Start Date End Date Name, MD Luis Manuel [address] [place] [address] PCP - General Family Medicine 03/25/17
--- OUTSIDE RECORDS SUMMARY | 2024-12-18 15:21 | XMS_ITS | Encounter Summary ---
Author Organization [employer] [facility] Address [address] [place] [address] Care Team Providers Care Billing And Quality Technician Name Role Phone Name, Luis Manuel VELARDE Primary Care Provider [phone] Jennifer Hernandez PharmD Unavailable [phone] Reason for Visit * Reason Comments Med Refill Encounter Details Date Type Department Care Team (Late Contact Info) Description 09/09/2022 Refill [facility] [address] [place] [address] Name, MD Luis Manuel [address] [place] [address] Anxiety disorder, unspecified type Social History Tobacco [...] Description 01/15/2025 10:00 AM EST Office Visit [facility] [address] [place], [place] [phone] Bette Bryson, OD [address] [place] [address] 02/16/2025 1:00 PM EST Office Visit [facility] [address] [place] [address] Barbie Nova MD [address] [place] [address] 03/13/2025 10:00 AM EST Office Visit [facility] [address] [place] [address] Name, MD Luis Manuel [address] [place] [address] documented as of this encounter Goals Goal [...] documented as of this encounter Care Teams Billing And Quality Technician Relationship Specialty Start Date End Date Name, [place] [address] PCP - General Family Medicine 03/25/17 Jennifer Hernandez PharmD [address] [place] [phone] Pharmacist Internal Medicine 03/17/22 08/23/24 documented as of this encounter
== END 2024-12-18 13:00 | disposition home or self-care (01) ==
LOC: HO.US 12:59
PROVIDERS: PCP Internal Medicine Geriatric Medicine; Visit Provider Nurse Practitioner Family
DX: R35.1 Nocturia (principal)
CPT/HCPCS: 76770

== ENCOUNTER → 2024-12-18 13:01 | Outpatient (BNV) | payer OTHER, SELFPAY | PROVIDERS: PCP Internal Medicine Geriatric Medicine; Visit Provider Radiology Diagnostic Radiology | DX: N20.0 Calculus of kidney (principal); N40.0 Benign prostatic hyperplasia without lower urinary tract symptoms | CPT/HCPCS: 76770 ==

== ENCOUNTER 2025-01-01 09:31 | Outpatient (AMB) | payer OTHER, SELFPAY ==
--- NOTE | 2025-01-01 09:46 | A.OFFVIS_ITS ---
Intake Visit Reasons: 2m/US/PSA Intake Note: patient presents today for: 2m/US/PSA urology medications: none blood thinners: none AIC 8.7 PSA 2.03 imagning merissa: 12/18/24 today's PVR: 100mls Composition Stone Applicator Required: Yes Composition Stone Applicator Name: [id number] Accompanied by: Spouse Allergies No Known Allergies (No Known Allergies*) Allergy (Verified 01/01/25 10:40) Medication List - Last Reconciled 01/01/25 by CHRISTINE Jerez- atorvastatin 40 mg PO DAILY bisacodyl (Dulcolax (bisacodyl)) 5 mg PO BEDTIME escitalopram oxalate 10 mg PO DAILY finasteride 5 mg PO DAILY 90 days hydrochlorothiazide 25 mg PO DAILY insulin admin supplies (InPen (for Humalog) subcutaneous) As directed insulin glargine (Lantus U-100 Insulin) 20 units subcut QPM irbesartan 300 mg PO DAILY ketotifen fumarate 0.025%(0.035%) (Allergy Eye (ketotifen)) 1 drp ophthalmic (eye) BID metformin 1,000 mg PO DAILY tamsulosin 0.8 mg PO BEDTIME tizanidine 2 mg PO Q8H PRN 30 days HPI Comments Details: Dg is a 74-year-old Kinyarwanda-speaking male patient of Dr. Wall. He has a past medical history of hyperlipidemia, diabetes, chronic kidney disease, anxiety, and hypertension. He presents to the office today for follow-up. Of note, patient was seen approximately 2 months ago as a new patient for ongoing lower urinary tract symptoms he is experiencing as well as Peyronie's disease (left dorsal) he has been experiencing at which time a retroperitoneal ultrasound and PSA were ordered for further assessment evaluation. These results were reviewed and communicated with the patient today. 01/06 bilateral kidneys are normal in size, contour, and echogenicity. There is a nonobstructing 5 mm calculus in the mid to lower pole of the left kidney. The bladder is well distended. No hydronephrosis noted bilaterally. There is mildly thickened and trabeculated bladder wall. Postvoid bladder volume 67 mL. The prostate measures 43 mL. PSAs are as follows: 12/06 2.9, 12/07 2.0 During last office visit we discussed further treatment options of Peyronie's disease. Information was provided. He discusses his main concern is his ongoing lower urinary tract symptoms. However he does feel symptoms have somewhat improved with initiation of tamsulosin by his PCP. We did discuss bladder wall thickening, nephrolithiasis, mildly enlarged prostate, and bladder wall trabeculations and thickening. This was discussed at length. We did discussed further treatment options of these urological conditions and risks and benefits of these treatment options. All questions were answered. He denies hematuria, dysuria, foul smelling urine, flank pain, fever, and or chills. We discussed importance of management and diabetes for improvement in urological conditions as well as overall health and well-being. In office urinalysis results reviewed with the patient today. PVR 100 mL. He otherwise offers no other issues or concerns at this time. [facility] Medical History Hyperlipidemia S/P angiogram of extremity (~12/2019) Diabetic autonomic neuropathy Chronic kidney disease Hyperglycemia Anxiety Diabetes Hypertension Surgical History History of esophagogastroduodenoscopy (EGD) Hx of colonoscopy Hx of hand surgery Family History Father No problems noted. Mother No problems noted. Social History Alcohol intake: current Alcohol intake frequency: does not drink Patient Tobacco Use Status: Former Tobacco user Years Smoked: 35 Review of Systems Const All systems reviewed & are unremarkable except as noted in HPI and below Physical Exam Const General: cooperative, healthy appearing, comfortable, no acute distress, well developed, alert and awake Orientation/consciousness: patient oriented x3 Limitations: language barrier HEENT Head: Yes normal to inspection, Yes normocephalic and Yes atraumatic Ears: hearing grossly normal bilaterally Eyes General: appearance normal, both eyes and all related structures Neck Neck: Yes normal visual inspection and Yes trachea midline Chest Chest palpation & inspection: normal inspection of the chest Resp Effort & Inspection: normal respiratory effort and able to speak in complete sentences Cardio Rate: regular rate GI Inspection: Yes normal to inspection General: Yes no CVA tenderness Back/Spine/Pelvis Back: no CVA tenderness Skin General skin exam: no rashes or lesions noted Neuro General: patient oriented x3 Extrem General: Yes normal to inspection Psych Appearance: grossly normal and well kempt Mental Status: mental status grossly normal Speech and movement: Normal speech and movement present and Clear speech present Affect: normal affect Attitude: cooperative Thought process: Normal thought process present Thought content: Normal thought content present Insight: Fair insight present (Psych) Judgement: Fair judgement present (Psych) Office Procedures Post Void Residual Post Residual Void Post Void Residual (PVR): 100 [id number] Void Residual by ultrasound Results AMB Urinalysis, Automated UA Leukoctes 0 Rachna/uL Last Edit by MIKE Ortiz on 01/01/25 13:32 UA Nitrite Last Edit by MIKE Ortiz on 01/01/25 13:32 UA Urobilinogen 0.2 mg/dL Last Edit by MIKE Ortiz on 01/01/25 13:3 2 UA Protein 15 mg/dL Last Edit by MIKE Ortiz on 01/01/25 13:32 UA pH 6.0 Last Edit by MIKE Ortiz on 01/01/25 13:32 UA Blood 0 Lucio/uL Last Edit by MIKE Ortiz on 01/01/25 13:32 UA Specific [place] 1.010 Last Edit by MIKE Ortiz on 01/01/25 13: 32 UA Ketone Last Edit by MIKE Ortiz on 01/01/25 13:32 UA Bilirubin 0 mg/dL Last Edit by MIKE Ortiz on 01/01/25 13:32 UA Glucose 1000 mg/dL Last Edit by MIKE Ortiz on 01/01/25 13:32 Results Reviewed Results Reviewed: Laboratory Last Values Urine pH (Auto) 6.0 01/01/25 13:31 Specific [place] (Auto) 1.010 01/01/25 13:31 Urine Protein (Auto) 15 mg/dL 01/01/25 13:31 Glucose (UA)(Auto) 1000 mg/dL 01/01/25 13:31 Urine Blood (Auto) 0 Lucio/uL 01/01/25 13:31 Urine Bilirubin (Auto) 0 mg/dL 01/01/25 13:31 Urine Urobilinogen (Auto) 0.2 mg/dL 01/01/25 13:31 Leukocyte Esterase (Auto) 0 Rachna/uL 01/01/25 13:31 Date of Service: 12/18/24 Procedure(s): US retroperitoneal comp FINDINGS: RIGHT KIDNEY: 11.1 x 5.3 x 6.1 cm (SAG x AP x TRV). The kidney is normal in size, contour, and echogenicity. Renal cortical thickness is normal. No calculi or focal parenchymal lesions. No hydronephrosis. There is a mid pole simple cyst measuring 3 mm. LEFT KIDNEY: 10.6 x 4.5 x 4.5 cm (SAG x AP x TRV). The kidney is normal in size, contour, and echogenicity. Renal cortical thickness is normal. No focal parenchymal lesions. No hydronephrosis. There is a nonobstructing 5 mm calculus in the mid to lower pole. BLADDER: Well-distended. The wall is mildly thickened and trabeculated suggesting chronic outlet obstruction versus neurogenic bladder. Bilateral ureteral jets are demonstrated. Prevoid bladder volume is 178 mL. Postvoid bladder volume is 67 mL. (Postvoid residual = 38%) Prostate volume is estimated at 43 mL. IMPRESSION: 1. Nonobstructing 5 mm calculus in the left kidney mid to lower pole. 2. No hydronephrosis of either kidney. 3. Bladder demonstrates mild wall thickening and trabeculation, suggesting chronic outlet obstruction versus neurogenic bladder. 38% post void residual is present. Normal ureteral jets. 4. Prostate is moderately enlarged at 43 mL estimated. Assessment & Plan Assessment & Plan (1) Nocturia: Code(s): R35.1 - Nocturia Category: Medical (2) History of urinary hesitancy: Code(s): Z87.898 - Personal history of other specified conditions Category: Medical (3) Peyronie's disease: Comment: Medications for 6 months Code(s): N48.6 - Induration penis plastica Category: Medical (4) BPH (benign prostatic hyperplasia): Code(s): N40.0 - Benign prostatic hyperplasia without lower urinary tract symptoms Category: Medical (5) Enlarged prostate: Code(s): N40.0 - Benign prostatic hyperplasia without lower urinary tract symptoms Category: Medical (6) Bladder wall thickening: Code(s): N32.89 - Other specified disorders of bladder Category: Medical (7) Bladder trabeculation: Code(s): N32.89 - Other specified disorders of bladder Category: Medical Plan In office urinalysis results reviewed with the patient today; as noted above. PVR 100 mL Recent PSA results with the patient today; as noted above. Recent retroperitoneal ultrasound results reviewed the patient today; as noted above. Continue Flomax. We discussed at length Peyronie's disease, bladder trabeculations, bladder wall thickening, and enlarged prostate. We discussed further treatment options of these urological conditions and risks and benefits of these treatment options. All questions were answered. Start finasteride as discussed and prescribed. We discussed healthy bathroom behaviors. We discussed the importance of management and diabetes for improvement in urological health as well as overall health and well-being Follow-up in 3-6 months with PVR; or sooner with any issues, concerns, and or questions. Orders: Orders AMB Post Void Residual by ultrasound Today N40.0 - Benign prostatic hyperplasia without lower urinary tract symptoms AMB Urinalysis Automated Today Z13.9 - Encounter for screening, unspecified Medications: New finasteride 5 mg PO DAILY 90 tabs 1RF 90 days N40.1 - Benign prostatic hyperplasia with lower urinary tract symptoms, R33.9 - Retention of urine, unspecified Patient Instructions: The patient had an opportunity to ask questions regarding the treatment plan. All questions were answered. Physical exam, labs, and imaging were discussed and reviewed in detail. As well as risks, benefits, and discussion of treatment choices. No major barriers to understanding were identified. The patient expressed understanding and agreement with the above treatment plan. The patient was made aware they should contact our office by phone for worsening of their current condition, the appearance of new symptoms, or with any quest ions or concerns. Compliance is encouraged with any medications and follow up testing that is ordered. It is a privilege to be allowed the opportunity to participate in? your urological care.? Again, if you have any questions or concerns If you have any questions or concerns please do not hesitate to contact me. The office is [phone]. This note is constructed using voice recognition software. While every effort has been made to ensure accuracy electrification adviser errors may have been included. Yours sincerely, LAMINE Jerez Coding Level of Care Code Est Pt Level 4 (55837) Complex EM visit Add On G2211 Diagnoses Nocturia R35.1 History of urinary hesitancy Z87.898 Peyronie's disease N48.6 BPH (benign prostatic hyperplasia) N40.0 Enlarged prostate N40.0 Bladder wall thickening N32.89 Bladder trabeculation N32.89 CPT Codes Post Residual Void - PVR CPT Code: 47736-[id number] Void Residual by ultrasound ([id number])
--- OUTSIDE RECORDS SUMMARY | 2025-01-01 10:42 | XMS_ITS | Encounter Summary ---
Author Organization [employer] Address [address] [place] [address] Care Team Providers Care Therapist Respiratory Name Role Phone Name, Luis Manuel VELARDE Primary Care Provider [phone] Jennifer Hernandez PharmD Unavailable Reason for Visit * Reason Comments Med Refill Encounter Details Date Type Department Care Team ([facility] st Contact Info) Description 03/02/2022 Refill [facility] [address] [place] [address] Name, MD Luis Manuel [address] [place] [address] Social History Tobacco Use Types Packs/Day Years [...] Description 01/15/2025 10:00 AM EST Office Visit [facility] [address] [place] [address] Braydon, Bette, OD [address] [place] [address] 02/16/2025 1:00 PM EST Office Visit [facility] [address] [place] [address] Barbie Nova MD [address] [place] [address] 03/13/2025 10:00 AM EST Office Visit [facility] [address] [place] [address] Name, MD Luis Manuel [address] [place] [address] documented as of this encounter Visit Diagnoses Not on filedocumented in this encounter Additional Health Concerns Assessment Noted Time PHQ-9 Depression Total Score: 0 02/26/20 22 3:35 PM EST documented as of this encounter Care Teams Therapist Respiratory Relationship Specialty Start Date End Date Name, MD Luis Manuel [address] [place] [id number] PCP - General Family Medicine 03/25/17 Jennifer Hernandez PharmD [address] [place] [address] Pharmacist Internal Medicine 03/17/22 08/23/24 documented as of this encounter
--- OUTSIDE RECORDS SUMMARY | 2025-01-01 10:42 | XMS_ITS | Encounter Summary ---
Author Organization [facility] Address [address] [place] [address] Care Team Providers Care Test Consultant Name Role Phone Name, Luis Manuel VELARDE Primary Care Provider [phone] Jennifer Hernandez PharmD Unavailable [phone] Encounter Details Date Type Department Care Team ([facility] Contact Info) Description 03/02/2022 Orders Only [facility] [address] [place] [address] Nohemy Diaz LPN Social History Tobacco Use [...] Description 01/15/2025 10:00 AM EST Office Visit [facility] [address] [place] [address] Braydon, Bette, OD [address] [place] [address] 02/16/2025 1:00 PM EST Office Visit [facility] [address] [place] [address] Barbie Nova MD [address] [place] [address] 03/13/2025 10:00 AM EST Office Visit [address] [address] Name, MD Luis Manuel [address] [place] [address] documented as of this encounter Visit Diagnoses Not on filedocumented in this encounter Additional Health Concerns Assessment Noted Time PHQ-9 Depression Total Score: 0 02/26/20 22 3:35 PM EST documented as of this encounter Care Teams Test Consultant Relationship Specialty Start Date End Date Name, MD Luis Manuel [address] [place] [address] PCP - General Family Medicine 03/25/17 Jennifer Hernandez, AnjelicaD [address] [place] [address] Pharmacist Internal Medicine 03/17/22 08/23/24 documented as of this encounter
--- OUTSIDE RECORDS SUMMARY | 2025-01-01 10:42 | XMS_ITS | Encounter Summary ---
Author Organization [employer] Address [address] [place] [address] Care Team Providers Care Contact Officer Name Role Phone Name, Luis Manuel VELARDE Primary Care Provider [phone] Jennifer Hernandez PharmD Unavailable [phone] Reason for Visit * Reason Comments Med Refill Encounter Details Date Type Department Care Team ([facility] st Contact Info) Description 12/23/2022 Refill [facility] [address] [place], [place] [phone] Name, MD Luis Manuel [address] [place] [address] Fear of flying Social History Tobacco Use [...] Description 01/15/2025 10:00 AM EST Office Visit [facility] [address] [place] [address] BraydonBette, OD [address] [place] [address] 02/16/2025 1:00 PM EST Office Visit [facility] [address] [place] [address] Barbie Nova MD [address] [place] [address] 03/13/2025 10:00 AM EST Office Visit [facility] [address] [place] [address] Name, MD Luis Manuel [address] [place] [address] documented as of this encounter Goals Goal [...] documented as of this encounter Care Teams Contact Officer Relationship Specialty Start Date End Date Name, MD Luis Manuel [address] [place] [address] PCP - General Family Medicine 03/25/17 Jennifer Hernandez, Cornelius [address] [place] [address] Pharmacist Internal Medicine 03/17/22 08/23/24 documented as of this encounter
--- OUTSIDE RECORDS SUMMARY | 2025-01-01 10:42 | XMS_ITS | Encounter Summary ---
Author Organization [employer] Address [address] [place] [address] Care Team Providers Care Tower Air Traffic Control Specialist Name Role Phone Name, Luis Manuel VELARDE Primary Care Provider [phone] Jennifer Hernandez PharmD Unavailable [phone] Reason for Visit * Reason Onset Date Comments Pre Op 02/22/2024 Encounter Details Date Type Department Care Team ([facility] st Contact Info) Description 02/22/2024 Telephone [facility] [address] [place] [address] Name, MD Luis Manuel [address] [place] [address] Pre Op Social History Tobacco Use Types [...] MD Facility name: [facility] Surgeon's office number: [phone] ext [facility] Surgeon's office fax number: [phone] Contact name (person you spoke with): Maday Newman office note from surgeon requested: Yes Send Message to Sayda Guzman and Yasir Coley Requested to contact office instead of pt. documented in this encounter Plan of Treatment Upcoming Encounters Date Type Department Care Team (Late st Contact Info) Description 01/15/2025 10:00 AM EST Office Visit [facility] [address] [place] [address] Bette Bryson, OD [address] [place] [address] 02/16/2025 1:00 PM EST Office Visit [facility] [address] [place] [address] Barbie Nova MD [address] [place] [address] 03/13/2025 10:00 AM EST Office Visit [facility] [address] [place] [address] Name, MD Luis Manuel [address] [place] [address] documented as of this encounter Goals Goal [...] documented as of this encounter Care Teams Tower Air Traffic Control Specialist Relationship Specialty Start Date End Date NameLuis [place] [address] PCP - General Family Medicine 03/25/17 Jennifer Hernandez [place] [address] Pharmacist Internal Medicine 03/17/22 08/23/24 documented as of this encounter
--- OUTSIDE RECORDS SUMMARY | 2025-01-01 10:42 | XMS_ITS | Encounter Summary ---
Author Organization [employer] Address [address] [facility] [place] [address] Care Team Providers Care Communications Associate Name Role Phone Name, Luis Manuel VELARDE Primary Care Provider [phone] Jennifer Hernandez PharmD Unavailable [phone] Encounter Details Date Type Department Care Team ([facility] st Contact Info) Description 02/24/2022 Abstract [facility] [address] [place] [address] Name, MD Luis Manuel [address] [place] [address] Social History Tobacco Use Types Packs/Day Years [...] Description 01/15/2025 10:00 AM EST Office Visit [facility] [address] [place] [address] Bette Bryson OD [address] [place] [address] 02/16/2025 1:00 PM EST Office Visit [facility] [address] [place] [address] Barbie Nova MD [address] [place] [address] 03/13/2025 10:00 AM EST Office Visit [facility] [address] [place], [place] [phone] Name, MD [place] [address] documented as of this encounter Visit Diagnoses Not on filedocumented in this encounter Care Teams Communications Associate Relationship Specialty Start Date End Date Name, [place] [address] PCP - General Family Medicine 03/25/17 Jennifer Hernandez PharmD [address] [place] [address] Pharmacist Internal Medicine 03/17/22 08/23/24 documented as of this encounter
--- OUTSIDE RECORDS SUMMARY | 2025-01-01 10:42 | XMS_ITS | Clinical Summary ---
Author Organization [facility] Address [address] [place] [address] Care Team Providers Care Pulp Press Tender Name Role Phone Name, Luis Manuel Primary Care Provider [phone] Allergies No known active allergies Medications acetaminophen [...] Plan of Treatment Not on file Insurance [facility] [employer] Care Teams Pulp Press Tender Relationship Specialty Start Date End Date Name, Luis Manuel [address] [place] [address] PCP - General Internal Medicine 01/17/21
--- OUTSIDE RECORDS SUMMARY | 2025-01-01 10:43 | XMS_ITS | Clinical Summary ---
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 Use as directed for CGM 1 each 025 Active Continuous Glucose Sensor (FreeStyle Rolando 3 Plus Sensor) misc Apply 1 every 15 days as directed for CGM 2 each 025 Active empagliflozin (Jardiance) 25 MGIndications:T ype 2 diabetes mellitus with other specified complication, unspecified whether jail insulin use (HCC) Take 1 tablet (25 mg) by mouth in the morning. 30 tablet 5 025 Active insulin glargine (Lantus SoloStar) 100 UNIT/ML penIndications: Type 2 diabetes mellitus with other specified complication, unspecified whether long distance billing operator insulin use (HCC) Inject 22 Units under the skin at bedtime. 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 insulin use (HCC) INJECT 10 UNITS SUBCUTANEOUSLY [...] diabetes mellitus 02/16/2024 Overview (02/16/2024): Follows and [facility] Essential tremor 02/25/2022 Overview [...] Type Department Care Team Description 12/14/2024 Refill [facility] [address] [place], [place] [phone] Name, MD Luis Manuel Type 2 diabetes mellitus with other specified complication, unspecified whether jail insulin use (HCC) 12/13/2024 10:45 AM EDT Office Visit [facility] [address] [place] [address] Name, MD Luis Manuel Type 2 diabetes mellitus with stage 3a chronic kidney disease, with long-term current use of insulin (HCC) (Primary Dx) 12/13/2024 Travel 12/13/2024 Refill [facility] [address] [place] [address] Luis Manuel Wall MD 12/06/2024 Orders Only GENERIC EXTERNAL DATA DEPARTMENT Provider, Generic External Data 12/04/2024 Refill [facility] [address] [place] [address] Luis Manuel Wall MD Anxiety disorder, unspecified type 11/21/2024 Telephone [facility] [address] [place] [address] Luis Manuel Wall MD telephone call 11/21/2024 Telephone [facility] [address] [place], [place] [phone] Luis Manuel Wall MD Referral 11/01/2024 Refill [facility] [address] [place], [place] [phone] Luis Manuel Wall MD Anxiety disorder, unspecified [...] Description 01/15/2025 10:00 AM EST Office Visit [facility] [address] [place] [address] Braydon, Bette, OD [address] [place] [address] 02/16/2025 1:00 PM EST Office Visit [facility] [address] [place] [phone] Barbie Nova MD [address] [place], [place] [phone] 03/13/2025 10:00 AM EST Office Visit [facility] [address] [place], [place] [phone] Name, MD Luis Manuel [address] [place] [address] Health Maintenance Due Date Last Done Comments [...] history exists Depression Screening 08/01/2025 08/01/2024, 08/02/19 25 SDOH Screening 08/01/2025 08/01/2024 Diabetes: Foot Exam [...] mellitus with other specified complication, unspecified whether long distance billing operator insulin use (CMS/HCC) Prostatism Essential hypertension Hyperlipidemia associated with type 2 diabetes mellitus (CMS/HCC) ([facility]) from Last 3 Months or Most Recently Relevant to Health Maintenance Results * US Retroperitoneal Complete (12/18/2024 1:33 PM EDT) Anatomical Region Laterality Modality Ultrasound 12/18/2024 1:33 PM EDT Narrative 12/18/2024 2:11 PM EDT [place] [address] Ultrasound Report Signed Patient: Dg Meza MR#: [id number] : 1950 Acct:[id number] Age/Sex: 74 / M ADM Date: 12/18/24 Loc: HO.US Attending Dr: Caren RAMAN Ordering Physician: Caren Gambino Date of Service: 12/18/24 Procedure(s): US retroperitoneal comp Accession Number(s): [id number] cc: Caren Gambino; Name,Luis Manuel VELARDE Reason [...] 12/18/24 1408 DD/ 1333 TD/TT: 12/18/24 1355 Auditing Specialist: Procedure Note Donotuseinterpreter, Image - 12/18/2024 [place] [address] Ultrasound Report Signed Patient: Dg Meza#: [id number] : [id number]:[id number] Age/Sex: 74 / MADM Date: 12/18/24 Loc: HO.US Attending Dr: Caren RAMAN Ordering Physician: Caren Gambino Date of Service: 12/18/24 Procedure(s): US retroperitoneal comp Accession Number(s): [id number] cc: Caren Gambino; Name,Luis Manuel VELARDE Reason [...] 12/18/24 1408 DD/ 1333 TD/TT: 12/18/24 1355 Auditing Specialist: [facility] External Provider IMG US PROCEDURES Final Result * (ABNORMAL) POCT Glucose (12/13/2024 10:46 AM EDT) Glucose Blood, POC 312(A) 60 - 200 mg/dL QC Media Lot # [id number] Lot# Expiration Date Blood Capillary blood specimen / Unknown 12/13/2024 10:46 AM EDT Luis Manuel Wall MD POINT OF CARE TEST ENTER/EDIT OR DERABLES Final Result * PSA,Total (12/06/2024 11:23 AM EDT) Prostate Specific Antigen 2.03 <0.05 - 4.0 ng/mL [facility] Comment:PSA methodology: Abb charlene Alisondra i ChemiluminescentMicroparticle Immunoassay (CMIA) 12/06/2024 11:2 3 AM EDT 12/06/2024 11:23 AM EDT us Generic External Data Provider LAB BLOOD ORDERAB LES Final Result Performing Organization Address City/[facility]/ZIP Co de Phone Number [facility] [address] [place] [phone] * (ABNORMAL) Hemoglobin A1c (12/06/2024 11:23 AM EDT) Hemoglobin A1c 8.7(H) <6.0 % [facility] Comment:Hemoglobin A1C Refer ence Range Adults: 4.8 - 6.0 % Non diabetic: < 6.0 % Goal: < 7.0 %Additional Action Suggested: > 8.0 %Note: Hemoglobin A1c results are invalid for patients with abnormal amounts of HbF. Blood transfusions may impact the HbA1c concentration in the patient sample. Estimated Average Glucose 203 mg/dL [facility] Comment:eAG = Estimated ave rage glucose which is %A1C expressed asaverage glucose, using the formula of the W9B-SqfsqkiIyqkzgv Glucose study (ADAG), Diabetes Care, Vol.31,#8,Oct. 2007 12/06/2024 11:2 3 AM EDT 12/06/2024 11:23 AM EDT us Generic External Data Provider LAB BLOOD ORDERAB LES Final Result Performing Organization Address [facility]/ZIP Co de Phone Number [facility] [address] [place] [phone] * (ABNORMAL) Lipid Panel, Standard (04/10/2024 8:10 AM EST) Triglycerides 156(H) <150 mg/dL [facility] Comment:Desirable Triglyceri de: less than 150 mg/dLBorderline High Triglyceride 150-199 mg/dLHigh Triglyceride: 200-499 mg/dLVery High Triglyceride: greater than or equal to 5OO mg/dL Cholesterol 117 <200 mg/dL [facility] Comment:Desirable Cholestero l: less than 200 mg/dLBorderline High Cholesterol: 200-239 mg/dLHigh Cholesterol: greater than 239 mg/dL LDL Cholesterol Calculated 49 <100 mg/dL [facility] Comment:Desirable LDL: less than 100 mg/dLNear Optimal/Above Optimal LDL: 110- 129 mg/dLBorderline High LDL: 130-159 mg/dLHigh LDL: 160-189 mg/dLVery High LDL: greater than or equal to 190 mg/dL HDL Cholesterol 37(L) >40 mg/dL [facility] Comment:Desirable HDL: great er than 40 mg/dL Note: This HDL assay may give artificially low results in patients with liver disease. Blood Venous blood specimen / Unknown 04/10/2024 8:10 AM EST 04/10/2024 11:25 AM EST us Luis Manuel Name LAB BLOOD ORDERABLES Final Resul t Performing Organization Address City/State/[facility] Co de Phone Number [facility] [address] [place] [phone] from Last 3 Months or Most Recently Relevant to Health Maintenance Insurance [facility] [place] [address] [facility] STAND[facility] Care Teams Telephone Surveyor Relationship Specialty Start Date End Date Name, MD Luis Manuel [address] [place] [phone] PCP - General Family Medicine 03/25/17
--- OUTSIDE RECORDS SUMMARY | 2025-01-01 10:43 | XMS_ITS | Encounter Summary ---
Author Organization [employer] [facility] Address [address] [place] [address] Care Team Providers Care Porcelain Technician Name Role Phone Name, Luis Manuel VELARDE Primary Care Provider [phone] Jennifer Hernandez PharmD Unavailable [phone] Reason for Visit * Reason Comments Med Refill Encounter Details Date Type Department Care Team (Late Contact Info) Description 09/09/2022 Refill [facility] [address] [place] [address] Name, MD Luis Manuel [address] [place] [address] Anxiety disorder, unspecified type Social History Tobacco [...] 10:00 AM EST Office Visit [facility] [address] [place], [place] [phone] Bette Bryson, OD [address] [place] [address] 02/16/2025 1:00 PM EST Office Visit [facility] [address] [place] [address] Barbie Nova MD [address] [place] [address] 03/13/2025 10:00 AM EST Office Visit [facility] [address] [place] [address] Name, MD Luis Manuel [address] [place] [address] documented as of this encounter Goals Goal [...] documented as of this encounter Care Teams Porcelain Technician Relationship Specialty Start Date End Date Name, [place] [address] PCP - General Family Medicine 03/25/17 Jennifer Hernandez PharmD [address] [place] [phone] Pharmacist Internal Medicine 03/17/22 08/23/24 documented as of this encounter
== END 2025-01-01 10:39 | disposition home or self-care (01) ==
LOC: HO.HUSH 09:32
PROVIDERS: PCP Internal Medicine Geriatric Medicine; Visit Provider Nurse Practitioner Family
DX: R35.1 Nocturia (principal); Z87.898 Personal history of other specified conditions; N48.6 Induration penis plastica; N40.0 Benign prostatic hyperplasia without lower urinary tract symptoms; N32.89 Other specified disorders of bladder; Z13.9 Encounter for screening, unspecified
CPT/HCPCS: 99214; G2211

== ENCOUNTER → 2025-01-01 09:31 | Outpatient (BNVA) | payer OTHER, SELFPAY | PROVIDERS: PCP Internal Medicine Geriatric Medicine; Visit Provider Nurse Practitioner Family | DX: N40.1 Benign prostatic hyperplasia with lower urinary tract symptoms (principal); R35.1 Nocturia; N32.89 Other specified disorders of bladder; N48.6 Induration penis plastica; Z87.898 Personal history of other specified conditions | CPT/HCPCS: 51798; 81003; 99212 ==

== ENCOUNTER 2025-03-05 08:29 | Outpatient (REF) | payer OTHER, SELFPAY ==
--- OUTSIDE RECORDS SUMMARY | 2025-03-05 08:45 | XMS_ITS | Clinical Summary ---
Author Organization [employer] Address [address] [place] [address] Care Team Providers Care Cost Estimator Name Role Phone Name, Luis Manuel VELARDE Primary Care Provider [phone] Allergies No known active allergies Medications irbesartan (Avapro) 300 MG tabletIndicatio ns:Essential hypertension TAKE 1 TABLET BY MOUTH EVERY DAY 90 tablet 1 025 Active Continuous Glucose Refrigerating Oiler (FreeStyle Rolando 3 [place]) device 1 each Once per day. Use as directed for CGM 1 each 025 Active Continuous Glucose Sensor (FreeStyle Rolando 3 Plus Sensor) mis Apply 1 every 15 days as directed for CGM 2 each 02/07/20 25 1:59 PM EST 025 Active empagliflozin (Jardiance) 25 MGIndications:T ype 2 diabetes mellitus with other specified complication, unspecified whether keno terminal operator insulin use (HCC) Take 1 tablet (25 mg) by mouth in the morning. 30 tablet 5 02/20/20 25 11:56 AM EST 025 Active insulin glargine (Lantus SoloStar) 100 UNIT/ML penIndications: Type 2 diabetes mellitus with other specified complication, unspecified whether fdc insulin use (HCC) Inject 22 Units under the skin at bedtime. 15 mL 5 025 Active Lancets (OneTouch Delica Plus [id number]) mis Use to test blood sugar 4 times daily as directed 100 each 025 Active atorvastatin (Lipitor) 40 MG tabletIndicatio ns:Type 2 diabetes mellitus with other specified complication, unspecified whether keno terminal operator insulin use (HCC) Take 1 tablet (40 mg) by mouth Once per day. 90 tablet 3 01/31/20 25 1:46 PM EST 025 Active glucose blood (OneTouch Verio) test stripIndication s:Type 2 diabetes mellitus with other specified complication, unspecified whether fdc insulin use (HCC) Use to test blood sugar 4 time(s) daily as directed 100 each 11 025 Active tamsulosin (Flomax) 0.4 MG 24 hr capsule TAKE 2 CAPSULES BY MOUTH EVERY DAY 60 capsule 2 02/16/20 25 2:28 PM EST 025 Active metFORMIN (Glucophage) 500 MG tablet TAKE 1 TABLET BY MOUTH TWICE DAILY IN THE MORNING AND IN THE EVENING WITH MEALS 60 tablet 02/23/20 25 3:32 PM EST 025 Active amLODIPine (Norvasc) 10 MG tablet TAKE 1 TABLET BY MOUTH EVERY DAY 30 tablet 5 025 Active finasteride (Proscar) 5 MG tablet Take 1 tablet by mouth Once per day. Active insulin lispro (HumaLOG) 100 UNIT/ML injectionIndica tions:Type 2 diabetes mellitus with other specified complication, unspecified whether keno terminal operator insulin use (HCC) INJECT 10 UNITS SUBCUTANEOUSLY BEFORE BREAKFAST, 12 UNITS BEFORE LUNCH, AND 16 UNITS BEFORE SUPPER DIRECTED 15 mL 1 02/23/20 25 3:32 PM EST 025 Active escitalopram (Lexapro) 10 MG tabletIndicatio ns:Anxiety disorder, unspecified type TAKE 1 TABLET BY MOUTH EVERY DAY 30 tablet 02/16/20 25 2:28 PM EST 025 Active Salicylic Acid 10 % creamIndication s:Actinic keratosis Use Daily 227 g 025 Active pen needle 32G x 4 mm miscIndications :Type 2 diabetes mellitus with other specified complication, unspecified whether keno terminal operator insulin use (HCC) Use 4 times daily for insulin injection 100 each 11 024 2024 insulin lispro (HumaLOG) 100 UNIT/ML injectionIndica tions:Type 2 diabetes mellitus with other specified complication, unspecified whether keno terminal operator insulin use (HCC) INJECT 10 UNITS SUBCUTANEOUSLY BEFORE BREAKFAST, 12 UNITS BEFORE LUNCH, AND 16 UNITS BEFORE SUPPER DIRECTED 15 mL 1 025 2024 Discontinued escitalopram (Lexapro) 10 MG tabletIndicatio ns:Anxiety disorder, unspecified type TAKE 1 TABLET BY MOUTH EVERY DAY 30 tablet 025 2024 Discontinued Active Problems Problem Noted Date Diagnosed Date Acquired cataract 02/16/2024 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 02/16/2024 Overview (02/16/2024): Follows and [facility] Essential tremor 02/25/2022 Overview [...] Hyperlipidemia associated with type 2 diabetes m tysonitus 02/23/2017 Encounters Date Type Department Care Team Description 03/05/2025 Refill [facility] [address] [place] [address] NameLuis Manuel MD Essential hypertension 02/16/2025 1:00 PM EST Office Visit [facility] [address] [place], [place] [phone] Barbie Nova MD Actinic keratosis (Primary Dx) 02/16/2025 Travel 02/14/2025 Refill [facility] [address] [place], [place] [phone] Luis Manuel Wall MD Anxiety disorder, unspecified type 02/07/2025 Refill [facility] [address] [place], [place] [phone] Luis Manuel Wall MD Type 2 diabetes mellitus with other specified complication, unspecified whether keno terminal operator insulin use (HCC) 01/31/2025 Refill [facility] [address] [place] [address] Luis Manuel Wall MD 01/15/2025 10:00 AM EST Office Visit [facility] OPTOMETRY [address] [place] [address] Braydon, Bette, OD Moderate nonproliferative diabetic retinopathy of left eye without macular edema associated with type 2 diabetes mellitus (HCC) (Primary Dx); Mild nonproliferative diabetic retinopathy of right eye with macular edema associated with type 2 diabetes mellitus (HCC); Epiretinal membrane (ERM) of left eye; Pseudophakia of both eyes; Presbyopia 01/15/2025 Travel 2025 Refill [facility] [address] [place], [place] [phone] Luis Manuel Wall MD Anxiety disorder, unspecified type 12/14/2024 Refill [facility] [address] [place] [address] Luis Manuel Wall MD Type 2 diabetes mellitus with other specified complication, unspecified whether keno terminal operator insulin use (HCC) 12/13/2024 10:45 AM EDT Office Visit [facility] [address] [place] [address] Luis Manuel Wall MD Type 2 diabetes mellitus with stage 3a chronic kidney disease, with long-term current use of insulin (HCC) (Primary Dx) 12/13/2024 Travel 12/13/2024 Refill [facility] [address] [place] [address] Luis Manuel Wall MD 12/06/2024 Orders Only GENERIC EXTERNAL DATA DEPARTMENT Provider, Generic External Data 12/04/2024 Refill [facility] [address] [place], [place] [phone] Luis Manuel Wall MD Anxiety disorder, unspecified [...] Sign Reading Time Taken Comments Blood Pressure 124/66 02/16/2025 12:57 PM EST Pulse 70 02/16/2025 12:57 PM EST Temperature 36.6 C (97.8 F) 02/16/2025 12:57 PM EST Respiratory Rate 16 02/16/2025 12:57 PM EST Oxygen Saturation 98% 12/13/2024 10:45 AM EDT Inhaled Oxygen Concentration - - Weight 75.8 kg (167 lb 2 oz) 02/16/2025 12:57 PM EST Height 165.1 cm (5' 5 ) 02/16/2025 12:57 PM EST Body Mass Index 27.81 02/16/2025 12:57 PM EST Plan of Treatment Upcoming Encounters Date Type Department Care Team (Late st Contact Info) Description 03/13/2025 10:00 AM EST Office Visit [facility] [address] [place] [phone] Name, MD Luis Manuel [address] [place] [address] Health Maintenance Due Date Last Done Comments Derm Melanoma Skin Check 1950 Alcohol/Substance Use Screening 1960 Hepatitis C Screening 01/07/1966 Zoster Vaccines (1 of 2) 01/07/1998 RSV Patients and Patients Aged 60 years or older (1 - 1-dose 75+ series) 01/07/2023 COVID-19 Vaccine ( season) 2024 06/01/2022, 07/29/2021, 03/05/2021, Additional history exists Influenza Vaccine (#1) 2024 Diabetes: Hemoglobin A1C 03/07/2025 025, 08/01/2024, 03/03/2024, Additional history exists Lipid Panel 04/10/2025 04/10/2024, 03/0 10/2023, 02/26/2022, Additional history exists Depression Screening 08/01/2025 08/01/2024, 08/02/19 25 SDOH Screening 08/01/2025 08/01/2024 Diabetes: Foot Exam 12/13/2025 12/13/2024, 12/13/2024, 12/13/2024, Additional history exists Eye Exam 01/15/2026 01/15/2025, 110 05/2024, 01/15/2025, Additional history exists Tobacco Screening 02/02/2026 02/02/2025 DTaP/Tdap/Td Vaccines (2 - Td or Tdap) [...] 5 11:23 AM EDT) No Jennifer Hernandez, Cornelius Note: A1 goal of <8% (personalized based on age, hx of hypoBG) Record your blood sugar as directed Result Component On track( 023 12:34 PM EST) No Jennifer Hernandez, Cornelius Note: Monitor BG via CGM ensuring sensor is scanned at least once every 8 hours. Use manual SMBG as needed & as directed. Help patients manage their type 2 diabetes Care Plan Help patients manage their type 2 diabetes No Bette Bryson, OD Weekly blood pressure task Care Plan Weekly blood pressure task No Bette Bryson, OD Help patients manage their type 2 diabetes Care Plan Help patients manage their type 2 diabetes No Bette Bryson, OD Patient has diabetic eye disease Care Plan Patient has diabetic eye disease No Braydon, Bette, OD Help patients manage their type 2 diabetes Care Plan Help patients manage their type 2 diabetes No Braydon, Bette, OD Patient has chronic kidney disease Care Plan Patient has chronic kidney disease No Braydon, Bette, OD Weekly blood pressure task Care Plan Weekly blood pressure task No Braydon, Bette, OD Weekly blood pressure task Care Plan Weekly blood pressure task No Braydon, Bette, OD Patient has diabetic eye disease Care Plan Patient has diabetic eye disease No Braydon, Bette, OD Patient has diabetic eye disease Care Plan Patient has diabetic eye disease No Braydon, Bette, OD Patient has chronic kidney disease Care Plan Patient has chronic kidney disease No Braydon, Bette, OD Patient has chronic kidney disease Care Plan Patient has chronic kidney disease No Braydon, Bette, OD Weekly blood pressure task Care Plan Weekly blood pressure task No Barbie Nova MD Weekly blood pressure task Care Plan Weekly blood pressure task No Barbie Nova MD Weekly blood pressure task Care Plan Weekly blood pressure task No Barbie Nova MD Patient has diabetic eye disease Care Plan Patient has diabetic eye disease No Barbie Nova MD Patient has diabetic eye disease Care Plan Patient has diabetic eye disease No Barbie Nova MD Patient has diabetic eye disease Care Plan Patient has diabetic eye disease No Barbie Nova MD Patient has chronic kidney disease Care Plan Patient has chronic kidney disease No Barbie Nova MD Patient has chronic kidney disease Care Plan Patient has chronic kidney disease No Barbie Nova MD Patient has chronic kidney disease Care Plan Patient has chronic kidney disease No Barbie Nova MD Procedures Procedure Name Priority Date/Time Associated Diagnosis Comments OCT, RETINA - OU - BOTH EYES Routine 01/15/2025 10:00 AM EST Epiretinal membrane (ERM) of left eye US RETROPERITONEAL COMPLETE Routine 12/18/2024 1:33 PM [...] mellitus with other specified complication, unspecified whether fdc insulin use (CMS/[facility]) Prostatism Essential hypertension Hyperlipidemia associated with type 2 diabetes mellitus (CMS/HCC) ([facility]) from Last 3 Months or Most Recently Relevant to Health Maintenance Results * OCT, Retina - OU - Both Eyes (01/15/2025 10:00 AM EST) Bette Michaud, OD - 02/02/2025 9:39 AM EST Images from the original result were not included. OCT [employer] Optical Coherence Tomography Interpretation Report Measurements: OD OS Macula Thickness 259 microns 304 microns Test findings: OD: Normal foveal contour, no cystoid macular edema, no retinal pigment epithelium disruption, no subretinal fluid OS: Distorted foveal contour with significant epiretinal membrane, few scattered intraretinal exudates, few small cystic spaces, no retinal pigment epithelium disruption, no subretinal fluid Impression and Plan: Significant epiretinal membrane in the left eye. Mild non-proliferative diabetic retinopathy without macular edema in the right eye. Moderate non-proliferative diabetic retinopathy with early macular edema in the left eye. Will monitor here in 6 months. us Bette Bryson OD OPHTH TOMOGRAPHY Final Result * US Retroperitoneal Complete (12/18/2024 1:33 PM EDT) Anatomical Region Laterality Modality Ultrasound 12/18/2024 1:33 PM EDT Narrative 12/18/2024 2:11 PM EDT [address] [address] Ultrasound Report Signed Patient: Dg Meza MR#: [id number] : 1950 Acct:[id number] Age/Sex: 74 / M ADM Date: 12/18/24 Loc: HO.US Attending Dr: Caren KING- Ordering Physician: Caren Gambino Date of Service: 12/18/24 Procedure(s): US retroperitoneal comp Accession Number(s): [id number] cc: Caren Gambino LAMINE; Name,Luis Manuel VELARDE Reason for Exam: R35.1 [...] by Chadd Chapa MD in OV> 12/18/24 1405 DD/ 1333 TD/TT: 12/18/24 1355 Finance Associate: Procedure Note Donotuseinterpreter, Image - 12/18/[address] [address] Ultrasound Report Signed Patient: Dg MezaMR#: [id number] : 8Acct:[id number] Age/Sex: 74 / MADM Date: 12/18/24 Loc: HO.US Attending Dr: Caren RAMAN Ordering Physician: Caren Gambino Date of Service: 12/18/24 Procedure(s): US retroperitoneal comp Accession Number(s): [id number] cc: Caren Gambino; Name,Luis Manuel VELARDE Reason [...] 12/18/24 1408 DD/ 1333 TD/TT: 12/18/24 1355 Finance Associate: us [facility] External Provider IMG US PROCEDURES Final [...] Specific Antigen 2.03 <0.05 - 4.0 ng/mL [facility] Comment:PSA methodology: Missy Funez i ChemiluminescentMicroparticle Immunoassay (CMIA) 12/06/2024 11:2 3 AM EDT 12/06/2024 11:23 AM EDT Generic External Data Provider LAB BLOOD ORDERAB LES Final Result [facility] [address] [place] [phone] * (ABNORMAL) Hemoglobin A1c (12/06/2024 11:23 AM EDT) Hemoglobin A1c 8.7(H) <6.0 % [facility] Comment:Hemoglobin A1C Refer ence Range Adults: 4.8 - 6.0 % Non diabetic: < 6.0 % Goal: < 7.0 %Additional Action Suggested: > 8.0 %Note: Hemoglobin A1c results are invalid for patients with abnormal amounts of HbF. Blood transfusions may impact the HbA1c concentration in the patient sample. Estimated Average Glucose 203 mg/dL [facility] Comment:eAG = Estimated ave rage glucose which is %A1C expressed asaverage glucose, using the formula of the A0S-LhyeorxWxfumgz Glucose study (ADAG), Diabetes Care, Vol.31,#8,2007 12/06/2024 11:2 3 AM EDT 12/06/2024 11:23 AM EDT us Generic External Data Provider LAB BLOOD ORDERAB LES Final Result [facility] [address] [place] [phone] * (ABNORMAL) Lipid Panel, Standard (04/10/2024 8:10 AM EST) Triglycerides 156(H) <150 mg/dL [facility] Comment:Desirable Triglyceri de: less than 150 mg/dLBorderline High Triglyceride 150-199 mg/dLHigh Triglyceride: 200-499 mg/dLVery High Triglyceride: greater than or equal to 5OO mg/dL Cholesterol 117 <200 mg/dL [facility] Comment:Desirable Cholestero l: less than 200 mg/dLBorderline High Cholesterol: 200-239 mg/dLHigh Cholesterol: greater than 239 mg/dL LDL Cholesterol Calculated 49 <100 mg/dL [facility] Comment:Desirable LDL: less than 100 mg/dLNear Optimal/Above Optimal LDL: 110- 129 mg/dLBorderline High LDL: 130-159 mg/dLHigh LDL: 160-189 mg/dLVery High LDL: greater than or equal to 190 mg/dL HDL Cholesterol 37(L) >40 mg/dL [facility] Comment:Desirable HDL: great er than 40 mg/dL Note: This HDL assay may give artificially low results in patients with liver disease. Blood Venous blood specimen / Unknown 04/10/2024 8:10 AM EST 04/10/2024 11:25 AM EST us Luis Manuel Name LAB BLOOD ORDERABLES Final Resul t [facility] [address] [place] [address] [phone] from Last 3 Months or Most Recently Relevant to Health Maintenance Additional Health Concerns Active Problems Noted Date Diagnosed Date Help patients manage their type 2 diabetes 02/02 Weekly blood pressure task 02/02/2025 Help patients manage their type 2 diabetes 02/02 Patient has diabetic eye disease 02/02/2025 Help patients manage their type 2 diabetes 02/02 Patient has chronic kidney disease 02/02/2025 Weekly blood pressure task 02/02/2025 Weekly blood pressure task 02/02/2025 Patient has diabetic eye disease 02/02/2025 Patient has diabetic eye disease 02/02/2025 Patient has chronic kidney disease 02/02/2025 Patient has chronic kidney disease 02/02/2025 Weekly blood pressure task 02/16/2025 Weekly blood pressure task 02/16/2025 Weekly blood pressure task 02/16/2025 Patient has diabetic eye disease 02/16/2025 Patient has diabetic eye disease 02/16/2025 Patient has diabetic eye disease 02/16/2025 Patient has chronic kidney disease 02/16/2025 Patient has chronic kidney disease 02/16/2025 Patient has chronic kidney disease 02/16/2025 Insurance [facility] [employer] Care Teams Cost Estimator Relationship Specialty Start Date End Date Name, MD Luis Manuel [address] [place] [address] PCP - General Family Medicine 03/25/17
--- OUTSIDE RECORDS SUMMARY | 2025-03-05 08:45 | XMS_ITS | Encounter Summary ---
Author Organization [employer] Address [address] [place] [address] Care Team Providers Care Criminal Attorney Name Role Phone Name, Luis Manuel VELARDE Primary Care Provider [phone] Reason for Visit * Reason Comments Med Refill Encounter Details Date Type Department Care Team ([facility] st Contact Info) Description 03/05/2025 Refill [facility] [address] [place], [place] [phone] Name, MD Luis Manuel [address] [place] [address] Essential hypertension Social History Tobacco Use Types Packs/Day Years [...] Description 03/13/2025 10:00 AM EST Office Visit [facility] [address] [place] [address] Name, MD Luis Manuel [address] [place] [address] documented as of this encounter Goals Goal [...] manage their type 2 diabetes No Bette Bryson OD Weekly blood pressure task Care Plan Weekly blood pressure task No Braydon, Bette, OD Help patients manage their type 2 diabetes Care Plan Help patients manage their type 2 diabetes No Braydon, Bette, OD Patient has diabetic [...] chronic kidney disease No Barbie Nova MD documented as of this encounter Visit Diagnoses Diagnosis Essential hypertension Unspecified essential hypertension documented in this encounter Additional Health Concerns Active Problems Noted Date [...] 02/16/2025 Patient has chronic kidney disease 02/16/2025 Assessment Noted Time PHQ-9 Depression Total Score: 7 08/02/19 25 11:00 AM EDT documented as of this encounter Care Teams Criminal Attorney Relationship Specialty Start Date End Date Name, MD Luis Manuel [address] [place] [phone] PCP - General Family Medicine 03/25/17 documented as of this encounter
--- OUTSIDE RECORDS SUMMARY | 2025-03-05 08:45 | XMS_ITS | Clinical Summary ---
Author Organization [facility] Address [address] [place] [address] Care Team Providers Care Sap Manager Name Role Phone Name, Luis Manuel Primary Care Provider [phone] Allergies No known active allergies Medications acetaminophen [...] Plan of Treatment Not on file Insurance [facility] Care Teams Sap Manager Relationship Specialty Start Date End Date Name, uLis Manuel [address] [place] [address] PCP - General Internal Medicine 01/17/21
--- OUTSIDE RECORDS SUMMARY | 2025-03-05 08:45 | XMS_ITS | Encounter Summary ---
Author Organization [employer] [facility] Address [address] [facility] 7t [place] [address] Care Team Providers Care Maintenance Team Leader Name Role Phone Name, Luis Manuel VELARDE Primary Care Provider [phone] Jennifer Hernandez PharmD Unavailable [phone] Reason for Visit * Reason Comments Med Refill Encounter Details Date Type Department Care Team (Late Contact Info) Description 09/09/2022 Refill [facility] MEDICINE [address] [place] [phone] Name, MD Luis Manuel [address] [place] [phone] Anxiety disorder, unspecified type Social History Tobacco [...] Department Care Team (Late Contact Info) Description 03/13/2025 10:00 AM EST Office Visit [facility] [address] [place] [address] Name, [place] [address] documented as of this encounter Goals Goal [...] documented as of this encounter Care Teams Maintenance Team Leader Relationship Specialty Start Date End Date Name, [place] [address] PCP - General Family Medicine 03/25/17 Jennifer Hernandez PharmD [address] [place] [phone] Pharmacist Internal Medicine 03/17/22 08/23/24 documented as of this encounter
--- OUTSIDE RECORDS SUMMARY | 2025-03-05 08:45 | XMS_ITS | Encounter Summary ---
Author Organization [employer] [facility] Address [address] [facility] [address] [place] [address] Care Team Providers Care Scrap Charger Name Role Phone Name, Luis Manuel VELARDE Primary Care Provider Jennifer Hernandez PharmD Unavailable Encounter Details Date Type Department Care Team ([facility] Contact Info) Description 02/24/2022 Abstract [facility] [address] [place] [phone] Name, MD Luis Manuel [address] [place] [phone] Social History Tobacco Use Types Packs/Day Years [...] Upcoming Encounters Date Type Department Care Team ([facility] Contact Info) Description 03/13/2025 10:00 AM EST Office Visit [facility] [address] [place] [phone] Name, MD Luis Manuel [address] [place] [address] [phone] documented as of this encounter Visit Diagnoses Not on filedocumented in this encounter Care Teams Scrap Charger Relationship Specialty Start Date End Date Name, MD Luis Manuel [address] [place], [place] [phone] PCP - General Family Medicine 03/25/17 Jennifer Hernandez PharmD [address] [place] [address] Pharmacist Internal Medicine 03/17/22 08/23/24 documented as of this encounter
--- OUTSIDE RECORDS SUMMARY | 2025-03-05 08:45 | XMS_ITS | Encounter Summary ---
Author Organization [employer] Address [address] [place] [address] Care Team Providers Care Capsule Filler Name Role Phone Name, Luis Manuel VELARDE Primary Care Provider [phone] Jennifer Hernandez PharmD Unavailable Reason for Visit * Reason Comments Med Refill Encounter Details Date Type Department Care Team ([facility] st Contact Info) Description 03/02/2022 Refill [facility] [address] [place] [address] Name, MD Luis Manuel [address] [place] [address] Social History Tobacco Use Types Packs/Day Years [...] Description 03/13/2025 10:00 AM EST Office Visit [facility] [address] [place] [address] Name, MD Luis Manuel [address] [place] [phone] documented as of this encounter Visit Diagnoses Not on filedocumented in this encounter Additional Health Concerns Assessment Noted Time PHQ-9 Depression Total Score: 0 02/26/20 22 3:35 PM EST documented as of this encounter Care Teams Capsule Filler Relationship Specialty Start Date End Date Name, MD Luis Manuel [address] [place] [phone] PCP - General Family Medicine 03/25/17 Jennifer Hernandez PharmD [address] [place] [phone] Pharmacist Internal Medicine 03/17/22 08/23/24 documented as of this encounter
--- OUTSIDE RECORDS SUMMARY | 2025-03-05 08:45 | XMS_ITS | Encounter Summary ---
Author Organization [employer] [facility] Address [address] [place] [address] Care Team Providers Care Ramp Manager Name Role Phone Name, Luis Manuel VELARDE Primary Care Provider [phone] Jennifer Hernandez PharmD Unavailable [phone] Encounter Details Date Type Department Care Team ([facility] Contact Info) Description 03/02/2022 Orders Only [facility] [address] [place] [address] Nohemy Diaz LPN Social History Tobacco Use [...] Description 03/13/2025 10:00 AM EST Office Visit [facility] [address] [place] [address] Name, MD Luis Manuel [address] [place] [address] documented as of this encounter Visit Diagnoses Not on filedocumented in this encounter Additional Health Concerns Assessment Noted Time PHQ-9 Depression Total Score: 0 02/26/20 22 3:35 PM EST documented as of this encounter Care Teams Ramp Manager Relationship Specialty Start Date End Date Name, MD Luis Manuel [address] [place] [address] PCP - General Family Medicine 03/25/17 Jennifer Hernandez PharmD [address] [place] [address] Pharmacist Internal Medicine 03/17/22 08/23/24 documented as of this encounter
--- OUTSIDE RECORDS SUMMARY | 2025-03-05 08:45 | XMS_ITS | Encounter Summary ---
Author Organization [employer] Address [address] [place] [address] Care Team Providers Care Director Telemetry Name Role Phone Name, Luis Manuel VELARDE Primary Care Provider [phone] Jennifer Hernandez PharmD Unavailable [phone] Reason for Visit * Reason Comments Med Refill Encounter Details Date Type Department Care Team ([facility] st Contact Info) Description 12/23/2022 Refill [facility] [address] [place], [place] [phone] Name, MD Luis Manuel [address] [place] [address] Fear of flying Social History Tobacco Use [...] Description 03/13/2025 10:00 AM EST Office Visit [facility] [address] [place], [place] [phone] Name, MD Luis Manuel [address] [place] [address] documented as of this encounter Goals Goal [...] documented as of this encounter Care Teams Director Telemetry Relationship Specialty Start Date End Date Name, MD Luis Manuel [address] [place] [address] PCP - General Family Medicine 03/25/17 Jennifer Hernandez PharmD [address] [place], [place] [id number] Pharmacist Internal Medicine 03/17/22 08/23/24 documented as of this encounter
--- OUTSIDE RECORDS SUMMARY | 2025-03-05 08:45 | XMS_ITS | Encounter Summary ---
Author Organization [employer] Address [address] [place] [address] Care Team Providers Care Finishing Machine Operator Name Role Phone Name, Luis Manuel VELARDE Primary Care Provider [phone] Jennifer Hernandez PharmD Unavailable [phone] Reason for Visit * Reason Onset Date Comments Pre Op 02/22/2024 Encounter Details Date Type Department Care Team ([facility] Contact Info) Description 02/22/2024 Telephone [facility] [address] [place] [address] Name, MD Luis Manuel [address] [place] [address] Pre Op Social History Tobacco Use Types [...] MD Facility name: [facility] Surgeon's office number: [phone] ext [facility] Surgeon's office fax number: [phone] Contact name (person you spoke with): Maday Newman office note from surgeon requested: Yes Send Message to Sayda Guzman and Yasir Coley Requested to contact office instead of pt. documented in this encounter Plan of Treatment Upcoming Encounters Date Type Department Care Team (Late st Contact Info) Description 03/13/2025 10:00 AM EST Office Visit [facility] [address] [place] [address] Name, MD Luis Manuel [facility] [place] [address] documented as of this encounter Goals Goal Patient Goal Type Associated Problems Recent Progress Patient-Stated? Author Hemoglobin A1c < 8 Result Component 8.7( 5 11:23 AM EDT) No Jennifer Hernandez [...] documented as of this encounter Care Teams Finishing Machine Operator Relationship Specialty Start Date End Date Name, MD Luis Manuel [facility] [place] [address] PCP - General Family Medicine 03/25/17 [place] [address] Pharmacist Internal Medicine 03/17/22 08/23/24 documented as of this encounter
[2025-03-05 09:46] LABS: Anion Gap 13 (12-20); Blood Urea Nitrogen 31 mg/dL (9-16); Calcium 9.5 mg/dL (8.4-10.2); Carbon Dioxide 25 mmol/L (22-29); Chloride 108 mmol/L (96-108); Estimated Glomerular Filt Rate 45; Potassium 4.7 mmol/L (3.3-5.1); Sodium 141 mmol/L (135-145)
[2025-03-05 09:51] LABS: Microalbum/Creatinine Ratio Ur 221.9 ug/mg cr (<30)
== END 2025-03-05 08:30 | disposition home or self-care (01) ==
LOC: HO.LAB 08:29
PROVIDERS: PCP Internal Medicine Geriatric Medicine; Visit Provider Internal Medicine Geriatric Medicine
DX: E11.22 Type 2 diabetes mellitus with diabetic chronic kidney disease (principal); N18.31 Chronic kidney disease, stage 3a; Z79.4 Long term (current) use of insulin
CPT/HCPCS: 36415; 80048; 82043; 82570